=== PATIENT | female | born 1975 | race Caucasian/White ===

== ENCOUNTER → 2016-10-11 | Outpatient (CLI) | payer MEDICARE, MEDICAID | LOC: EMS 13:12 | PROVIDERS: ATTEND Family Medicine | DX: R41.82 Altered mental status, unspecified (principal); T50.904A Poisoning by unspecified drugs, medicaments and biological substances, undetermined, initial encounter; T68.XXXA Hypothermia, initial encounter ==

== ENCOUNTER → 2016-10-11 | Emergency (ER) | payer SELFPAY ==
[~2016-10-11] VITALS: Ht 162.6 cm; Wt 70.5 kg
[~2016-10-11] MED LIST: CEPH500T PO; LIDOCAINE PF 2% (XYLOCAINE) 5 ML VIAL INJ ONE; LORazepam 2 MG/ML (ATIVAN) 1 ML VIAL IV ONE; LORazepam 2 MG/ML (ATIVAN) 1 ML VIAL ONE; MAGNESIUM SULFATE 1GM VIAL 2 GM, THIAMINE INJ 100 MG, MULTIVITAMIN INJ 10 ML in D5LR 1,... IV SCH; PROPOFOL 10 MG/ML IV ONE; ROCURONIUM 50 MG/5 ML (ZEMURON) VIAL IV ONE; SODIUM CHLORIDE FLUSH 3 ML SYR IV ONE; SUCCINYLCHOLINE 20 MG/ML 10 ML VIAL ONE
[2016-10-11 10:15] VITALS: BP 140/107
--- NOTE | 2016-10-11 10:15 | NUR ---
MULTIPLE STAFF INCLUDING DR. REDD WITH PATIENT.
[2016-10-11] MEDS: SODIUM CHLORIDE FLUSH 10 ML SYR IV PRN ×2 (10:30→11:02)
--- NOTE | 2016-10-11 10:30 | NUR ---
IO ACCESS OBTAINED IN PT'S RT LOWER LEG BY EMS. MULTIPLE STAFF CONTINUE TO LOOK FOR PERIPHERAL IV ACCESS BUT WITHOUT SUCCESS.
--- NOTE | 2016-10-11 10:47 | NUR ---
EKG DONE BY RESP THERAPIST Melissa YEE.
--- NOTE | 2016-10-11 10:57 | NUR ---
HURST CATH DRAINAGE BAG EMPTIED BY Aleja MARROQUIN RN - TOTAL OF 700 ML YELLOW URINE MEASURED.
[2016-10-11 11:01] LABS: BASOPHILS % (AUTO) 0 % (0-2); EOSINOPHILS # (AUTO) 0.1 10^3uL; EOSINOPHILS % (AUTO) 1 % (0-4); LYMPHOCYTES # (AUTO) 1.8 X10^3; MEAN CORPUSCULAR HEMOGLOBIN 29.7 PG (26.0-34.0); MEAN CORPUSCULAR HGB CONC 33.1 g/dL (31.0-37.0); MEAN CORPUSCULAR VOLUME 90 FL (80-100); MEAN PLATELET VOLUME 8.2 FL (6.0-9.5); MONOCYTES # (AUTO) 0.5 X10^3; MONOCYTES % (AUTO) 8 % (3-11); NEUTROPHILS % (AUTO) 63 % (51-67); PLATELET COUNT 350 10^3uL (150-450)
--- NOTE | 2016-10-11 11:02 | NUR ---
ATIVAN 1 MG GIVEN PER IO BY Gayathri DIAZ RN
[2016-10-11 11:06] LABS: BILIRUBIN,URINE Negative (Negative); CLARITY,URINE Clear; GLUCOSE, URINE (UA) Negative (Negative); LEUKOCYTE ESTERASE ,URINE Negative (Negative); UROBILINOGEN,URINE 0.2 mg/dL (0.2-1.0)
[2016-10-11 11:12] LABS: COLOR,URINE Light Yellow
--- NOTE | 2016-10-11 11:14 | NUR ---
Michele HENDERSON CRNA HERE AND PREPARING TO INTUBATE PATIENT - ASSISTED BY Gayathri DIAZ RN
--- NOTE | 2016-10-11 11:15 | NUR ---
DR. REDD PUSHES PROPOFOL 120 MG PER IO
--- NOTE | 2016-10-11 11:16 | NUR ---
DR. REDD PUSHES SUCC 100 MG PER IO FOLLOWED BY NS FLUSH 10 ML.
[2016-10-11 11:17] LABS: AMPHETAMINE SCREEN, URINE Positive (Negative); CANNABINOID SCREEN, URINE Negative (Negative); METHAMPHETAMINE SCREEN URINE S POSITIVE (NEGATIVE); OPIATE SCREEN URINE Negative (Negative); PROPOXYPHENE STAT NEGATIVE (NEGATIVE)
[2016-10-11 11:17] LABS: ALBUMIN 4.1 g/dL (3.4-5.0); ALKALINE PHOSPHATASE 126 U/L (38-126); ANION GAP 16.2 MEQ/L (3-15); BUN/CREATININE RATIO 23 (10-20); CALCULATED IONIZED CALCIUM 4.1 mg/dL (3.8-4.6); CREATINE KINASE 148 U/L (30-135); TOTAL PROTEIN 7.3 g/dL (6.4-8.5)
--- NOTE | 2016-10-11 11:17 | NUR ---
FRATERNITY HOUSE COOK HAS PLACED 7.5 CUFFED ET TUBE, 22 AT TEETH, POSITIVE END-TIDAL CO2 PER IN-LINE DEVICE, POSITIVE BILAT BREATH SOUND PER DR. REDD ASCULTATION.
--- NOTE | 2016-10-11 11:19 | NUR ---
ET TUBE BEING SECURED BY PHARMACY SPECIALIST.
--- NOTE | 2016-10-11 11:26 | NUR ---
ROCURONIUM 50 MG BY SURGICAL INSTRUMENT TECHNICIAN WHO REMAINS WITH PATIENT IN CT ROOM.
--- NOTE | 2016-10-11 11:46 | NUR ---
PATIENT IN ER-6 WITH HORSE BREAKER WHO IS PREPARING TO INSERT A CENTRAL LINE.
--- NOTE | 2016-10-11 12:11 | NUR ---
FOUNDRY OPERATOR REQUESTS STAFF CONTACT SURGEON ON-CALL TO COME TO ED TO ASSIST WITH CENTRAL LINE PLACEMENT.
--- NOTE | 2016-10-11 12:11 | Diagnostic Imaging Report ---
PROCEDURE: CT head without contrast. TECHNIQUE: Multiple contiguous axial images were obtained through the brain without the use of intravenous contrast. DATE: October 11, 2016. COMPARISON: None. INDICATION: 61-year-old female, altered mental status. Found unconscious at home. FINDINGS: There is an endotracheal tube noted. There is a very small amount of fluid in the right and left maxillary sinuses. There is mild partial nonspecific opacification of the bilateral ethmoidal air cells. The mastoid air cells and middle ears are well aerated. The ventricles and cerebral spinal fluid spaces are of normal size and configuration for the patient's age. There is no mass effect or midline shift. There is no acute intracranial hemorrhage. There is no abnormal extra-axial fluid collection. IMPRESSION: 1. No identified acute intracranial abnormality. Dictated by: Dictated on workstation # [id number]
--- NOTE | 2016-10-11 12:16 | NUR ---
CONTRACT ADMINISTRATION MANAGER HAS OBTAINED CENTRAL LINE PLACEMENT INTO RT INTERNAL JUGULAR. SURGEON (DR. GARCIA) NOTIFIED BY Aleja PATTERSON RN.
--- NOTE | 2016-10-11 12:19 | NUR ---
DR REDD TALKS TO [facility] RE POSS TRANSPORT. CL
--- NOTE | 2016-10-11 12:28 | NUR ---
MEDICAL TERMINOLOGIST COMPLETING SUTURING AND DRSNG OF CENTRAL LINE.
--- NOTE | 2016-10-11 12:35 | NUR ---
SECOND DOSE OF ATIVAN 1 MG HELD PER ORDER OF WINE MASTER.
--- NOTE | 2016-10-11 12:35 | NUR ---
REAL ESTATE BROKER ADMINS ANOTHER 50 MG OF ROCURONIUM PER BROWN PORT OF CENTRAL LINE.
--- NOTE | 2016-10-11 12:37 | NUR ---
RADIOLOGY HAS DONE THE PORTABLE CHEST XRAY.
--- NOTE | 2016-10-11 12:44 | NUR ---
TEMPORAL TEMP - 95.5. RESP THERAPIST ATTEMPTING TO GET ABG.
--- NOTE | 2016-10-11 12:48 | NUR ---
NASAL TRUMPET PULLED BY Savannah SHOOK RN PER ORDER DR. REDD.
--- NOTE | 2016-10-11 12:48 | NUR ---
ABG OBTAINED BY RESP THERAPIST.
--- NOTE | 2016-10-11 12:49 | NUR ---
VENTILATIONS PER ET TUBE/BVM WITH OXYGEN AT 10 LPM CONTINUE PER STAFF. AWAITING VENTILATOR SET UP IN PREP FOR TRANSFER.
--- NOTE | 2016-10-11 12:51 | NUR ---
BOYFRIEND HERE IN ROOM WITH PATIENT. DR. REDD SPEAKING TO HIM ABOUT PT'S CONDITION AND PLAN OF CARE.
--- NOTE | 2016-10-11 12:54 | Diagnostic Imaging Report ---
INDICATION: Intubation. TECHNIQUE: A PA chest was obtained at 1239 hours. FINDINGS: An ET tube is seen with the tip overlying the mid to lower trachea. The right IJ central catheter tip overlies the low SVC. There is no pneumothorax or pleural fluid. There is poor inspiration but no focal infiltrate. The heart is normal in size. IMPRESSION: Life-support lines as above in good position. Poor inspiration with no focal infiltrate, pleural fluid, or pneumothorax. Dictated by: Dictated on workstation # [id number]
--- NOTE | 2016-10-11 13:00 | NUR ---
PT VALUABLES: SILVER COLORED LIP RING, SILVER COLORED CHAIN NECKLACE, SILVER COLORED CHAIN BRACELET, SILVER COLORED RING, BLACK COLORED WRIST WATCH, AND 2 EARRINGS GIVEN TO GASTON HURTADO (BOYFRIEND) BY Aleja MARROQUIN RN.
--- NOTE | 2016-10-11 13:02 | NUR ---
PATIENT REPORT BEING GIVEN TO [facility] NURSE. EMS MANGLE FEEDER HERE AND ALSO LISTENING TO PT REPORT.
--- NOTE | 2016-10-11 13:15 | NUR ---
PT BEING LOADED ONTO EMS CART
--- NOTE | 2016-10-11 13:21 | NUR ---
PATIENT DEPARTS WITH IO AND IJ LINES INTACT AND WITH IVF INFUSING.
[2016-10-11 14:28] LABS: ABG OXYGEN SATURATION 100 % (95-98); ABG PCO2 42 mmHg (35-45); ABG PH 7.35 (7.35-7.45); ABG PO2 224 mmHg (80-105)
--- NOTE | 2016-10-12 12:50 | PAIN MANAGEMENT ---
Date of note: 10/11/2016 Procedure: Emergent intubation The patient is approximately 41-years old. She presents in the ER under Dr. Fausto Melissa. Anesthesia was consulted for the purpose of airway management. The patient arrived with poly-substance drug overdose and is very lethargic. She comes in and out of it. At this point in time we are concerned about airway. Anesthesia was asked for emergent intubation with the idea to transport patient afterwards. Vital signs were stable. The patient was mid 90s on 3 liters per nasal cannula. She also had a nasal trumpet in place. Unresponsive to painful stimulation. IV access was a right IO placed EMS. It does flow and was used to induce intubation. Medicines given were 120 mg of propofol followed by 100 mg of succinylcholine. Cricoid pressure was held in place throughout. A 7.5 oral endotracheal tube was placed and secured at 22 cm at the teeth. Positive end-tidal CO2 per inline device noted. Positive breath sounds bilateral and equal noted per ER physician Dr. Melissa. The patient was bag ventilated by anesthesia. The patient is waiting to go to CT. The patient's vital signs remained stable at 99% on 10 liters per Ambu bag. The patient tolerated the procedure well.
== END | disposition short-term general hospital (02) ==
LOC: EDUNIT# 10:15 → ED 10:16 → EDUNIT# 10:16
DX: T42.4X1A Poisoning by benzodiazepines, accidental (unintentional), initial encounter (principal); T43.621A Poisoning by amphetamines, accidental (unintentional), initial encounter; R82.5 Elevated urine levels of drugs, medicaments and biological substances; R68.0 Hypothermia, not associated with low environmental temperature; Y92.002 Bathroom of unspecified non-institutional (private) residence as the place of occurrence of the external cause; F19.188 Other psychoactive substance abuse with other psychoactive substance-induced disorder
CPT/HCPCS: 31500; 36415; 36680; 51702; 70450; 80053; 80307; 80320; 80329; 81003; 82550; 82553; 82803; 83605; 84484; 85025; 86140; 87040; 93005; 96361; 96365; 96375; 96376; 99285; J0330; J1642; J2001; J2060; J3411; J3475; J7030; 71010

== ENCOUNTER → 2016-10-11 | Emergency (ER) | payer MEDICARE, MEDICAID ==
--- NOTE | 2016-10-11 15:19 | PAIN MANAGEMENT ---
Date of note: 10/11/2016 Procedure: Emergent intubation The patient is approximately 41-years old. She presents in the ER under Dr. Fausto Melissa. Anesthesia was consulted for the purpose of airway management. The patient arrived with poly-substance drug overdose and is very lethargic. She comes in and out of it. At this point in time we are concerned about airway. Anesthesia was asked for emergent intubation with the idea to transport patient afterwards. Vital signs were stable. The patient was mid 90s on 3 liters per nasal cannula. She also had a nasal trumpet in place. Unresponsive to painful stimulation. IV access was a right IO placed EMS. It does flow and was used to induce intubation. Medicines given were 120 mg of propofol followed by 100 mg of succinylcholine. Cricoid pressure was held in place throughout. A 7.5 oral endotracheal tube was placed and secured at 22 cm at the teeth. Positive end-tidal CO2 per inline device noted. Positive breath sounds bilateral and equal noted per ER physician Dr. Melissa. The patient was bag masked by anesthesia. The patient is waiting on at this point in time to go to CT. the patient's vital signs remained stable at 99% on 10 liters per Ambu bag. The patient tolerated the procedure well.
--- NOTE | 2016-10-11 15:22 | PAIN MANAGEMENT ---
Date of Note: 10/11/2016 This is a 41-years old female patient who presents in the ER emergently under Dr. Fausto Melissa. She was brought in with polysubstance drug overdose. The patient was just intubated by anesthesia. The patient needs to go to CT. Anesthesia went with patient for airway management throughout CT. The patient tolerated the procedure well. The patient was bagged by anesthesia throughout. Vital signs remained stable. Sats remained in the upper 90s on 10 liters per Ambu bag. The patient is noted to be cold. The patient was covered and tried to warm up as best as possible. She tolerated the procedure in CT well.
--- NOTE | 2016-10-11 15:30 | PAIN MANAGEMENT ---
Date of note: 10/11/2016 Procedure: IJ line catheter placement This is a 41-year-old patient who presents under the care of Dr. Fausto Melissa in the ER. Anesthesia was consulted for the purpose of a for central line placement secondary to the need for IV access. The patient had been poked multiple times without success. An interosseous IV was placed in the interim. Anesthesia was consulted for central line specifically. Consent is obtained per physician as an emergency. A right IJ triple lumen was placed with the use of ultrasound guidance. Orders for procedure verified. Medical history including allergies and medications reviewed. After informed consent was obtained, the patient was placed in Trendelenburg position. Landmarks identified and ultrasound used to identify the internal jugular and carotid artery. The site was then prepped and draped in aseptic fashion. The skin and overlying tissues localized with 5 mL of 1% lidocaine using a 25-gauge 1.5-inch needle. Negative aspiration during localization. A 23-gauge 1.5-inch needle was then used to locate central vein. The vein was then cannulated with the supplied needle and found to be non-pulsatile. The J-wire was advanced without difficulty or ectopy using Seldinger technique. The skin was then scored with #11 scalpel and the dilator was passed over the J-wire without difficulty. The dilator was removed and the catheter was passed over the J-wire to 18 cm. All ports aspirated of air with blood return noted. Port caps applied to central line and then flushed with 10 mL normal saline. Chest x-ray revealed positive placement and verified by Dr. Melissa. The site was sutured in place and a clean dressing placed over. All ports were flushed and heparinized. The nurse was notified it was okay to use the line as ordered.
== END ==
LOC: ED 12:43
DX: Z53.8 Procedure and treatment not carried out for other reasons (principal)

== ENCOUNTER 2016-10-16 01:23 | Emergency (ER) | payer MEDICARE, MEDICAID ==
[~2016-10-16] VITALS: Ht 165.1 cm; Wt 80.9 kg
--- OUTSIDE RECORDS SUMMARY | 2016-10-16 01:30 | XMS REPORT | Continuity of Care Document ---
Author Author Brandie Diego Address Unknown Phone Unavailable Care Team Providers Care Geoscience Professor Name Role Phone [employer] Unavailable Unavailable Problems Problem Status Onset Date Classification Date Reported Comments Source Cervical myofascial pain syndrome Active Medical 2011 [facility] Intractable Chronic Migraine without Aura with Status Migrainosus Active Medical 08/31/2011 [facility] Back pain Active Medical 09/20/2011 [facility] Muscle spasms of neck Active Medical 01/14/2012 [facility] Neuropathic pain Active Medical 01/14/2012 [facility] Nausea and Vomiting Active Medical 10/06/2012 [facility] Medications Medication Details Route Status Patient Instructions Ordering Provider Order Date Source Soma 350 mg oral tablet PO Active Each refill must last 1 month. 2013 [facility] Ney 10 mg-325 mg oral tablet PO Active Max of 6 a day. Each refill must last 1 month. 2013 [facility] gabapentin 300 mg oral capsule PO Active GARCIA 2013 [facility] Ney 10 mg-325 mg oral tablet PO Discontinued Max of 6 a day. Each refill must last 1 month. 2013 [facility] Soma 350 mg oral tablet PO Discontinued Each refill must last 1 month. 2012 [facility] gabapentin 300 mg oral capsule PO Discontinued 2013 [facility] Soma 350 mg oral tablet PO Completed 10/05/2012 [facility] gabapentin 300 mg oral capsule PO Discontinued GARCIA 10/05/2012 [facility] Ney 10 mg-325 mg oral tablet PO Completed Max of 6 daily GARCIA 10/05/2012 [facility] fentanyl 1200 mcg buccal film BUCC Discontinued 1 patch every three days 06/13/2012 [facility] Ney 10 mg-325 mg oral tablet PO Discontinued Max of 6 daily GARCIA 06/13/2012 [facility] gabapentin 300 mg oral capsule PO Discontinued GARCIA 06/13/2012 [facility] Soma 350 mg oral tablet PO Discontinued 06/13/2012 [facility] carisoprodol 350 mg oral tablet PO Discontinued Do not fill this rx untill 05/14/2012 GARCIA 05/14/2012 [facility] Duragesic-12 transdermal film, extended release TOP Completed GARCIA 04/14/2012 [facility] gabapentin 300 mg oral capsule PO Discontinued GARCIA 03/14/2012 [facility] carisoprodol 350 mg oral tablet PO Completed Do not dispense refill untill 04/14/2012 GARCIA 03/14/2012 [facility] Ney 10 mg-325 mg oral tablet PO Completed Maximum of 6 daily GARCIA 03/14/2012 [facility] Duragesic-12 transdermal film, extended release TOP Discontinued GARCIA 03/14/2012 [facility] Soma 350 mg oral tablet PO Canceled INFORMATION 02/20/2012 [facility] Duragesic-12 transdermal film, extended release TOP Discontinued GARCIA 02/20/2012 [facility] Ney 10 mg-325 mg oral tablet PO Discontinued Maximum of 6 daily GARCIA 02/18/2012 [facility] carisoprodol 350 mg oral tablet PO Discontinued GARCIA 02/17/2012 [facility] Duragesic-12 transdermal film, extended release TOP Completed GARCIA 01/20/2012 [facility] gabapentin 300 mg oral capsule PO Discontinued GARCIA 01/19/2012 [facility] Zofran 4 mg oral tablet PO Completed GARCIA 01/14/2012 [facility] Soma 350 mg oral tablet PO Discontinued GARCIA 11/19/2011 [facility] Duragesic-12 transdermal film, extended release TOP Discontinued GARCIA 11/19/2011 [facility] Ney 10 mg-325 mg oral tablet PO Discontinued Maximum of 6 daily GARCIA 11/19/2011 [facility] gabapentin 300 mg oral capsule PO Discontinued GARCIA 11/19/2011 [facility] Neurontin 300 mg oral capsule PO Discontinued GARCIA 10/27/2011 [facility] Duragesic-12 transdermal film, extended release TOP Completed GARCIA 09/20/2011 [facility] Duragesic-12 transdermal film, extended release TOP Completed GARCIA 09/20/2011 [facility] Neurontin 300 mg oral capsule Discontinued 1 Cap PO daily at bedtime x 5 days increase to 1 Cap PO bid x 5 days increase to 1 Cap PO tid. GARCIA 09/02/2011 [facility] OxyContin 10 mg oral tablet, extended release Discontinued INFORMATION 09/02/2011 [facility] Maxalt-OCEANOGRAPHER ASSISTANT 10 mg oral tablet, disintegrating Documented 08/31/2011 [facility] Soma 350 mg oral tablet PO Completed 08/31/2011 [facility] Lortab 10/500 oral tablet Discontinued 08/31/2011 [facility] Lidoderm TOP Documented 08/31/2011 [facility] aspirin 81 mg oral enteric coated tablet Documented 08/31/2011 [facility] Singulair 10 mg oral tablet PO Documented 08/31/2011 [facility] Niaspan ER 1000 mg oral tablet, extended release PO Documented 08/31/2011 [facility] Premarin 0.9 mg oral tablet PO Documented 08/31/2011 [facility] Celexa 40 mg oral tablet PO Documented 08/31/2011 [facility] Abilify 10 mg oral tablet PO Documented 08/31/2011 [facility] PO [facility] Allergies, Adverse Reactions, Alerts Substance Category Reaction Severity Reaction type Status Date Reported Comments Source Seasonale Datatype(AL1.2)-Environment congestion Allergy ACTIVE 12/29/2012 [facility] [place] Immunizations Immunization Date Given Site Status Last Updated Comments Source onabotulinumtoxinA 12/29/2012 Neck completed [facility] onabotulinumtoxinA 06/13/2012 Face completed [facility] tetanus toxoid 05/06/2012 Immunization, History completed MIGNERY [facility] onabotulinumtoxinA 01/14/2012 Neck completed [facility] onabotulinumtoxinA 09/20/2011 Face completed IDICULLA [facility] influenza virus vaccine 05/01/2011 Immunization, History completed [facility] tetanus toxoid 04/06/2009 Immunization, History completed [facility] Results Order Name Results Value Reference Range Date Interpretation Comments Source Office/Clinic Notes Office/Clinic Notes This nurse called [facility], spoke to Clary, clarification on Ney 10/325mg, 1 tab, po, q 4 hrs prn pain, Max of 6 daily, Qty 180, Filled 08/13/13 x1 RF, Soma 350 mg 1 tab, po, qid, Qty 120, Filled x0 RF, Gabapentin 300 mg, 1 tab, po, tid, qty 270. Last filled 05/30/13 x0 RF. Due to unexpected medical leave, Dr. Garcia is no longer able to write any scripts, for Winifred's pain management. The above listing of medications was verified through [facility] when filled and if there are any refills left. Dr. Garcia is expected to return mid-December, at that time, if no futher complications , we would be glad to take over medications ,if needed. 09/28/2013 [facility] Office/Clinic Notes Office/Clinic Notes This nurse attempted to call Winifred regarding Dr. Garcia not able to write scipts at this time due to extended medical leave, no answer and not able to leave a message due to phone mail was full. 09/25/2013 [facility] Office/Clinic Notes Office/Clinic Notes This nurse called [facility] in [place], [place], spoke to Josh , per Dr. Piotr MD, phone order, read back and verified, Ney 10/325, 1 Tab, PO, every 4 hours, Max of 6 daily, Qty 180, x1 refill. 06/19/2013 [facility] Office/Clinic Notes Office/Clinic Notes This nurse called and spoke to Winifred, notifying her that Dr. Garcia approved her medication refills when due and requested what pharmacy needed to be called to. Winifred requested [facility] in [facility] at [phone]. This nurse then called [facility] in [facility], per Dr. Piotr MD , Soma 350mg, 1 Tab, PO, QID, Qty 120, x 3 refills. 06/08/2013 [facility] Office/Clinic Notes Office/Clinic Notes This nurse called Dr. Piotr MD, notifying her that Winifred was requesting refills on her medication, Soma, and would need Ney and Gabapentin filled on 06/20/13. Dr. Piotr MD, gave a phone order that it was ok to refill as before on her medications Soma, Ney and Gabapentin when they are due. This nurse showed understanding and was appreciative of information. 06/08/2013 [facility] Office/Clinic Notes Office/Clinic Notes Mailed [employer] mileage reimbursement sheet to [address] [place] [address], [address], [place] [address] 05/15/2013 [facility] Office/Clinic Notes Office/Clinic Notes [facility] [address] [address] [address] [place] [address] PATIENT: WINIFRED CHRISTIAN MR #: [id number] PCP: None, Stated REFERRING PHYSICIAN: Self, Referral : 1975 DATE SEEN: 05/10/2013 Chief Complaint Winifred is being seen today for follow up for medication management. History of Present Illness Patient is a 38-year-old female who comes today for followup regarding chronic pain of the neck and back as well as chronic myofascial pain. Patient is rating her overall pain as 8/10, exacerbating to 10/10. She reports that she has 50%-60% relief with her current medication regimen which she believes makes a real difference in her life. She is reporting better physical function, family relationships, mood, sleep pattern, and overall functioning. Patient is currently on Soma 350 mg, 1 tab 4 times a day for chronic spasms of the neck and upper back. She also takes Ney 10/325, 1 tab every 4 hours as needed for pain, and gabapentin 300 mg, 3 times a day. We have asked for approval on Botox for patient's chronic spasms, that is pending at this time. After discussing her pain medication and her physical exam, I did offer her trigger point injections to the neck and upper back today. She is agreeable. We will continue to seek approval on botulism toxin treatment for her chronic spasms in the neck and upper back. Pain Assessment Cognitive Status: Independent, decisions consistent/reasonable Intensity: 5 Location: Other: neck/ low back/ headaches Scale Type: 0-10 Pain scale Time Pattern: Chronic, Constant Onset: Gradual Quality: Aching, Burning, Cramping, Radiating, Stabbing, Throbbing Radiating: Bilateral Radiation Location: Head, Hip, Other: buttocks Associated Symptoms: Unable to participate in physical activity Aggravating Factors: Moisture, Movement, Other: Turning of head./ Loud music Comment: Back Movement Alleviating Factors: Exercise, Medications, Rest Interventions: Medications, Rest Review of Systems HEENT: Headache, Nasal drainage, Nasal congestion, Neck pain, Neck stiffness Musculoskeletal: Back Pain, Muscle or joint pain, Stiffness Neurological: Numbness, Tingling Comment: FINGERS Psychiatric: Depression Pertinent negative for the following system(s): Constitutional, Respiratory, Cardiovascular, GI/, Integumentary, Hematologic, Endocrine Allergies Seasonale Current Medications Abilify 10 mg oral tablet (aripiprazole), 1 Tab, Daily aspirin 81 mg oral enteric coated tablet (aspirin), 1 Tab, Daily, Comment: 2 tabs po daily Celexa 40 mg oral tablet (citalopram), 1 Tab, Daily gabapentin 300 mg oral capsule (gabapentin), 300 mg, 3 times a day Lidoderm (lidocaine topical), Every 24 hours Maxalt-OCEANOGRAPHER ASSISTANT 10 mg oral tablet, disintegrating (rizatriptan), 10 mg, Every 24 hours, Comment: Takes as needed for Migraine. Niaspan ER 1000 mg oral tablet, extended release (niacin), 1 Tab, At bedtime Ney 10 mg-325 mg oral tablet (acetaminophen-hydrocodone), 1 Tab, PRN, Every 4 hours Premarin 0.9 mg oral tablet (conjugated estrogens), 1 Tab, Daily Singulair 10 mg oral tablet (montelukast), 1 Tab, Every evening Soma 350 mg oral tablet (carisoprodol), 350 mg, 4 times a day Xanax 2 mg oral tablet (alprazolam), 1 Tab PO QID, 6 HRS APART, PRN PAIN, PRN, Problems and Past Medical History Active Back pain Cervical myofascial pain syndrome Intractable Chronic Migraine without Aura with Status Migrainosus Muscle spasms of neck Nausea and Vomiting Neuropathic pain Family History Family Status Father: Mother: Living Paternal Grandfather: Living Paternal Grandmother: Living Maternal Grandfather: Maternal Grandmother: Living Neurological Past Medical History Frequent Headaches Medical History: Mother Neurological, Other Medical History: Mother, Father, COPD, HEP C, CANCER Oncologic Past Medical History Oncologic, Other Medical History: Father, CANCER UNKNOWN WHAT KIND Psychiatric Past Medical History Anxiety Medical History: Mother Depression Medical History: Mother Respiratory Past Medical History COPD Medical History: Father Family Status Reviewed With Patient: Review complete Procedure History Hysterectomy - vaginal * tonsillectomy Hernia repair x3 Lower Back Neck Surgery x3 Social History Alcohol Use: Current Alcohol Type: Wine Alcohol Frequency: Other: occ. Caffeine Use: Current Caffeine Type: Soda Caffeine Frequency: Other: occ. Current Tobacco Usage: Denies Recreational Drug Use: Denies Physical Examination TEMP BP Pulse RR MAP O2 Sat 36.5 110/75 94 20 86.67 Blood Pressure Location: Left arm Oxygen Therapy: Room air Weight Height BMI BSA 77.8 kg (171.52 lbs) 157.0 cm 31.6 kg/m2 1.842 m2 Scale: Standing digital General: Patient is a 38-year-old female sitting on the exam table. She does not appear to be in any distress. Neurological: Patient is alert and oriented x3. Cranial nerves II-XII are grossly intact. Psychological: Patient appears to have the appropriate mood and affect. Respiratory: Clear to auscultation bilaterally. No wheezes, rhonchi, rales, or crackles. Cardiovascular: S1, S2, regular rate and rhythm. No murmurs, rubs, or gallops. Abdomen: Soft, nontender, bowel sounds are present. Musculoskeletal: Patient does have full range of motion of all extremities with 5/5 strength in the upper and lower extremities. Patient has severe spasms and myofascial pain on the bilateral splenius capitis and bilateral trapezius today. This is a very chronic disorder that has exacerbated over the years due to her cervical surgery. She denies any pain in her lower back today. Extremities: No cyanosis or edema. Skin: Warm and dry without rashes or lesions. Procedure Trigger point injection of the right splenius capitis for myofascial pain. The area of greatest tenderness was palpated and marked on the skin on the right splenius capitis. The skin was cleansed with Betadine prep. A 27 gauge needle was used to inject 1 mL of Kenalog (40 mg) diluted with 2 mL of 1% lidocaine into the right splenius capitis. The patient tolerated the procedure well. The skin was cleansed and a band aid was placed. The patient was offered an ice pack for comfort. Procedure Trigger point injection of the left splenius capitis for myofascial pain. The area of greatest tenderness was palpated and marked on the skin on the left splenius capitis. The skin was cleansed with Betadine prep. A 27 gauge needle was used to inject 1 mL of Kenalog (40 mg) diluted with 2 mL of 1% lidocaine into the left splenius capitis. The patient tolerated the procedure well. The skin was cleansed and a band aid was placed. The patient was offered an ice pack for comfort. Procedure Trigger point injection of the right trapezius for myofascial pain. The area of greatest tenderness was palpated and marked on the skin on the right trapezius. The skin was cleansed with Betadine prep. A 27 gauge needle was used to inject 1 mL of Kenalog (40 mg) diluted with 2 mL of 1% lidocaine into the right trapezius. The patient tolerated the procedure well. The skin was cleansed and a band aid was placed. The patient was offered an ice pack for comfort. Procedure Trigger point injection of the left trapezius for myofascial pain. The area of greatest tenderness was palpated and marked on the skin on the left trapezius. The skin was cleansed with Betadine prep. A 27 gauge needle was used to inject 1 mL of Kenalog (40 mg) diluted with 2 mL of 1% lidocaine into the left trapezius. The patient tolerated the procedure well. The skin was cleansed and a band aid was placed. The patient was offered an ice pack for comfort. Impression 1. Cervical myofascial pain syndrome (729.1) 2. Chronic mid back pain (724.5) 3. Intractable Chronic Migraine without Aura with Status Migrainosus (346.73) 4. Muscle spasms of neck (728.85) 5. Neuropathic pain (729.2) Plan Orders this visit: Trigger Point Inj 3 Or More Muscles -Clinic Follow Up 1 Month -Request triamcinolone, 60 mg, X 1 DOSE triamcinolone, 60 mg, X 1 DOSE 1. Patient received trigger point injections to the bilateral splenius capitis and bilateral trapezius for as above. 2. For her pain we will refill Lortab 10/325, 1 tab every 4 hours as needed for pain. 3. We will refill Soma 350 mg, 1 tab 4 times a day for severe spasms of the neck and upper back. 4. We will refill gabapentin 300 mg, 3 times a day for patient's neuropathic component of pain. 5. We will precertify patient for botulism toxin therapy for chronic spasms of the neck and upper back. 6. We will followup in 1 month. Hopefully, at that time we will have the preapproval in place for her botulism toxin therapy. Thank you for your continued support. TR: [id number] JG#: [id number] [Electronically Signed on 05.14.2013 03:43 PM] Diana Garcia MD </br> 05/10/2013 [Electronically Signed on 05.14.2013 03:43 PM] Diana Garcia MD [facility] Office/Clinic Notes Office/Clinic Notes This nurse faxed Botox Hotline for approval 300 units for muscle spasticity, 728.85, CPT 71576, to be done in office setting, waiting for approval authorization. 05/10/2013 [facility] Office/Clinic Notes Office/Clinic Notes This nurse placed Logistic Log for gas mileage for Dr. Garcia to sign. 05/10/2013 [facility] Ambulatory Depart Summary Ambulatory Depart Summary [address] [address] [address] [place] [address] PERSON INFORMATION Name WINIFRED CHRISTIAN Age 38 Years 1975 12:00 AM Sex Female Language Costa Rican PCP None, Stated Marital Status Legally Time Zone N [id number] Visit Id Visit Reason MED MANAGEMENT/ POSSIBLE INJ/AND BOTOX EVAL Specialty Enc Type [facility] Med Service OUTPT-Outpatient/Hospital Referred by Track [facility] Clinic Discharge Process Discharge Tracking Id Checkout Checkin Acuity Dispo Type Arrival 05/10/2013 1:01 PM Reg Status LOS Address: [address] [place] [id number] [facility] DOC NOTES PROVIDER INFORMATION VITALS INFORMATION Height: 5ft 1.8in Weight: 171.52 lbs (BMI: 31.6) Temp: 97.7 F Heart Rate: 94 Respiratory: 20 O2 Sat: BP: 110/75 LOCATION INFORMATION Arrival Nurse Unit Room Bed ORDERS INFORMATION Start Time Order Type Status Stop Time Provider 05/10/2013 2:04 PM Follow Up 1 Month -Request Patient Care -Request Ordered 10/2012 2:04 PM Diana Garcia MD MEDICAL INFORMATION Allergy Info: Seasonale HOME MEDICATIONS Abilify 10 mg oral tablet 1 Tab, Oral, Daily aspirin 81 mg oral enteric coated tablet 1 Tab, Oral, Daily, 2 tabs po daily Celexa 40 mg oral tablet 1 Tab, Oral, Daily gabapentin 300 mg oral capsule 300 mg, Oral, 3 times a day Lidoderm , Topical, Every 24 hours Maxalt-OCEANOGRAPHER ASSISTANT 10 mg oral tablet, disintegrating 10 mg, Oral, Every 24 hours, Takes as needed for Migraine. Niaspan ER 1000 mg oral tablet, extended release 1 Tab, Oral, At bedtime Ney 10 mg-325 mg oral tablet 1 Tab, Oral, Every 4 hours, as needed, for pain, 3 Refills, Max of 6 a day. Each refill must last 1 month. Premarin 0.9 mg oral tablet 1 Tab, Oral, Daily Singulair 10 mg oral tablet 1 Tab, Oral, Every evening Soma 350 mg oral tablet 350 mg, Oral, 4 times a day, 3 Refills, Each refill must last 1 month. Xanax 2 mg oral tablet See Instructions, 1 Tab PO QID, 6 HRS APART, as needed PAIN, as needed, for anxiety, 1 Tab PO QID, 6 HRS APART, PRN PAIN DISCHARGE INFORMATION Discharge Disposition: Discharge Location: PATIENT EDUCATION INFORMATION Instructions: BACK CARE TIPS Follow up: With: Address: When: Diana Garcia [address] [place] [address] [id number] [facility] (1) 06/07/2013 13:00:00 Comments: DIAGNOSIS Cervical myofascial pain syndrome; Chronic mid back pain; Intractable Chronic Migraine without Aura with Status Migrainosus 05/10/2013 [facility] Amb Nurs Intake Event Amb Nurs Intake Event 2012 [facility] Office/Clinic Notes Office/Clinic Notes This nurse faxed [facility] reimbursement form signed by Dr. Piotr MD, for Winifred Rod. 02/28/2013 [facility] Office/Clinic Notes Office/Clinic Notes [facility] [address] [place] [address] [address] [place] [address] PATIENT: WINIFRED CHRISTIAN MR #: [id number] PCP: None, Stated REFERRING PHYSICIAN: Self, Referral : 1975 DATE SEEN: 2013 Chief Complaint Winifred is here for follow up after Botox injection. History of Present Illness Patient is a 37-year-old white female with a history of chronic neck pain, chronic back pain, and chronic myofascial pain. She comes for a 1 month followup regarding botulism toxin injection for chronic spasms of the upper neck and upper back. Patient states that she is getting some relief from the Botox, however, she reports that she prefers trigger point injections to that area. Patient comes with a migraine headache today rating her pain as a 9/10. She did travel 3 1/2 hours in a car for this appointment. She states that she has been under a lot of stress with family and her personal life. Patient is taking antidepressant medication, Abilify and another medication which she cannot remember the name of today. Pain Assessment Cognitive Status: Independent, decisions consistent/reasonable Intensity: 7 Location: Head Quality: Aching Review of Systems Musculoskeletal: Back Pain, Muscle or joint pain Neurological: Other: migraines Psychiatric: Depression Pertinent negative for the following system(s): Constitutional, HEENT, Respiratory, Cardiovascular, GI/, Integumentary, Hematologic, Endocrine Allergies Seasonale Current Medications Abilify 10 mg oral tablet (aripiprazole), 1 Tab, Daily aspirin 81 mg oral enteric coated tablet (aspirin), 1 Tab, Daily, Comment: 2 tabs po daily Celexa 40 mg oral tablet (citalopram), 1 Tab, Daily gabapentin 300 mg oral capsule (gabapentin), 300 mg, 3 times a day Lidoderm (lidocaine topical), Every 24 hours Maxalt-OCEANOGRAPHER ASSISTANT 10 mg oral tablet, disintegrating (rizatriptan), 10 mg, Every 24 hours, Comment: Takes as needed for Migraine. Niaspan ER 1000 mg oral tablet, extended release (niacin), 1 Tab, At bedtime Premarin 0.9 mg oral tablet (conjugated estrogens), 1 Tab, Daily Singulair 10 mg oral tablet (montelukast), 1 Tab, Every evening Problems and Past Medical History Active Back pain Cervical myofascial pain syndrome Intractable Chronic Migraine without Aura with Status Migrainous Muscle spasms of neck Nausea and Vomiting Neuropathic pain Family History Family Status Father: Mother: Living Paternal Grandfather: Living Paternal Grandmother: Living Maternal Grandfather: Maternal Grandmother: Living Neurological Past Medical History Frequent Headaches Medical History: Mother Neurological, Other Medical History: Mother, Father, COPD, HEP C, CANCER Oncologic Past Medical History Oncologic, Other Medical History: Father, CANCER UNKNOWN WHAT KIND Psychiatric Past Medical History Anxiety Medical History: Mother Depression Medical History: Mother Respiratory Past Medical History COPD Medical History: Father Family Status Reviewed With Patient: Review complete Procedure History Hysterectomy - vaginal * tonsillectomy Hernia repair x3 Lower Back Neck Surgery x3 Social History Alcohol Use: Current Alcohol Type: Wine Alcohol Frequency: Other: occ. Caffeine Use: Current Caffeine Type: Soda Caffeine Frequency: Other: occ. Current Tobacco Usage: Denies Recreational Drug Use: Denies Physical Examination TEMP BP Pulse RR MAP O2 Sat 36.5 127/86 80 20 99.67 Blood Pressure Location: Left arm Weight Height BMI BSA 157.0 cm General: Patient is a 37-year-old white female lying on the exam table. She does have an ice pack on her head due to her migraine. Neurological: Patient is alert and oriented x3. Cranial nerves II-XII are grossly intact. Psychological: Patient appears to have the appropriate mood and affect. Respiratory: Clear to auscultation bilaterally. No wheezes, rhonchi, rales, or crackles. Cardiovascular: S1, S2, regular rate and rhythm. No murmurs, rubs, or gallops. Abdomen: Soft, nontender, bowel sounds are present. Musculoskeletal: Patient does have full range of motion of all extremities with 5/5 strength in the upper and lower extremities. Patient continues to have denseness in the neck and shoulders from myofascial pain. Exam was abbreviated today due to her migraine. Extremities: No cyanosis or edema. Skin: Warm and dry without rashes or lesions. Impression 1. Cervical myofascial pain syndrome (729.1) 2. Chronic back pain greater than 3 months duration (724.5) 3. Muscle spasms of neck (728.85) 4. Neuropathic pain (729.2) 5. Intractable Chronic Migraine without Aura with Status Migrainous (346.73) Plan Medication changes this visit: New Ney 10 mg-325 mg oral tablet, 1 Tab, PRN, Q4H, Quantity: 180, Refills: 3 Soma 350 mg oral tablet, 350 mg, QID, Quantity: 120, Refills: 3 Refill gabapentin 300 mg oral capsule, 300 mg, TID, Quantity: 270, Refills: 0 Orders this visit: meperidine, 25 mg, X 1 DOSE 1. Patient was given an intramuscular injection of Demerol 25 mg for her migraine today. 2. Patient was given refills on her Lortab, Soma, and Neurontin. 3. She will plan to followup in 4 months. Thank you for your continued support. TR: [id number] JG#: [id number] [Electronically Signed on 02.16.2013 04:43 AM] Diana Garcia MD </br> 2013 [Electronically Signed on 02.16.2013 04:43 AM] Diana Garcia MD [facility] Ambulatory Depart Summary Ambulatory Depart Summary [facility] [address] [address] [place] [id number] PERSON INFORMATION Name WINIFRED CHRISTIAN Age 38 Years 1975 Sex Female Language Costa Rican PCP None, Stated Marital Status Legally Time Zone Visit Id Visit Reason FOLLOW UP AFTER BOTOX 12-29-12 Specialty Enc Type [facility] Med Service OUTPT-Outpatient/Hospital Referred by Track Group Clinic Discharge Process Discharge Tracking Id Checkout Checkin Acuity Dispo Type Arrival 2013 1:27 PM Reg Status LOS Address: [address] [place] [address] PHYS DOC NOTES PROVIDER INFORMATION VITALS INFORMATION Height: 5ft 1.8in Weight: 174.61 lbs Temp: 97.7 F Heart Rate: 80 Respiratory: 20 O2 Sat: BP: 127/86 LOCATION INFORMATION Arrival Nurse Unit Room Bed ORDERS INFORMATION MEDICAL INFORMATION Allergy Info: Seasonale HOME MEDICATIONS Abilify 10 mg oral tablet 1 Tab, Oral, Daily aspirin 81 mg oral enteric coated tablet 1 Tab, Oral, Daily, 2 tabs po daily Celexa 40 mg oral tablet 1 Tab, Oral, Daily gabapentin 300 mg oral capsule 300 mg, Oral, 3 times a day, Printed Lidoderm , Topical, Every 24 hours Maxalt-OCEANOGRAPHER ASSISTANT 10 mg oral tablet, disintegrating 10 mg, Oral, Every 24 hours, Takes as needed for Migraine. Niaspan ER 1000 mg oral tablet, extended release 1 Tab, Oral, At bedtime Ney 10 mg-325 mg oral tablet 1 Tab, Oral, Every 4 hours, as needed, for pain, 3 Refills, Max of 6 a day. Each refill must last 1 month., Printed Premarin 0.9 mg oral tablet 1 Tab, Oral, Daily Singulair 10 mg oral tablet 1 Tab, Oral, Every evening Soma 350 mg oral tablet 350 mg, Oral, 4 times a day, 3 Refills, Each refill must last 1 month., Printed DISCHARGE INFORMATION Discharge Disposition: Discharge Location: PATIENT EDUCATION INFORMATION Instructions: Follow up: With: Address: When: Diana Garcia [address] [place] [address] [place] [address] Business (1) 06/14/2013 13:45:00 Comments: DIAGNOSIS 2013 [facility] Amb Nurs Intake Event Amb Nurs Intake Event 2012 [facility] Amb Nurs Intake w Hx Event Amb Nurs Intake w Hx Event 12/29/2012 [facility] Level of Functioning Grid-Clinic Level of Functioning Grid-Clinic 12/29/2012 [facility] Procedure Reports Procedure Reports [facility] [address] [place] [address] [place] [id number] PATIENT: WINIFRED CHRISTIAN MR #: [id number] PCP: None, Stated REFERRING PHYSICIAN: Self, Referral : 1975 DATE SEEN: 12/29/2012 PROCEDURE REPORT Chief Complaint Patient is here for Botox treatments. History of Present Illness Patient is a 37-year-old white female who is here today for botulism toxin treatment for chronic spasms. We will plan to administer 300 units of botulism toxin in the bilateral splenius capitis, bilateral trapezius, and paraspinal musculature. Procedure Botulism toxin therapy to the bilateral splenius capitis, bilateral trapezius, and bilateral paraspinal muscles from C7 to T3. The above musculature were identified. The skin was cleansed with Betadine prep. Botulism toxin was prepared with 1 mL of 0.9% preservative free normal saline per 100 units of botulism toxin. A total of 25 units was given to the right splenius capitis. A total of 25 units was given to the left splenius capitis. A total of 50 units was given to the right trapezius. A total of 50 units was given to the left trapezius. A total of 150 units was distributed through the paraspinal musculature between C7 and T3. The patient tolerated the procedure well. The skin was cleansed. No band aids were needed. Patient will follow up in one month. Plan 1. Botulism toxin therapy was given today. A total of 300 units for chronic spasms was distributed. 2. The patient will follow up in 1 month. Thank you for allowing me to participate in this patient's care and for your continued support. TR: SONAM JG#: [id number] [Electronically Signed on 01.05.2013 04:03 PM] Diana Garcia MD </br> 12/29/2012 [Electronically Signed on 01.05.2013 04:03 PM] Diana Garcia MD [facility] Office/Clinic Notes Office/Clinic Notes [facility] [address] [facility], [place] [address] [address] [place] [address] PATIENT: WINIFRED CHRISTIAN MR #: [id number] PCP: None, Stated REFERRING PHYSICIAN: Self, Referral : 1975 DATE SEEN: 10/05/2012 Chief Complaint Winifred is being seen today for follow up with pain issues and medication management. History of Present Illness The patient is a 37-year-old white female who comes today with chronic myofascial pain of the cervical and upper back musculature. She has had 3 surgeries to the cervical spine for degenerative disc disease. Today, she states that her pain is constant radiating up to the back of her head. She is currently on Lortab 10/325 one to two tablets every 4 to 6 hours with a maximum of 6 daily. She is also taking Soma 350 mg one tab three times a day, and Neurontin 300 mg one tab three times a day for neuropathic pain. Today after examining the patient, I did offer her a steroid injection to the bilateral splenius capitis and bilateral trapezius. She is agreeable to that plan. I did tell the patient I would like to see if we could get pre approval for botulism toxin therapy to these areas. She is agreeable to a trial. Pain Assessment Cognitive Status: Independent, decisions consistent/reasonable Intensity: 8 Location: Head Laterality: Bilateral Scale Type: 0-10 Pain scale Time Pattern: Chronic, Constant Onset: Gradual Quality: Burning, Throbbing, Tightness Radiating: Bilateral Radiation Location: Neck, Shoulder Associated Symptoms: Unable to participate in physical activity, Unable to sleep, High B/P Aggravating Factors: None Alleviating Factors: Rest, Medications, Other: injections, botox Interventions: Medications, Rest, Other: injections, botox Review of Systems HEENT: Drainage, Nasal congestion, Neck pain, Neck stiffness Musculoskeletal: Back Pain, Muscle or joint pain, Stiffness Neurological: Numbness, Tingling Comment: right hand Psychiatric: Memory loss, Nervousness Pertinent negative for the following system(s): Constitutional, Respiratory, Cardiovascular, GI/, Integumentary, Hematologic, Endocrine Allergies Seasonale Current Medications Abilify 10 mg oral tablet (aripiprazole), 1 Tab, Daily aspirin 81 mg oral enteric coated tablet (aspirin), 1 Tab, Daily, Comment: 2 tabs po daily Celexa 40 mg oral tablet (citalopram), 1 Tab, Daily gabapentin 300 mg oral capsule (gabapentin), 300 mg, 3 times a day Lidoderm (lidocaine topical), Every 24 hours Maxalt-OCEANOGRAPHER ASSISTANT 10 mg oral tablet, disintegrating (rizatriptan), 10 mg, Every 24 hours, Comment: Takes as needed for Migraine. Niaspan ER 1000 mg oral tablet, extended release (niacin), 1 Tab, At bedtime Ney 10 mg-325 mg oral tablet (acetaminophen-hydrocodone), 1 Tab, PRN, Every 4 hours Premarin 0.9 mg oral tablet (conjugated estrogens), 1 Tab, Daily Singulair 10 mg oral tablet (montelukast), 1 Tab, Every evening Soma 350 mg oral tablet (carisoprodol), 350 mg, 4 times a day Problems and Past Medical History Active Back pain Cervical myofascial pain syndrome Intractable Chronic Migraine without Aura with Status Migrainosus Muscle spasms of neck Nausea and Vomiting Neuropathic pain Family History Neurological Past Medical History Neurological, Other Medical History: Mother, Father, COPD, HEP C, CANCER Oncologic Past Medical History Oncologic, Other Medical History: Father, CANCER UNKNOWN WHAT KIND Procedure History Hysterectomy - vaginal * tonsillectomy Hernia repair x3 Lower Back Neck Surgery x3 Social History Alcohol Use: Current Alcohol Type: Wine Alcohol Frequency: Other: occ. Caffeine Use: Current Caffeine Type: Soda Caffeine Frequency: Other: occ. Current Tobacco Usage: Denies Recreational Drug Use: Denies Physical Examination TEMP BP Pulse RR MAP O2 Sat 36.9 121/107 18 111.67 Apical Heart Rate: 132 bpm Blood Pressure Location: Left arm Oxygen Therapy: Room air Weight Height BMI BSA 84.4 kg (186.07 lbs) 157.0 cm 34.2 kg/m2 1.9185 m2 Scale: Standing digital Patient is a morbidly obese 37-year-old white female sitting on the exam table. She does not appear to be in any distress. Neurological: Patient is alert and oriented x4. Cranial nerves II-XII are grossly intact. Psychological: Patient appears to have the appropriate mood and affect. Respiratory: Clear to auscultation bilaterally. No wheezes, rhonchi, rales, or crackles. Cardiovascular: S1, S2, regular rate and rhythm. No murmurs, rubs, or gallops. Abdomen: Soft, nontender, bowel sounds are present. Musculoskeletal: Patient moves all extremities without difficulty. Regarding her neck exam, patient has severe limitations of flexion, extension, and side to side rotation of the cervical spine. She also has severe pain on palpation of the bilateral splenius capitis and bilateral trapezius. Extremities: No cyanosis or edema. Skin: Warm and dry without rashes or lesions. Impression 1. Muscle spasms of neck (728.85) 2. Cervical myofascial pain syndrome (729.1) 3. Back pain (724.5) 4. Intractable Chronic Migraine without Aura with Status Migrainosus (346.73) Procedure Trigger point injection to the bilateral splenius capitis and bilateral trapezius. The area of greatest tenderness was palpated on the bilateral splenius capitis and bilateral trapezius and marked on the skin. The skin was cleansed with Betadine. A 27 gauge needle was used to inject 1 mL of Kenalog (40 mg) diluted with 2 mL of 1% lidocaine into the right splenius capitis. Attention was turned to the left splenius capitis. A 27 gauge needle was used to inject 1 mL of Kenalog (40 mg) diluted with 2 mL of 1% lidocaine into the left splenius capitis. Attention was turned to the right trapezius. A 27 gauge needle was used to inject 1 mL of Kenalog (40 mg) diluted with 2 mL of 1% lidocaine into the right trapezius. Attention was turned to the left trapezius. A 27 gauge needle was used to inject 1 mL of Kenalog (40 mg) diluted with 2 mL of 1% lidocaine into the left trapezius. The patient tolerated the procedure well. The skin was cleansed and and ice pack was offered for her pain. Plan Medication changes this visit: Refill Ney 10 mg-325 mg oral tablet, 1 Tab, PRN, Q4H, Quantity: 180, Refills: 3 Soma 350 mg oral tablet, 350 mg, QID, Quantity: 120, Refills: 3 gabapentin 300 mg oral capsule, 300 mg, TID, Quantity: 270, Refills: 3 Orders this visit: Trigger Point Inj 3 Or More Muscles -Clinic Botox 400 units Injection -Request triamcinolone, 80 mg, X 1 DOSE triamcinolone, 80 mg, X 1 DOSE 1. Patient was given trigger point injections to the bilateral splenius capitis and bilateral trapezius as stated above. 2. Patient was given refills on Lortab and Soma today. 3. We will try to get pre approval for botulism toxin injections for chronic spasticity. Patient is tentatively scheduled for next month for those injections. Thank you for allowing me to participate in this patient's care and for your continued support. TR: CLINEC JG#: [id number] [Electronically Signed on 10.24.2012 10:06 AM] Diana Garcia MD </br> 10/07/2012 [Electronically Signed on 10.24.2012 10:06 AM] Diana Garcia MD [facility] Procedure Reports Procedure Reports [address] [id number] PATIENT: WINIFRED CHRISTIAN MR #: [id number] PCP: None, Stated REFERRING PHYSICIAN: Self, Referral : 1975 DATE SEEN: 10/06/2012 History of Present Illness Patient is a 37-year-old white female who was in the office yesterday for trigger point injections x4 to the bilateral splenius capitis and bilateral trapezius. Patient states that she has had an increase in pain and intractable nausea during her evening last night. She is driving back to [place], [place] , today and asks for medication for nausea. Procedure Injection of Phenergan. The right hip was cleansed and 25 mg of Phenergan was injected into the right gluteal muscle. The patient tolerated the procedure well. Plan 1. Patient will return on her next scheduled visit for botulism toxin injection for chronic spasms to the neck and upper back. Thank you for allowing me to participate in this patient's care and for your continued support. TR: SONAM JG#: [id number] [Electronically Signed on 10.13.2012 04:35 PM] Diana Garcia MD </br> 10/06/2012 [Electronically Signed on 10.13.2012 04:35 PM] Diana Garcia MD [facility] Amb Nurs Intake Event Amb Nurs Intake Event 2012 [facility] Office/Clinic Notes Office/Clinic Notes This nurse received and Dr. Garcia notified of Winifred needing to go to Emergency Room 3 times since last clinical visit, documentation provided. 10/06/2012 [facility] Ambulatory Depart Summary Ambulatory Depart Summary [address] [place] [place] [id number] PERSON INFORMATION Name WINIFRED CHRISTIAN Age 37 Years 1975 Sex Female Language Costa [place]ican PCP None, Stated Marital Status Legally Time Zone Visit Id Visit Reason Follow Up/Medication Specialty Enc Type [facility] Med Service OUTPT-Outpatient/Hospital Referred by Track Group Clinic Discharge Process Discharge Tracking Id Checkout Checkin Acuity Dispo Type Arrival 10/05/2012 1:21 PM Reg Status LOS Address: [address] [place] [address] PHYS DOC NOTES PROVIDER INFORMATION VITALS INFORMATION Height: 5ft 1.8in Weight: 186.07 lbs (BMI: 34.2) Temp: 98.4 F Heart Rate: 132 Respiratory: 18 O2 Sat: BP: 121/107 LOCATION INFORMATION Arrival Nurse Unit Room Bed ORDERS INFORMATION Start Time Order Type Status Stop Time Provider 10/05/2012 2:02 PM Botox 400 units Injection -Request Patient Care -Request Ordered 10/05/2012 2:02 PM Diana Garcia MD MEDICAL INFORMATION Allergy Info: Seasonale HOME MEDICATIONS Abilify 10 mg oral tablet 1 Tab, Oral, Daily aspirin 81 mg oral enteric coated tablet 1 Tab, Oral, Daily, 2 tabs po daily Celexa 40 mg oral tablet 1 Tab, Oral, Daily gabapentin 300 mg oral capsule 300 mg, Oral, 3 times a day, 3 Refills, Printed Lidoderm , Topical, Every 24 hours Maxalt-OCEANOGRAPHER ASSISTANT 10 mg oral tablet, disintegrating 10 mg, Oral, Every 24 hours, Takes as needed for Migraine. Niaspan ER 1000 mg oral tablet, extended release 1 Tab, Oral, At bedtime Ney 10 mg-325 mg oral tablet 1 Tab, Oral, Every 4 hours, as needed, for pain, 3 Refills, Max of 6 daily, Printed Premarin 0.9 mg oral tablet 1 Tab, Oral, Daily Singulair 10 mg oral tablet 1 Tab, Oral, Every evening Soma 350 mg oral tablet 350 mg, Oral, 4 times a day, 3 Refills, Printed DISCHARGE INFORMATION Discharge Disposition: Discharge Location: PATIENT EDUCATION INFORMATION Instructions: Medication Guide for Botox - Teaching Bulletin (CUSTOM) Follow up: With: Address: When: Diana Garcia [address] [place] [address] [facility] (1) 10/27/2012 15:00:00 Comments: DIAGNOSIS Muscle spasms of neck; Back pain; Cervical myofascial pain syndrome 10/05/2012 [facility] Amb Nurs Intake Event Amb Nurs Intake Event 2012 [facility] Office/Clinic Notes Office/Clinic Notes This nurse called [facility], spoke to Nicole, per Dr. Garcia, read back and verified, "Ok to refill this Ney early this time only." Nicole showed understanding and was appreciative of call. This nurse then called and left message on phone mail for Winifred, notifying her that Ney would be filled early this time only and that Dr. Garcia needed clinical documentation from Dr. Miner after seen. 08/04/2012 [facility] Office/Clinic Notes Office/Clinic Notes This nurse called in script for refill of Soma, had called [facility], it was ok'd and to have pharmacy re-send for refill, message left on phone mail of [facility] at [facility]. 07/14/2012 [facility] Office/Clinic Notes Office/Clinic Notes [facility] [address] [address] [address] [place] [address] PATIENT: WINIFRED CHRISTIAN MR #: [id number] PCP: None Stated REFERRING PHYSICIAN: Self Referral : 1975 DATE SEEN: 06/13/2012 Chief Complaint Patient is here today for follow up appointment and injection. History of Present Illness The patient is a 37-year-old white female with chronic migraine, chronic myofascial pain, and chronic neck pain. The patient's last visit to the rehab clinic was 03/14/2012. At that time, the patient was using a Fentanyl 12 mcg 1 patch every 72 hours with Lortab 10/325 mg 1 to 2 tablets every 4 to 6 hours with maximum of 6 daily. She is also taking Soma 350 mg 1 tablet three times a day for spasms. Additionally, she takes Neurontin 300 mg 1 tablet three times a day for the neuropathic component of pain. Today, she reports increased myofascial pain in the lower trapezius and upper rhomboids bilaterally. Regarding her chronic migraines, the patient is doing well. She has only had 2 to 3 severe migraines since her last botulinum toxin therapy. She is due for botulinum toxin protocol today. Pain Assessment Cognitive Status: Independent, decisions consistent/reasonable Intensity: 7 Location: Neck Allergies Seasonale Current Medications Abilify 10 mg oral tablet (aripiprazole), 1 Tab, Daily aspirin 81 mg oral enteric coated tablet (aspirin), 1 Tab, Daily, Comment: 2 tabs po daily Celexa 40 mg oral tablet (citalopram), 1 Tab, Daily fentanyl 1200 mcg buccal film (fentanyl), Once gabapentin 300 mg oral capsule (gabapentin), 300 mg, 3 times a day Lidoderm (lidocaine topical), Every 24 hours Maxalt-OCEANOGRAPHER ASSISTANT 10 mg oral tablet, disintegrating (rizatriptan), 10 mg, Every 24 hours, Comment: Takes as needed for Migraine. Niaspan ER 1000 mg oral tablet, extended release (niacin), 1 Tab, At bedtime Ney 10 mg-325 mg oral tablet (acetaminophen-hydrocodone), 1 Tab, PRN, Every 4 hours Premarin 0.9 mg oral tablet (conjugated estrogens), 1 Tab, Daily Singulair 10 mg oral tablet (montelukast), 1 Tab, Every evening Soma 350 mg oral tablet (carisoprodol), 350 mg, 4 times a day Problems and Past Medical History Active Back pain Cervical myofascial pain syndrome Intractable Chronic Migraine without Aura with Status Migrainosus Muscle spasms of neck Neuropathic pain Family History Neurological Past Medical History Neurological, Other Medical History: Mother, Father, COPD, HEP C, CANCER Oncologic Past Medical History Oncologic, Other Medical History: Father, CANCER UNKNOWN WHAT KIND Procedure History Hysterectomy - vaginal * tonsillectomy Hernia repair x3 Lower Back Neck Surgery x3 Social History Alcohol Use: Current Alcohol Type: Wine Alcohol Frequency: Other: occ. Caffeine Use: Current Caffeine Type: Soda Caffeine Frequency: Other: occ. Current Tobacco Usage: Denies Recreational Drug Use: Denies Physical Examination TEMP BP Pulse RR MAP O2 Sat 36.3126/860387999.67 Blood Pressure Location: Right arm Oxygen Therapy: Room air Weight Height BMI BSA 87.6 kg (193.12 lbs)157.0 cm35.5 kg/m21.9546 m2 The patient is a 37-year-old white female sitting on the exam table. She does not appear to be in any distress. Neurological: Patient is alert and oriented x4. Cranial nerves II-XII are grossly intact. Psychological: Patient appears to have the appropriate mood and affect. Respiratory: Clear to auscultation bilaterally. No wheezes, rhonchi, rales, or crackles. Cardiovascular: S1, S2, regular rate and rhythm. No murmurs, rubs, or gallops. Abdomen: Soft, nontender, bowel sounds are present. Musculoskeletal: Patient moves all extremities without difficulty. Regarding her neck exam, the patient continues to have limited mobility in flexion, extension, side to side rotation. She also complains of severe myofascial pain in the lower trapezium and rhomboid majors bilaterally. Extremities: No cyanosis or edema. Skin: Warm and dry without rashes or lesions. Impression Cervical myofascial pain syndrome (729.1) Intractable Chronic Migraine without Aura with Status Migrainosus (346.73) Muscle spasms of neck (728.85) Neuropathic pain (729.2) Chronic mid back pain (724.5) Procedure Trigger point injection to the bilateral trapezius and bilateral rhomboid major. The bilateral trapezius and bilateral rhomboid major was palpated and marked at the greatest point of tenderness. The skin was cleansed with Betadine prep. A 27-gauge needle was used to inject 1 mL of Kenalog 40 mg diluted with 2 mL of 1 % lidocaine into the right trapezius and right rhomboid major. The patient tolerated the procedure well. The skin was cleansed and a Band-Aid was placed at the injection site. Attention was turned to the left trapezius and left rhomboid major. The skin was cleansed with Betadine prep. A 27-gauge needle was used to inject 1 mL of Kenalog 40 mg diluted with 2 mL of 1% lidocaine into the left trapezius and left rhomboid major. A total of 4 muscles was treated. A total of 2 mL of Kenalog 80 mg and a total of 4 mL of 1% lidocaine was used for the procedure. The patient was offered an ice pack for her comfort. Botulinum Toxin Procedure Informed consent signed by patient Most common side effects: Neck pain, headache, eyelid ptosis, migraine, muscular weakness, musculoskeletal stiffness, bronchitis, injection site pain, musculoskeletal pain, myalgia, facial paresis, hypertension, and muscle spasms. Most serious side effects/risks: Anaphylaxis, dysphagia, pneumonia, arrhythmia, myocardial infarction, and in some cases, spontaneous . Confirmed: Patient, procedure, side, site, and safety procedures followed. Performed by: Diana Garcia MD. Preparation: No contraindications noted to Botox, possible medications prior to procedure Emla cream 2.5%/2.5% - 2g topically prior to procedure, Tylenol, sterile preparation of site with alcohol. Procedure performed: Indication: Chronic Migraine Headaches Medication: Onabotulinum toxin A 2.5 ml/100 units (Botulinum Toxin 5 units per 0.1mL, 200 units prepared, 155 units used, 45 units of waste) Location: Muscles/Sites Injected A - Bilateral Refinery Operator Helper Crude Unit - 10 units divided in 2 sites B - Midline Procerus - 5 units in 1 site C - Bilateral Frontalis - 20 units divided in 4 sites D - Bilateral Temporalis - 40 units divided in 8 sites E - Bilateral Occipitalis - 30 units divided in 6 sites F - Bilateral Cervical Paraspinals - 20 units divided in 4 sites G - Upper Bilateral Trapezius - 30 units divided in 6 sites H - The overage of botulism toxin was injected into the upper trapezius for spasm management. Procedure tolerated: Well. Complications: None. Plan 1. The patient did receive trigger point injections to the bilateral trapezius and bilateral rhomboid major as above. 2. The patient did receive botulinum toxin protocol for chronic migraine as above. The patient was given refill for Lortab, Neurontin and Soma today. We will discontinue fentanyl 12 mcg 1 patch every 72 hours. 3. The patient will follow up in 4 months. 4. The patient was encouraged to continue her stretching program. Thank you for your continued support. TR: TAMIKA DR: 06/13/2012 17:00 DE: 06/14/2012 04:51 CR: 06/20/2012 15:21 [facility] JOB#: [id number] [Electronically Signed on 06.29.2012 06:07 PM] Diana Garcia MD </br> 06/20/2012 [Electronically Signed on 06.29.2012 06:07 PM] Diana Garcia MD [facility] Ambulatory Depart Summary Ambulatory Depart Summary <%UDTHART_CLINIC_HEADER_UDT%>[address] [address] <%END%> PERSON INFORMATION Name <%NAME%>WINIFRED CHRISTIAN<%END%> Age <%AGE%> 37 Years<%END%> <%%>1975<%END%> Sex <%GENDER%>Female<%END%> Language <%LANGUAGE%>[place]<%END%> PCP <%PCP%>None, Stated<%END%> Marital Status <%MARITALSTAT%><%END%> Phone <%PHONE%> <%END%> Time Zone <%TIMEZONE%><%END%> MRN <%ALIASPMRN%>[id number]<%END%> Visit Id <%ALIASEVISITID%><%END%> Acct# <%ALIASEFIN NBR%>[id number]<%END%> Visit Reason <%RFV%>Folllow Up<%END%> Specialty <%SPECIALTY%><%END%> Enc Type <%ENCNTRTYPE%>[facility]<%END%> Med Service <%MEDSERVICE%>OUTPT-Outpatient/Hospital<%END%> Referred by <%REFERREDBY%><%END%> Track Group <%TRACKGROUP%>Clinic Discharge Process<%END%> Discharge <%DISCHDTTM%><%END%> Tracking Id <%TRACKINGID%><%END%> Checkout <%CHECKOUTDTTM%><%END%> Checkin <%CHECKINDTTM%><%END%> Acuity <%ACUITY%><%END%> Dispo Type <%DISDISP%><%END%> Arrival <%ARRIVALDTTM%>06/13/2012 1:33 PM<%END%> Reg Status <%REGSTATUS%><%END%> LOS <%LOSTRACK%><%END%> Address: <%ADDRESS%>[address] [facility] [address]<%END%> PHYS DOC NOTES<%PHYDOC%><%END%> PROVIDER INFORMATION <%PROVROLETBL%><%END%>VITALS INFORMATION <%UDTHART_DEPART_CLIN_VITALS%>Height: 5ft 1.8in Weight: 193.12 lbs (BMI: 35.5) Temp: 97.3 F Heart Rate: 109 Respiratory: 16 O2 Sat: BP: 126/79 <%END%>LOCATION INFORMATION <%LOCTBL%>Arrival Nurse Unit Room Bed <%END%>ORDERS INFORMATION <%ORDNRESTBL%>Start Time Order Type Status Stop Time Provider 06/14/2012 9:28 AM Botox 200 Injection Careset -Clinic Clinic Careset Completed 06/14/2012 9:32 AM Diana Garcia MD 06/13/2012 4:00 PM Botox Injection Facial Muscle(s) Bilateral -Clinic Patient Care -Clinic Completed 06/14/2012 9:29 AM Diana Garcia MD 06/13/2012 4:00 PM Botox 200 Units -Clinic Clinic Charge Completed 06/14/2012 9:30 AM Diana Garcia MD 06/13/2012 4:00 PM Botox Medication Guide Given to Patient -Clinic Patient Care -Clinic Completed 06/14/2012 9:29 AM Diana Garcia MD 06/14/2012 9:28 AM Kenalog 40 mg Careset -Clinic Clinic Careset Completed 06/14/2012 9:53 AM Diana Garcia MD 06/13/2012 4:00 PM Kenalog 40 mg -Clinic Clinic Charge Completed 06/14/2012 9:35 AM Diana Garcia MD 06/13/2012 4:00 PM Admin SubQ or IM Injection -Clinic Clinic Charge Completed 06/14/2012 9:29 AM Diana Garcia MD 06/14/2012 9:28 AM Trigger Point INJ Careset -Clinic Clinic Careset Completed 06/14/2012 9:29 AM Diana Garcia MD 06/13/2012 4:00 PM Trigger Point Inj 3 Or More Muscles -Clinic Patient Care -Clinic Completed 06/14/2012 9:29 AM Diana Garcia MD 06/13/2012 4:00 PM Follow Up 4 Months- Request Patient Care -Request Ordered 06/13/2012 4:00 PM Diana Garcia MD 06/13/2012 4:00 PM Nurse PBB Level 4 (79-14) - 28725 Evaluation and Management Completed 06/13/2012 4:00 PM Diana Garcia MD 06/13/2012 3:54 PM Office Visit Level 5 Est - 02595 Evaluation and Management Completed 06/13/2012 3:54 PM Diana Garcia MD <%END%>MEDICAL INFORMATION Allergy Info: <%ALLERGY%>Seasonale<%END%> <%UDTHART_PEDS_VIS_HEAR_TESTING%><%END%>HOME MEDICATIONS<%UDTHART_DEPART_HOME _MEDS%>Abilify 10 mg oral tablet 1 Tab, Oral, Daily aspirin 81 mg oral enteric coated tablet 1 Tab, Oral, Daily, 2 tabs po daily Celexa 40 mg oral tablet 1 Tab, Oral, Daily fentanyl 1200 mcg buccal film , Buccal, Once, 1 patch every three days gabapentin 300 mg oral capsule 300 mg, 1 Cap, Oral, 3 times a day, 3 Refills, Printed Lidoderm , Topical, Every 24 hours Maxalt-OCEANOGRAPHER ASSISTANT 10 mg oral tablet, disintegrating 10 mg, 1 Tab, Oral, Every 24 hours , Takes as needed for Migraine. Niaspan ER 1000 mg oral tablet, extended release 1 Tab, Oral, At bedtime Ney 10 mg-325 mg oral tablet 1 Tab, Oral, Every 4 hours, as needed, for pain , 3 Refills, Max of 6 daily, Printed Premarin 0.9 mg oral tablet 1 Tab, Oral, Daily Singulair 10 mg oral tablet 1 Tab, Oral, Every evening Soma 350 mg oral tablet 350 mg, 1 Tab, Oral, 4 times a day, 3 Refills, Printed <%END%>DISCHARGE INFORMATION Discharge Disposition: <%DISDISP%><%END%> Discharge Location: <%DISLOC%><%END%>PATIENT EDUCATION INFORMATION Instructions: <%DISINSTRUCT%><%END%> Follow up: <%FOLLOWUPTABLE%>With: Address: When: Diana Garcia [address] [address] [address] [place] [address] Business (1[employer] [facility] 10/06/2012 13:00:00 Comments: <%END%>DIAGNOSIS<%DIAGNOSIS%>Chronic mid back pain; Cervical myofascial pain syndrome; Intractable Chronic Migraine without Aura with Status Migrainosus ; Muscle spasms of neck; Neuropathic pain<%END%> 06/14/2012 [facility] Amb Nurs Intake Event Amb Nurs Intake Event 06/13/2012 [facility] Office/ Clinic Notes Office/Clinic Notes [address] [place] [address] [address] [place] [phone] IWYCOBL: WINIFRED CHRISTIAN R #: [id number] #:[id number]: None StatedREFERRING PHYSICIAN: Self ReferralDOB: 1975DATE SEEN: 03/14/2012Chief ComplaintDena is here today for follow up to neck pain.Additional Information: Winifred would like to discuss and injections Botox and trigger point.History of Present IllnessPatient is a 37-year-old white female who comes today with chronic cervical pain status post 3 cervical surgeries. She also has severe myofascial pain of the cervical musculature and upper back. 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 She states that she has been using her upper body quite a bit lately. She is currently on Fentanyl 12 mcg one patch every 72 hours with Lortab 10/325 mg one to two tablets every 4 to 6 hours with a maximum of 6 daily. She also takes Soma 350 mg one tablet 3 times a day for spasms. Additionally, she takes Neurontin 300 mg one tablet 3 times a day for the neuropathic component of pain. Patient is requesting a trigger point injection to the upper back today for symptomatic myofascial pain relief. She reports burning pain that exacerbates with movement.Pain AssessmentCognitive Status: Independent, decisions consistent/reasonableIntensity: 7Location: NeckQuality: Throbbing, Other: pinchReview of Systems HEENT: Neck painMusculoskeletal: Back Pain, Muscle or joint painPertinent negative for the following system(s): Constitutional, Respiratory, Cardiovascular, GI/, Integumentary, Neurological , Hematologic, Endocrine, PsychiatricAllergiesSeasonaleCurrent MedicationsAbilify 10 mg oral tablet (aripiprazole), 1 Tab, Dailyaspirin 81 mg oral enteric coated tablet (aspirin), 1 Tab, Daily, Comment: 2 tabs po dailycarisoprodol 350 mg oral tablet (carisoprodol), 350 mg 1 Tab, 4 times a daycarisoprodol 350 mg oral tablet (carisoprodol), 350 mg 1 Tab, 4 times a dayCelexa 40 mg oral tablet (citalopram), 1 Tab, DailyDuragesic-12 transdermal film, extended release (fentanyl), 1 Patch, Every 72 hoursgabapentin 300 mg oral capsule (gabapentin), 300 mg 1 Cap, 3 times a dayLidoderm (lidocaine topical), Every 24 hoursMaxalt-OCEANOGRAPHER ASSISTANT 10 mg oral tablet, disintegrating ( rizatriptan), 10 mg 1 Tab, Every 24 hours, Comment: Takes as needed for Migraine.Niaspan ER 1000 mg oral tablet, extended release (niacin), 1 Tab, At bedtimeNorco 10 mg-325 mg oral tablet (acetaminophen-hydrocodone), 1 Tab, PRN, Every 4 hoursPremarin 0.9 mg oral tablet (conjugated estrogens), 1 Tab, DailySingulair 10 mg oral tablet (montelukast), 1 Tab, Every eveningProblems and Past Medical HistoryActiveBack painCervical myofascial pain syndromeIntractable Chronic Migraine without Aura with Status MigrainosusMuscle spasms of neckNeuropathic painFamily HistoryNeurological Past Medical HistoryNeurological, Other Medical History: Mother, Father, COPD, HEP C, CANCEROncologic Past Medical HistoryOncologic, Other Medical History: Father, CANCER UNKNOWN WHAT KINDProcedure HistoryHysterectomy - vaginal * tonsillectomyHernia repair h5Cbxie BackRick Surgery h7Nngjmw HistoryAlcohol Use: CurrentAlcohol Type: WineAlcohol Frequency: Other: occ.Caffeine Use: CurrentCaffeine Type: SodaCaffeine Frequency: Other: occ.Current Tobacco Usage : DeniesRecreational Drug Use: DeniesPhysical ExaminationTEMP BP Pulse RR MAP O2 Sat 36.7120/061157333.33Blood Pressure Location: Right arm Oxygen Therapy: Room air Weight Height BMI BSA 157.0 cmEstimated Weight: 90 kg kg Patient is an obese 37-year-old white female sitting on the exam table. She does not appear to be in any distress. Neurological: Patient is alert and oriented x4. Cranial nerves II-XII are grossly intact.Psychological: Patient appears to have the appropriate mood and affect.Respiratory: Clear to auscultation bilaterally. No wheezes, rhonchi, rales, or crackles.Cardiovascular: S1, S2, regular rate and rhythm. No murmurs, rubs, or gallops.Abdomen: Soft, nontender, bowel sounds are present.Musculoskeletal: Patient moves all extremities without difficulty. Regarding her myofascial pain, she does report severe tenderness on the bilateral trapezius as well as the rhomboid major and rhomboid minor. Extremities: No cyanosis or edema.Skin : Warm and dry without rashes or lesions.ImpressionMuscle spasms of neck ( 728.85)Intractable Chronic Migraine without Aura with Status Migrainosus (346.73 )Back pain (724.5)Neuropathic pain (729.2)ProcedureTrigger point injection to the bilateral trapezius and bilateral splenius capitis.The area of greatest tenderness was palpated on the bilateral splenius followed by the bilateral trapezius. The skin was cleansed with Betadine. A 27 gauge needle was used to inject first the right splenius capitis followed by the left splenius capitis with 1 mL of Kenalog (40 mg) diluted with 2 mL of 1% lidocaine. Attention was turned to the bilateral trapezius. A 27 gauge needle was used to inject 1 mL of Kenalog (40 mg) diluted with 2 mL of 1% lidocaine into the bilateral trapezius. The patient tolerated the procedure well. The skin was cleansed and an ice pack was provided for the patient. A total of 2 mL of Kenalog (80 mg ) and 4 mL of 1% lidocaine was used for the procedure.PlanMedication changes this visit:RefillDuragesic-12 transdermal film, extended release, 1 Patch, Q72H , Quantity: 10, Refills: 0Orders this visit:Trigger Point Inj 3 Or More Muscles -Clinictriamcinolone, 40 mg, X 1 DOSE1. Regarding patient's cervical myofascial pain, we will continue Fentanyl patch 12 mcg one patch every 72 hours. Patient was given 2 months' supply. We will also continue Lortab 7.5/ 325 mg one to two tablets every 4 to 6 hours with a maximum of 6 tablets daily. 2. Regarding her spasms, she will continue Soma 350 mg one tablet 3 times a day.3. Regarding her neuropathic pain, she will continue gabapentin 300 mg three times a day.4. We will plan to pre certify Botox injections for chronic migraine headaches. Patient has done very well since she received the Botox injections. She has only had one intractable headache since her last visit to the clinic approximately 2 months ago. Thank you for allowing me to participate in this patient's care and for your continued support.TR: CLINECDD:03/14/2012 17:53 / 03/24/2012 14:09DT:03/22/2012 14:37 / 03/29/2012 12: 02TED#:[id number] / [id number] [Electronically Signed on 03.29.2012 02:21 PM] Diana Garcia MD </br> 03/21/2012 [ Electronically Signed on 03.29.2012 02:21 PM] Diana Garcia MD [facility] Ambulatory Depart Summary Ambulatory Depart Summary <%UDTHART_CLINIC_ HEADER_UDT%>[facility] [address] [place] [phone] <%END%> PERSON INFORMATION Name <%NAME%>WINIFRED CHRISTIAN<%END%> Age <%AGE%> 37 Years<%END%> <%%>1975<%END%> Sex <%GENDER%>Female<%END%> Language <%LANGUAGE%>[place]<%END%> PCP <%PCP%>None, Stated<%END%> Marital Status <%MARITALSTAT%><%END%> Phone <%PHONE%> <%END%> Time Zone <%TIMEZONE%><%END%> MRN <%ALIASPMRN%>[id number]<%END%> Visit Id <%ALIASEVISITID%><%END%> Acct# <%ALIASEFIN NBR%>[id number]<%END%> Visit Reason <%RFV%>2 MONTH FOLLOW UP<%END%> Specialty <%SPECIALTY%><%END%> Enc Type <%ENCNTRTYPE%>[facility]<%END%> Med Service <%MEDSERVICE%>OUTPT-Outpatient/Hospital<%END%> Referred by <%REFERREDBY%><%END%> Track Group <%TRACKGROUP%>Clinic Discharge Process<%END%> Discharge <%DISCHDTTM%><%END%> Tracking Id <%TRACKINGID%><%END%> Checkout <%CHECKOUTDTTM%><%END%> Checkin <%CHECKINDTTM%><%END%> Acuity <%ACUITY%><%END%> Dispo Type <%DISDISP%><%END%> Arrival <%ARRIVALDTTM%>03/14/2012 1:45 PM<%END%> Reg Status <%REGSTATUS%><%END%> LOS <%LOSTRACK%><%END%> Address: <%ADDRESS%>[address] [facility] [address]<%END%> PHYS DOC NOTES<%PHYDOC%><%END%> PROVIDER INFORMATION <%PROVROLETBL%><%END%>VITALS INFORMATION <%UDTHART_DEPART_CLIN_VITALS%>Height: 5ft 1.8in Weight: 203.93 lbs Temp: 98.1 F Heart Rate: 80 Respiratory: 18 O2 Sat: BP: 120/98 <%END%>LOCATION INFORMATION <%LOCTBL%>Arrival Nurse Unit Room Bed <%END%>ORDERS INFORMATION <%ORDNRESTBL%>Start Time Order Type Status Stop Time Provider 03/14/2012 3:17 PM Nurse PBB Level 3 (60-89) - 84628 Evaluation and Management Completed 03/14/2012 3:17 PM Diana Garcia MD <%END%>MEDICAL INFORMATION Allergy Info: <%ALLERGY%>Seasonale<%END%> <%UDTHART_PEDS_VIS_HEAR_TESTING%><%END%>HOME MEDICATIONS<%UDTHART_DEPART_HOME _MEDS%>Abilify 10 mg oral tablet 1 Tab, Oral, Daily aspirin 81 mg oral enteric coated tablet 1 Tab, Oral, Daily, 2 tabs po daily carisoprodol 350 mg oral tablet 350 mg, 1 Tab, Oral, 4 times a day, 1 Refills, Do not dispense refill untill 04/14/2012 carisoprodol 350 mg oral tablet 350 mg, 1 Tab, Oral, 4 times a day, Do not fill this rx untill 05/14/2012 Celexa 40 mg oral tablet 1 Tab, Oral, Daily Duragesic-12 transdermal film, extended release 1 Patch, Topical, Every 72 hours, Printed gabapentin 300 mg oral capsule 300 mg, 1 Cap, Oral, 3 times a day, 2 Refills Lidoderm , Topical, Every 24 hours Maxalt-OCEANOGRAPHER ASSISTANT 10 mg oral tablet, disintegrating 10 mg, 1 Tab, Oral, Every 24 hours , Takes as needed for Migraine. Niaspan ER 1000 mg oral tablet, extended release 1 Tab, Oral, At bedtime Ney 10 mg-325 mg oral tablet 1 Tab, Oral, Every 4 hours, as needed, for pain , 2 Refills, Maximum of 6 daily Premarin 0.9 mg oral tablet 1 Tab, Oral, Daily Singulair 10 mg oral tablet 1 Tab, Oral, Every evening<%END%>DISCHARGE INFORMATION Discharge Disposition: <%DISDISP%><%END%> Discharge Location: <% DISLOC%><%END%>PATIENT EDUCATION INFORMATION Instructions: <%DISINSTRUCT%> <%END%> Follow up: <%FOLLOWUPTABLE%>With: Address: When: Diana Garcia [address] [place] [address] Business (1) 06/22/2012 13:15:00 Comments: <%END%>DIAGNOSIS<%DIAGNOSIS%>Muscle spasms of neck; Intractable Chronic Migraine without Aura with Status Migrainosus; Back pain; Neuropathic pain<%END% > 03/14/2012 [facility] Amb Nurs Intake Event Amb Nurs Intake Event 03/14/2012 [facility] Ambulatory Depart Summary Ambulatory Depart Summary <%UDTHART_CLINIC_HEADER_UDT%>[facility] [address] [place] [address], [address] [place] [address] <%END%> PERSON INFORMATION Name <%NAME%>WINIFRED CHRISTIAN<%END%> Age <%AGE%> 36 Years<%END%> <%%>1975<%END%> Sex <%GENDER%>Female<%END%> Language <%LANGUAGE%>[place]<%END%> PCP <%PCP%>None, Stated<%END%> Marital Status <%MARITALSTAT%><%END%> Phone <%PHONE%> <%END%> Time Zone <%TIMEZONE%><%END%> MRN <%ALIASPMRN%>[id number]<%END%> Visit Id <%ALIASEVISITID%><%END%> Acct# <%ALIASEFIN NBR%>[id number]<%END%> Visit Reason <%RFV%>INJECTIONS<%END%> Specialty <%SPECIALTY%><%END%> Enc Type <%ENCNTRTYPE%>[facility]<%END%> Med Service <%MEDSERVICE%>OUTPT-Outpatient/Hospital<%END%> Referred by <%REFERREDBY%><%END%> Track Group <%TRACKGROUP%>Clinic Discharge Process<%END%> Discharge <%DISCHDTTM%><%END%> Tracking Id <%TRACKINGID%><%END%> Checkout <%CHECKOUTDTTM%><%END%> Checkin <%CHECKINDTTM%><%END%> Acuity <%ACUITY%><%END%> Dispo Type <%DISDISP%><%END%> Arrival <%ARRIVALDTTM%>01/14/2012 1:42 PM<%END%> Reg Status <%REGSTATUS%><%END%> LOS <%LOSTRACK%><%END%> Address: <%ADDRESS%>[address] [facility] [address]<%END%> PHYS DOC NOTES<%PHYDOC%><%END%> PROVIDER INFORMATION <%PROVROLETBL%><%END%>VITALS INFORMATION <%UDTHART_DEPART_CLIN_VITALS%>Height: 5ft 1.8in Weight: 203.93 lbs (BMI: 37.5) Temp: 97.9 F Heart Rate: 80 Respiratory: 22 O2 Sat: BP: 112/94 <%END%>LOCATION INFORMATION <%LOCTBL%>Arrival Nurse Unit Room Bed <%END%>ORDERS INFORMATION<%ORDNRESTBL%><%END%>MEDICAL INFORMATION Allergy Info: <%ALLERGY%>Seasonale<%END%><%UDTHART_PEDS_VIS_HEAR_ TESTING%><%END%>HOME MEDICATIONS<%UDTHART_DEPART_HOME_MEDS%>Abilify 10 mg oral tablet 1 Tab, Oral, Daily aspirin 81 mg oral enteric coated tablet 1 Tab, Oral, Daily, 2 tabs po daily Celexa 40 mg oral tablet 1 Tab, Oral, Daily Duragesic-12 transdermal film, extended release 1 Patch, Topical, Every 72 hours, Printed gabapentin 300 mg oral capsule 300 mg, 1 Cap, Oral, 3 times a day Lidoderm , Topical, Every 24 hours Lortab 10/500 oral tablet 1 Tab, Oral, Every 6 hours, 1 tab po 4 x daily. Maxalt-OCEANOGRAPHER ASSISTANT 10 mg oral tablet, disintegrating 10 mg, 1 Tab, Oral, Every 24 hours , Takes as needed for Migraine. Niaspan ER 1000 mg oral tablet, extended release 1 Tab, Oral, At bedtime Ney 10 mg-325 mg oral tablet 1 Tab, Oral, Every 4 hours, as needed, for pain , 2 Refills, Maximum of 6 daily OxyContin 10 mg oral tablet, extended release 10 mg, 1 Tab, Oral, Every 12 hours, Paper Script sent with patient, medication was filled at [facility] in [place], [place]. Premarin 0.9 mg oral tablet 1 Tab, Oral, Daily Singulair 10 mg oral tablet 1 Tab, Oral, Every evening Soma 350 mg oral tablet 1 Tab, Oral, Every 6 hours Soma 350 mg oral tablet 350 mg, 1 Tab, Oral, Every 6 hours Zofran 4 mg oral tablet 4 mg, 1 Tab, Oral, Every 6 hours, as needed, for Nausea , Printed<%END%>DISCHARGE INFORMATION Discharge Disposition: <%DISDISP%><% END%> Discharge Location: <%DISLOC%><%END%>PATIENT EDUCATION INFORMATION Instructions: <%DISINSTRUCT%>Back Safety: Sitting; Medication Guide for Botox - Teaching Bulletin (Custom)<%END%> Follow up: <%FOLLOWUPTABLE%>With: Address: When: Diana Garcia 03/17/2012 15:00:00 Comments: <%END%>DIAGNOSIS<%DIAGNOSIS%>Intractable Chronic Migraine without Aura with Status Migrainosus; Cervical myofascial pain syndrome; Back pain<%END%> 01/14/2012 [facility] Prescription Pickup Prescription Pickup 01/14/2012 [facility] Amb Nurs Intake Event Amb Nurs Intake Event 01/14/2012 [facility] Office/Clinic Notes Office/Clinic Notes [address], [address]. [place] [phone] FJAVDYR: WINIFRED CHRISTIAN R #: [id number]: None StatedREFERRING PHYSICIAN: Self ReferralDOB : 1975DATE SEEN: 01/14/2012Chief ComplaintDena is being seen today for Botox injections and steroid injections due to cervical and myofascial pain. History of Present IllnessPatient is a 36-year-old white female who comes today with complaints of intractable migraines as well as muscles spasms. Patient's last Botox injection was performed on 09/20/2011. Since that time, she did very well up until approximately 3 weeks ago when she started having intractable migraines again. She states that she had approximately 8 migraines in the last 2 weeks. Patient also has chronic neck pain. She did undergo another cervical spine fusion around the first part of November. Patient is currently using fentanyl patch 12 mcg one patch every 72 hours with Lortab 10/ 325 using one to two tablets every 4 to 6 hours with a maximum of 6 tablets daily. Patient also takes Soma 350 mg one tablet 3 times a day for spasms. Patient will be provided with refills today. Pain AssessmentCognitive Status : Independent, decisions consistent/reasonableIntensity: 8Location: Mid backComment: cervical pain/ headachesLaterality: BilateralScale Type: 0-10 Pain scaleTime Pattern: Chronic, ConstantOnset: GradualQuality: Burning, Sharp, Stabbing, TightnessRadiating: BilateralRadiation Location: Head, Neck, Upper backAssociated Symptoms: Nausea, Unable to participate in physical activity, Unable to sleep, High B/PAggravating Factors: MovementAlleviating Factors: Moist heat, Medications, Other: injections/ surgery on cervical several timesInterventions: Heat, Medications, Other: injections/ cervical surgeriesReview of Systems HEENT: Headache, Neck pain, Neck stiffnessMusculoskeletal: Back Pain, Muscle or joint pain, StiffnessHematologic : Ease of bruisingPsychiatric: Depression, Memory loss, NervousnessPertinent negative for the following system(s): Constitutional, Respiratory, Cardiovascular, GI/, Integumentary, Neurological, Endocrine AllergiesSeasonaleCurrent MedicationsAbilify 10 mg oral tablet (aripiprazole) , 1 Tab, Dailyaspirin 81 mg oral enteric coated tablet (aspirin), 1 Tab, Daily, Comment: 2 tabs po dailyCelexa 40 mg oral tablet (citalopram), 1 Tab, DailyDuragesic-12 transdermal film, extended release (fentanyl), 1 Patch, Every 72 hoursgabapentin 300 mg oral capsule (gabapentin), 300 mg 1 Cap, 3 times a dayLidoderm (lidocaine topical), Every 24 hoursLortab 10/500 oral tablet ( acetaminophen-hydrocodone), 1 Tab, Every 6 hours, Comment: 1 tab po 4 x daily.Maxalt-OCEANOGRAPHER ASSISTANT 10 mg oral tablet, disintegrating (rizatriptan), 10 mg 1 Tab, Every 24 hours, Comment: Takes as needed for Migraine.Niaspan ER 1000 mg oral tablet, extended release (niacin), 1 Tab, At bedtimeNorco 10 mg-325 mg oral tablet (acetaminophen-hydrocodone), 1 Tab, PRN, Every 4 hoursOxyContin 10 mg oral tablet, extended release (oxycodone), 10 mg 1 Tab, Every 12 hours, Comment : Paper Script sent with patient, [facility] [place] [place].Premarin 0.9 mg oral tablet (conjugated estrogens), 1 Tab, DailySingulair 10 mg oral tablet (montelukast), 1 Tab, Every eveningSoma 350 mg oral tablet (carisoprodol), 1 Tab, Every 6 hoursSoma 350 mg oral tablet ( carisoprodol), 350 mg 1 Tab, Every 6 hoursProblems and Past Medical HistoryActiveBack painCervical myofascial pain syndromeIntractable Chronic Migraine without Aura with Status MigrainosusMuscle spasms of neckNeuropathic painFamily HistoryNeurological Past Medical HistoryNeurological, Other Medical History: Mother, Father, COPD, HEP C, CANCEROncologic Past Medical HistoryOncologic, Other Medical History: Father, CANCER UNKNOWN WHAT KIND Procedure HistoryHysterectomy - vaginal *tonsillectomyHernia repair f1Gehnl BackNeck Surgery s5Cfeezl HistoryAlcohol Use: CurrentAlcohol Type: WineAlcohol Frequency: Other: occ.Caffeine Use: CurrentCaffeine Type: SodaCaffeine Frequency: Other: occ.Current Tobacco Usage: DeniesRecreational Drug Use: DeniesPhysical ExaminationTEMP BP Pulse RR MAP O2 Sat 36.6112/ [id number] Pressure Location: Left arm Oxygen Therapy: Room air Weight Height BMI BSA 92.5 kg (203.93 lbs)157.0 cm37.52.0085 l2Xwyhg: Standing digital Patient is an obese 36-year-old white female sitting on the exam table. She does not appear to be in any distress. However, she does appear to be uncomfortable secondary to her neck pain. Neurological: Patient is alert and oriented x4. Cranial nerves II-XII are grossly intact.Psychological: Patient appears to have the appropriate mood and affect.Respiratory: Clear to auscultation bilaterally. No wheezes, rhonchi, rales, or crackles.Cardiovascular: S1, S2, regular rate and rhythm. No murmurs , rubs, or gallops.Abdomen: Soft, nontender, bowel sounds are present.Musculoskeletal: Patient continues to have decreased range of motion regarding her neck on rotation from right to left. She also reports severe pain on palpation of the cervical paraspinal musculatures with radicular symptoms down extending to the inferior aspect of the scapula. Patient moves all extremities without difficulty.Extremities: No cyanosis or edema.Skin: Warm and dry without rashes or lesions.ImpressionIntractable Chronic Migraine without Aura with Status Migrainosus (346.73)Cervical myofascial pain syndrome ( 729.0)Back pain (724.5)Neuropathic pain (729.2)Muscle spasms of neck (728.85) ProcedureBotulism toxin injection for chronic intractable migraines.The temporalis, occipitalis musculature, levator scapula, splenius capitis, trapezius, and cervical paraspinal muscles were palpated and marked on the skin. A 27 gauge needle was used to inject 200 units of botulism toxin distributed throughout the musculature as above. The patient tolerated the procedure well. The skin was cleansed and patient was provided with an ice pack for her relief. PlanMedication changes this visit:NewDuragesic-12 transdermal film, extended release, 1 Patch, Q72H, Quantity: 10, Refills: 0Zofran 4 mg oral tablet, 4 mg=1 Tab, PRN, Q6H, Quantity: 10, Refills: 0 RefillDuragesic-12 transdermal film, extended release, 1 Patch, Q72H, Quantity: 10, Refills: 0Norco 10 mg-325 mg oral tablet, 1 Tab, PRN, Q4H, Quantity: 180, Refills: 2gabapentin 300 mg oral capsule, 300 mg=1 Cap, TID, Quantity: 270, Refills: 2StoppedLortab 10/500 oral tablet, 1 Tab, Q6H, Refills: 0, Comment: 1 tab po 4 x daily.OxyContin 10 mg oral tablet, extended release, 10 mg=1 Tab, Q12H, Quantity: 60, Refills: 0, Comment: Paper Script sent with patient, medication was filled at [facility] in [place], [place].Soma 350 mg oral tablet, 350 mg=1 Tab, Q6H, Quantity: 90, Refills: 0Orders this visit:Botox Injection Cervical/Neck Muscle(s) -ClinicBotox Medication Guide Given to Patient - ClinicBotox 200 units Injection -RequestFollow Up 2 months -RequestBotox, 200 units, X 1 DOSEsodium chloride, 2 mL, X 1 DOSE1. Patient was given refills on Soma, gabapentin, Lortab, fentanyl patch, and she was also given Zofran 4 mg one tablet every 6 hours as needed for nausea. Patient will follow up in 2 months.2. Patient was encouraged to continue her stretching and strengthening program. TR:CLINECDD:01/14/2012 15:16DT:01/17/2012 12:40TED#:[id number] [Electronically Signed on 01.31.2012 09:35 AM] Diana Garcia MD </br> 01/14/2012 [ Electronically Signed on 01.31.2012 09:35 AM] Diana Garcia MD [facility] Amb Nurs Intake Event Amb Nurs Intake Event 11/23/2011 [facility] Office/Clinic Notes Office/Clinic Notes [address], [facility] [address] [place] [phone] Fax: CATIENT: WINIFRED CHRISTIAN [facility] #: [id number] #:[id number]: None StatedREFERRING PHYSICIAN: Self ReferralDOB: 1975DATE SEEN: 11/19/2011 Chief ComplaintChronic cervical and lumbar pain.History of Present IllnessPatient is a 36-year-old white female who comes today with chronic cervical and lumbar pain. She did have a recent cervical fusion approximately 5 weeks ago. On her last visit to the clinic which was 09/20/2011, Zulma Randolph MD, performed Botox injections for chronic migraine treatment. She states that she has only had one headache that she has had to go to the emergency room with since that time. She has had some headaches but definitely decreased in severity. For patient's chronic neck pain, she is having a Fentanyl patch 12 mcg one patch every 72 hours. She also takes Lortab 10/325 mg at four tablets a day; we did increase that to Lortab 10/325 mg six tablets daily. She is also taking Neurontin 300 mg three times a day for neuropathic pain and Soma 350 mg one tablet three times a day for spasms. We did have a conversation about her dismissal papers. I humbly apologized for the error at our clinic. Patient did get prescriptions from 2 different physicians over 3 days; however, that was due to me changing her prescription in a lower Tylenol dose, therefore it was the clinic's error that she received medication from 2 different doctors without advice from a physician. Therefore, the patient will remain underneath my care. No additional concerns today. Review of Systems All other systems were reviewed and found to be negative except as noted above in the HPI. AllergiesSeasonaleCurrent MedicationsAbilify 10 mg oral tablet (aripiprazole) , 1 Tab, Dailyaspirin 81 mg oral enteric coated tablet (aspirin), 1 Tab, Daily, Comment: 2 tabs po dailyCelexa 40 mg oral tablet (citalopram), 1 Tab, DailyLidoderm (lidocaine topical), Every 24 hoursLortab 10/500 oral tablet ( acetaminophen-hydrocodone), 1 Tab, Every 6 hours, Comment: 1 tab po 4 x daily.Maxalt-OCEANOGRAPHER ASSISTANT 10 mg oral tablet, disintegrating (rizatriptan), 10 mg 1 Tab, Every 24 hours, Comment: Takes as needed for Migraine.Neurontin 300 mg oral capsule (gabapentin), 300 mg 1 Cap, 3 times a dayNiaspan ER 1000 mg oral tablet , extended release (niacin), 1 Tab, At bedtimeOxyContin 10 mg oral tablet, extended release (oxycodone), 10 mg 1 Tab, Every 12 hours, Comment: Paper Script sent with patient, medication was filled at [facility] in [place], [place].Premarin 0.9 mg oral tablet (conjugated estrogens), 1 Tab, DailySingulair 10 mg oral tablet (montelukast), 1 Tab, Every eveningSoma 350 mg oral tablet ( carisoprodol), 1 Tab, Every 6 hoursProblems and Past Medical HistoryActiveBack painCervical myofascial pain syndromeIntractable Chronic Migraine without Aura with Status MigrainosusFamily HistoryNeurological Past Medical HistoryNeurological, Other Medical History: Mother, Father, COPD, HEP C , CANCEROncologic Past Medical HistoryOncologic, Other Medical History: Father, CANCER UNKNOWN WHAT KINDProcedure HistoryHysterectomy - vaginal * tonsillectomyHernia repair w8Sssud BackNeck Surgery c3Abjuhj HistoryAlcohol Use: CurrentAlcohol Type: WineAlcohol Frequency: Other: occ.Caffeine Use: CurrentCaffeine Type: SodaCaffeine Frequency: Other: occ.Current Tobacco Usage : DeniesRecreational Drug Use: DeniesPhysical ExaminationNo vital information found.Weight Height BMI BSA 157.0 cmEstimated Weight: 86 kg kg Patient is a 36-year-old white female sitting in the chair. She does not appear to be in any distress. Neurological: Patient is alert and oriented x4. Cranial nerves II-XII are grossly intact.Psychological: Patient appears to have the appropriate mood and affect. Of note, patient is wearing a hard cervical collar.Respiratory: Clear to auscultation bilaterally. No wheezes, rhonchi, rales, or crackles.Cardiovascular: S1, S2, regular rate and rhythm. No murmurs, rubs, or gallops.Abdomen: Soft, nontender, bowel sounds are present.Musculoskeletal: Patient does have full range of motion of the upper and lower extremities. Muscle strength is 5/5. I did not ask the patient for a cervical exam today.Skin: Warm and dry without rashes or lesions. ImpressionBack pain (724.5)Cervical myofascial pain syndrome (729.0)Intractable Chronic Migraine without Aura with Status Migrainosus (346.73)PlanMedication changes this visit:NewDuragesic-12 transdermal film, extended release, 1 Patch, Q72H, Quantity: 10, Refills: 0Norco 10 mg-325 mg oral tablet, 1 Tab, PRN, Q4H, Quantity: 180, Refills: 2Soma 350 mg oral tablet, 350 mg=1 Tab, Q6H, Quantity: 90, Refills: 0gabapentin 300 mg oral capsule, 300 mg=1 Cap, TID, Quantity: 270, Refills: 0ChangedSoma 350 mg oral tablet, 1 Tab, Q6H, Quantity: 90, Refills: 0 StoppedNeurontin 300 mg oral capsule, 300 mg=1 Cap, TID, Quantity: 90, Refills : 0Orders this visit:Botox 200 units Injection -RequestFollow Up 2 months - Request1. Patient was refilled on her Duragesic, Ney, Soma, and gabapentin. She has one refill on each drug. Patient will follow up in mid January for a 2 month follow up. At that time, we will consider another round of Botox for her migraine headaches as well as trigger point injections for the back if needed. Due to the patient's transportation difficulties, she will be going 4 months between the Botox treatment this time. TR:CLINECDD:2011 16:10DT:11/22/2011 16:25TED#:[id number] [Electronically Signed on 11.23.2011 11:40 AM] Diana Garcia MD </br> 11/19/2011 [ Electronically Signed on 11.23.2011 11:40 AM] Diana Garcia MD [facility] Ambulatory Depart Summary Ambulatory Depart Summary <%UDTHART_CLINIC_ HEADER_UDT%>[facility] [address] [place] [address], [address] [phone] <%END%> PERSON INFORMATION Name <%NAME%>WINIFRED CHRISTIAN<%END%> Age <%AGE%> 36 Years<%END%> <%%>1975<%END%> Sex <%GENDER%>Female<%END%> Language <%LANGUAGE%>[place]<%END%> PCP <%PCP%>None, Stated<%END%> Marital Status <%MARITALSTAT%><%END%> Phone <%PHONE%> <%END%> Time Zone <%TIMEZONE%><%END%> MRN <%ALIASPMRN%>[id number]<%END%> Visit Id <%ALIASEVISITID%><%END%> Acct# <%ALIASEFIN NBR%>[id number]<%END%> Visit Reason <%RFV%>FOLLOW UP<%END%> Specialty <%SPECIALTY%><%END%> Enc Type <%ENCNTRTYPE%>[facility]<%END%> Med Service <%MEDSERVICE%>OUTPT-Outpatient/Hospital<%END%> Referred by <%REFERREDBY%><%END%> Track Group <%TRACKGROUP%>Clinic Discharge Process<%END%> Discharge <%DISCHDTTM%><%END%> Tracking Id <%TRACKINGID%><%END%> Checkout <%CHECKOUTDTTM%><%END%> Checkin <%CHECKINDTTM%><%END%> Acuity <%ACUITY%><%END%> Dispo Type <%DISDISP%><%END%> Arrival <%ARRIVALDTTM%>11/19/2011 3:18 PM<%END%> Reg Status <%REGSTATUS%><%END%> LOS <%LOSTRACK%><%END%> Address: <%ADDRESS%>[address] [facility] [address]<%END%> PHYS DOC NOTES<%PHYDOC%><%END%> PROVIDER INFORMATION <%PROVROLETBL%><%END%>VITALS INFORMATION <%UDTHART_DEPART_CLIN_VITALS%>Height: 5ft 1.8in Weight: 202.60 lbs <%END%>LOCATION INFORMATION <%LOCTBL%>Arrival Nurse Unit Room Bed <%END%>ORDERS INFORMATION <%ORDNRESTBL%>Start Time Order Type Status Stop Time Provider 11/19/2011 3:21 PM Botox 200 units Injection -Request Patient Care -Request Ordered 11/19/2011 3:21 PM Diana Garcia MD 11/19/2011 3:50 PM Follow Up 2 months -Request Patient Care -Request Ordered 11/19/2011 3:50 PM Diana Garcia MD <%END%>MEDICAL INFORMATION Allergy Info: <%ALLERGY%>Seasonale<%END%> <%UDTHART_PEDS_VIS_HEAR_TESTING%><%END%>HOME MEDICATIONS<%UDTHART_DEPART_HOME _MEDS%>Abilify 10 mg oral tablet 1 Tab, Oral, Daily aspirin 81 mg oral enteric coated tablet 1 Tab, Oral, Daily, 2 tabs po daily Celexa 40 mg oral tablet 1 Tab, Oral, Daily Duragesic-12 transdermal film, extended release 1 Patch, Topical, Every 72 hours, Printed gabapentin 300 mg oral capsule 300 mg, 1 Cap, Oral, 3 times a day, Routed to: [facility] [address] Lidoderm , Topical, Every 24 hours Lortab 10/500 oral tablet 1 Tab, Oral, Every 6 hours, 1 tab po 4 x daily. Maxalt-OCEANOGRAPHER ASSISTANT 10 mg oral tablet, disintegrating 10 mg, 1 Tab, Oral, Every 24 hours , Takes as needed for Migraine. Niaspan ER 1000 mg oral tablet, extended release 1 Tab, Oral, At bedtime Ney 10 mg-325 mg oral tablet 1 Tab, Oral, Every 4 hours, as needed, for pain , 2 Refills, Maximum of 6 daily, Printed OxyContin 10 mg oral tablet, extended release 10 mg, 1 Tab, Oral, Every 12 hours, Paper Script sent with patient, medication was filled at [facility] in [place], [place]. Premarin 0.9 mg oral tablet 1 Tab, Oral, Daily Singulair 10 mg oral tablet 1 Tab, Oral, Every evening Soma 350 mg oral tablet 1 Tab, Oral, Every 6 hours Soma 350 mg oral tablet 350 mg, 1 Tab, Oral, Every 6 hours, Printed<%END%> DISCHARGE INFORMATION Discharge Disposition: <%DISDISP%><%END%> Discharge Location: <%DISLOC%><%END%>PATIENT EDUCATION INFORMATION Instructions: <%DISINSTRUCT%>BACK CARE TIPS; Caring for Your Back Throughout the Day<%END%> Follow up: <%FOLLOWUPTABLE%>With: Address: When: Diana Garcia 01/14/2012 14:30:00 Comments: <%END%>DIAGNOSIS<%DIAGNOSIS%>Back pain; Cervical myofascial pain syndrome; Intractable Chronic Migraine without Aura with Status Migrainosus<%END%> 11/19/2011 [facility] Procedure Reports Procedure Reports [address], [address] [phone] NWBIWKI: WINIFRED CHRISTIAN RMR #: [id number] #: [id number]: 1975DATE SEEN: 09/20/2011OTOX INJECTION PROCEDURE Identification of patient by nurse and physicianThe patient was identified by me as requested by Dr. Diana Garcia. Consent for procedureVital SignsPhysical ExaminationTEMP BP Pulse RR MAP O2 Sat 36.6138/[id number] Blood Pressure Location: Left arm Oxygen Therapy: Room air Weight Height BMI BSA 157.0 cmEstimated Weight: 86 kg kgMarking of side R/L and locationsShe was positioned on the examining table, seated, facing the wall and the following muscles were identified in view of her occipital migraine and pain in the cervical and suprascapular regions related to the migraine. She also indicated she has pain in both temporalis muscles also. Muscles to be injected were marked by me including both temporalis muscles, occipitalis, trapezius and also the portion of the trapezius lateral to the surgical site bilaterally. The procedure was explained. Time out was called. Dilution of BotoxBotox 200 units was diluted 100 units was diluted at the concentration of 10 units equivalent to 0.1 mL and 100 units diluted to 5 units 40.1 mL. Total Used/Units discardedA total of 200 units of Botox was injected. Muscles InjectedI was assisted by Dr. Diana Garcia and also by Lesly Thompson. The patient was again made comfortable and Botox was injected using the 5 units per 0.01 mL diluted Botox in the bilateral occipitalis muscles and the bilateral temporalis muscles were injected. The remaining amount of the diluted was used to inject the more proximal portion of both the trapezius muscles bilaterally. Following that the Botox that was diluted and a concentration of 10 units per 0.1 mL was then injected into the remaining aspects of the trapezius bilaterally. There were no complications. Following the injection patient was asked to chew gum in order to make sure to improve the Botox into the temporalis muscles. We did ask her to bend forward and back as much as possible in view of her fused neck. She was also made to move her shoulder and brace her shoulders to get the trapezius working. ComplicationsThere were no complications. Diagnosis/IndicationsImpression1. Migraine occipital and extending anteriorly to the temporalis bilateral. 2. Posterior cervical pain from migraine. 3. History of multiple fusion procedures of neck. Intractable Chronic Migraine without Aura with Status Migrainous (346.73)Cervical myofascial pain syndrome (729.0)Back pain (724.5)Orders this visit:Botox Injection Cervical/Neck Muscle(s) -ClinicBotox Injection Cervical/Neck Muscle(s ) -ClinicBotox Injection Facial Muscle(s) Bilateral -ClinicBotox Injection Facial Muscle(s) Bilateral -ClinicBotox Injection Facial Muscle(s) Bilateral - ClinicBotox Injection Hands/Feet - ClinicBotox Medication Guide Given to Patient -ClinicBotox Medication Guide Given to Patient -ClinicBotox Medication Guide Given to Patient -ClinicFollow Up 2 months -RequestBotox, 200 units, X 1 DOSEsodium chloride, 3 mL, X 1 DOSEPost Procedure Orders1. No restrictions to her movements. 2. If she does develop any swallowing issues they have to go to the emergency room. The form for advise to be given was also given. 3. A followup with Dr. Garcia in 6 weeks. Appointment made. 4. I was assisted by Dr. Garcia for the procedure and the procedure was done at her request. Procedure note dictated by Prabha Randolph M.D. TR:[id number]:09/20/2011 15: 52DT:09/21/2011 21:51TED#:[id number] [Electronically Signed on 09.22.2011 07:25 am] Zulma Randolph MD </br> 09/20/2011 [ Electronically Signed on 09.22.2011 07:25 am] Zulma Randolph MD [facility] Ambulatory Depart Summary Ambulatory Depart Summary <%UDTHART_CLINIC_ HEADER_UDT%>[facility] [address] [place] [address], [address] [place] [address] <%END%> PERSON INFORMATION Name <%NAME%>WINIFRED CHRISTIAN<%END%> Age <%AGE%> 36 Years<%END%> <%%>1975<%END%> Sex <%GENDER%>Female<%END%> Language <%LANGUAGE%>[place]<%END%> PCP <%PCP%>None, Stated<%END%> Marital Status <%MARITALSTAT%><%END%> Phone <%PHONE%> <%END%> Time Zone <%TIMEZONE%><%END%> MRN <%ALIASPMRN%>[id number]<%END%> Visit Id <%ALIASEVISITID%><%END%> Acct# <%ALIASEFIN NBR%>[id number]<%END%> Visit Reason <%RFV%>FOLLOW UP AFTER TRIGGER POINT<%END%> Specialty <%SPECIALTY%><%END%> Enc Type <%ENCNTRTYPE%>[facility]<%END%> Med Service <%MEDSERVICE%>OUTPT-Outpatient/Hospital<%END%> Referred by <%REFERREDBY%><%END%> Track Group <%TRACKGROUP%>Clinic Discharge Process<%END%> Discharge <%DISCHDTTM%><%END%> Tracking Id <%TRACKINGID%><%END%> Checkout <%CHECKOUTDTTM%><%END%> Checkin <%CHECKINDTTM%><%END%> Acuity <%ACUITY%><%END%> Dispo Type <%DISDISP%><%END%> Arrival <%ARRIVALDTTM%>09/20/2011 2:15 PM<%END%> Reg Status <%REGSTATUS%><%END%> LOS <%LOSTRACK%><%END%> Address: <%ADDRESS%>[address] [facility] [address]<%END%> PHYS DOC NOTES<%PHYDOC%><%END%> PROVIDER INFORMATION <%PROVROLETBL%><%END%>VITALS INFORMATION <%UDTHART_DEPART_CLIN_VITALS%>Height: 5ft 1.8in Weight: 202.60 lbs Temp: 97.9 F Heart Rate: 108 Respiratory: 20 O2 Sat: BP: 138/82 <%END%>LOCATION INFORMATION <%LOCTBL%>Arrival Nurse Unit Room Bed <%END%>ORDERS INFORMATION <%ORDNRESTBL%>Start Time Order Type Status Stop Time Provider 09/20/2011 3:40 PM Follow Up 2 months -Request Patient Care -Request Ordered 09/20/2011 3:40 PM Diana Garcia MD 09/20/2011 3:18 PM Botox 200 Injection Careset -Clinic Clinic Careset Ordered 09/20/2011 3:18 PM Zulma Randolph MD 09/20/2011 3:08 PM Botox Injection Facial Muscle(s) Bilateral -Clinic Patient Care -Clinic Ordered 09/20/2011 3:08 PM Zulma Randolph MD 09/20/2011 3:07 PM Botox Injection Cervical/Neck Muscle(s) -Clinic Patient Care -Clinic Ordered 09/20/2011 3:07 PM Zulma Randolph MD 09/20/2011 3:16 PM Botox Injection Hands/Feet - Clinic Patient Care -Clinic Ordered 09/20/2011 3:16 PM Zulma Randolph MD 09/20/2011 3:16 PM Botox 200 Units -Clinic Clinic Charge Ordered 09/20/2011 3:16 PM Zulma Randolph MD 09/20/2011 3:16 PM Botox Medication Guide Given to Patient -Clinic Patient Care -Clinic Ordered 09/20/2011 3:16 PM Zulma Randolph MD <%END%>MEDICAL INFORMATION Allergy Info: <%ALLERGY%>Seasonale<%END%> HOME MEDICATIONS<%UDTHART_DEPART_HOME_MEDS%>Abilify 10 mg oral tablet 1 Tab, Daily, 30 Tab, 0 Refills aspirin 81 mg oral enteric coated tablet 1 Tab, Daily, 30 Tab, 0 Refills Celexa 40 mg oral tablet 1 Tab, Daily, 30 Tab, 0 Refills Lidoderm , Every 24 hours, 0 Refills Lortab 10/500 oral tablet 1 Tab, Every 6 hours, 0 Refills Maxalt-OCEANOGRAPHER ASSISTANT 10 mg oral tablet, disintegrating 10 mg, 1 Tab, Every 24 hours, 0 Refills Neurontin 300 mg oral capsule See Instructions, 1 Cap PO daily at bedtime x 5 days increase to 1 Cap PO bid x 5 days increase to 1 Cap PO tid., 1 Cap, 0 Refills Niaspan ER 1000 mg oral tablet, extended release 1 Tab, At bedtime, 30 Tab, 0 Refills OxyContin 10 mg oral tablet, extended release 10 mg, 1 Tab, Every 12 hours, 60 Tab, 0 Refills Premarin 0.9 mg oral tablet 1 Tab, Daily, 30 Tab, 0 Refills Singulair 10 mg oral tablet 1 Tab, Every evening, 30 Tab, 0 Refills Soma 350 mg oral tablet 1 Tab, Every 6 hours, 30 Tab, 0 Refills<%END%> DISCHARGE INFORMATION Discharge Disposition: <%DISDISP%><%END%> Discharge Location: <%DISLOC%><%END%>PATIENT EDUCATION INFORMATION Instructions: <%DISINSTRUCT%><%END%> Follow up: <%FOLLOWUPTABLE%>With: Address: When: Diana Garcia [facility] [facility], [place] [address] [facility] (1) 11/19/2011 14:30:00 Comments: <%END%>DIAGNOSIS<%DIAGNOSIS%>Intractable Chronic Migraine without Aura with Status Migrainosus; Cervical myofascial pain syndrome<%END%> 09/20/2011 [facility] Amb Nurs Intake Event Amb Nurs Intake Event 09/20/2011 [facility] Office/ Clinic Notes Office/Clinic Notes [address], [address]. [place] [phone] XVKNHCI: WINIFRED CHRISTIAN RMR #: [id number] #: [id number]: 1975DATE SEEN: 09/20/2011Chief ComplaintPatient is here for Botox injection for chronic migraine.History of Present IllnessPatient is a pleasant 36-year-old white female who comes today for Botox therapy for chronic migraines. Patient states that she continues to have 3 to 5 headaches per week and has 2 to 3 emergency room visits per month. Patient has a long history of cervical pain with 3 cervical surgeries in the past. Patient continues to have severe myofascial pain that radiates from the trapezius up the neck to the base of the skull, radiating around to the temporalis muscles bilaterally. She reports her headache pain is 8/10 today. She states that it is constant, dull, aching pain in the previously described distribution. Patient does take Lortab for her pain. Additionally, patient's instrumentation has been coming loose from a previous fusion in her neck. She is scheduled to have surgery October 10 to redo the instrumentation. She also has an additional vertebra that they will fuse in that surgery. Patient's surgeon will be taking care of her postsurgical pain medications. Patient has no additional concerns today.Pain AssessmentCognitive Status: Independent, decisions consistent/ reasonableIntensity: 8Location: NeckLaterality: RightQuality: Aching, BurningAggravating Factors: Movement, Sitting, Standing, WalkingAlleviating Factors: Moist heat, RestInterventions: Heat, Medications, Repositioning, RestPain Effects on Appetite: ModeratePain Effects on Concentration: SeverePain Effects on Daily Life: NonePain Effects on Emotions: ModeratePain Effects on Relationships: NonePain Effects on Sleep: ModeratePain Effects on Work/School: NonePain Best: 5Pain Worst: 10Review of Systems HEENT: Neck pain, Neck stiffnessMusculoskeletal: Muscle or joint painNeurological: Numbness, TinglingPertinent negative for the following system(s): Constitutional , Respiratory, Cardiovascular, GI/, Integumentary, Hematologic, Endocrine, PsychiatricAllergiesSeasonaleCurrent MedicationsAbilify 10 mg oral tablet ( aripiprazole), 1 Tab, Dailyaspirin 81 mg oral enteric coated tablet (aspirin), 1 Tab, Daily, Comment: 2 tabs po dailyCelexa 40 mg oral tablet (citalopram), 1 Tab, DailyLidoderm (lidocaine topical), Every 24 hoursLortab 10/500 oral tablet (acetaminophen-hydrocodone), 1 Tab, Every 6 hours, Comment: 1 tab po 4 x daily.Maxalt-OCEANOGRAPHER ASSISTANT 10 mg oral tablet, disintegrating (rizatriptan), 10 mg 1 Tab, Every 24 hours, Comment: Takes as needed for Migraine.Neurontin 300 mg oral capsule (gabapentin), 1 Cap PO daily at bedtime x 5 days increase to 1 Cap PO bid x 5 days increase to 1 Cap PO tid.Niaspan ER 1000 mg oral tablet, extended release (niacin), 1 Tab, At bedtimeOxyContin 10 mg oral tablet, extended release (oxycodone), 10 mg 1 Tab, Every 12 hours, Comment: Paper Script sent with patient, medication was filled at [facility] in [place], [place].Premarin 0.9 mg oral tablet (conjugated estrogens), 1 Tab, DailySingulair 10 mg oral tablet ( montelukast), 1 Tab, Every eveningSoma 350 mg oral tablet (carisoprodol), 1 Tab , Every 6 hoursProblems and Past Medical HistoryActiveBack painCervical myofascial pain syndromeIntractable Chronic Migraine without Aura with Status MigrainosusFamily HistoryNeurological Past Medical HistoryNeurological, Other Medical History: Mother, Father, COPD, HEP C, CANCEROncologic Past Medical HistoryOncologic, Other Medical History: Father, CANCER UNKNOWN WHAT KIND Procedure HistoryHysterectomy - vaginal *tonsillectomyHernia repair s8Tagng BackNeck Surgery d1Vzledg HistoryAlcohol Use: CurrentAlcohol Type: WineAlcohol Frequency: Other: occ.Caffeine Use: CurrentCaffeine Type: SodaCaffeine Frequency: Other: occ.Current Tobacco Usage: DeniesRecreational Drug Use: DeniesPhysical ExaminationTEMP BP Pulse RR MAP O2 Sat 36.6138/ [id number] Pressure Location: Left arm Oxygen Therapy: Room air Weight Height BMI BSA 157.0 cmEstimated Weight: 86 kg kgPatient is a 36-year -old white female sitting on the exam table. She does not appear to be in any distress.Neurological: Patient is alert and oriented x3.Psychological: Patient appears to have the appropriate mood and affect.HEENT: Normocephalic, atraumatic, cranial nerves II-XII are grossly intact. No cervical lymphadenopathy. Pupils are equal and reactive to light.Respiratory: Clear to auscultation bilaterally. No wheezes, rhonchi, or crackles.Cardiovascular: S1 , S2, regular rate and rhythm. No murmurs, rubs, or gallops.Abdomen: Soft, nontender, bowel sounds are present.Musculoskeletal: Patient's strength is 5/5 strength in the upper and lower extremities. However, flexion and extension does exacerbate patient's neck pain as well as bilateral trapezius pain. Range of motion of the cervical spine is very limited. She has approximately 15 degrees of rotation from right to left, 5 degrees flexion, zero degrees extension. Patient has point tenderness throughout the trapezius from the base of the skull extending down to mid supraspinatus muscle bilaterally as well as paraspinal pain from the base of the skull to approximately T1 bilaterally on palpation. Extremities: No cyanosis or edema.Skin: Warm and dry without rashes or lesions.ImpressionIntractable Chronic Migraine without Aura with Status Migrainosus (346.73)Cervical myofascial pain syndrome (729.0)Back pain ( 724.5)PlanOrders this visit:Botox Injection Cervical/Neck Muscle(s) - ClinicBotox Injection Facial Muscle(s) Bilateral -ClinicBotox Medication Guide Given to Patient -ClinicFollow Up 2 months -RequestBotox, 200 units, X 1 DOSEsodium chloride, 3 mL, X [address] Randolph did perform the Botox injection for the chronic migraine treatment today. A total of 200 units of botulism toxin was given diluted with 3 mL of sodium chloride.2. The patient will follow up in 2 months.3. Procedure note will be performed by Dr. Randolph.4. Patient was given a prescription of Fentanyl 12 mcg patch, 1 patch to be placed transdermal every 72 hours.TR:CLINECDD:09/20/2011 16:36 / 09/20/2011 16:38DT:09/22/2011 09:08 09/22/2011 09:32TED#:[id number] / [id number] [Electronically Signed on 09.23.2011 06:46 am] Diana Garcia MD </br> 09/20/2011 [ Electronically Signed on 09.23.2011 06:46 am] Diana Garcia MD [facility] Office/Clinic Notes Office/Clinic Notes Corrected copy[address] [place] [id number] KLQYWMP: WINIFRED CHRISTIAN R #: [id number] #:[id number]: 04/1975DATE SEEN: 08/31/2011Chief ComplaintNeck pain, back pain, and migraine headaches.History of Present IllnessPatient is a 36-year-old white female who comes today with complaints of chronic migraine, chronic cervical pain, and chronic back pain. According to the patient, she was diving into a pool when she was 6 years old and injured her neck. She also has had 3 prior cervical anterior fusions. She states that she is currently taking Lortab 10/500 one tablet 4 times a day which does not help her pain. She also states that she has a neuropathic component to her pain. She reports radicular pain down the shoulders and into the bilateral 5th and ring finger of both hands. She did have an MRI of the cervical spine last week that she brought with her today. She is scheduled to see a surgeon in [place] on September 06 for a consultation for neck surgery. The patient also reports migraines 3 to 4 times weekly that radiate from her cervical spine up the back of her head bilaterally and to the lateral aspect of her head. She states that she usually has to go to the emergency room 3 to 4 times a month for IV medication just to break the migraines. She does take Maxalt for onset of headaches. Regarding her chronic neck pain as well, she does report spasms daily. She is currently taking Soma 350 mg 3 times a day. We did discuss the possibility of increasing that today. Regarding her low back, she has also had a lumbar fusion. She is not sure of the exact levels. They did go through an anterior approach. She states that she would get those previous past medical records for me. Pain AssessmentCognitive Status: Independent, decisions consistent/ reasonableIntensity: 8Location: NeckComment: And Shoulder area. Hx of back pain. Hx of Migraine.Time Pattern: ChronicQuality: Aching, BurningRadiating: BilateralRadiation Location: HandAssociated Symptoms: Loss of appetite, Nausea , Unable to sleepAggravating Factors: Sitting, StandingAlleviating Factors: Cold therapy, Other: Lidoderm patches applied to back,neck.Review of Systems Constitutional: Patient denies any fever, chills.HEENT: HeadacheMusculoskeletal: Back Pain, Muscle or joint pain, StiffnessNeurological : Numbness, Tingling, DizzinessComment: With MigrainePertinent negative for the following system(s): Respiratory, Cardiovascular, GI/, Integumentary, Endocrine, Psychiatric. All other systems were reviewed and found to be negative except noted above in the HPI.AllergiesSeasonalePatient complains of seasonal allergies only, no known drug allergies.Current MedicationsAbilify 10 mg oral tablet (aripiprazole), 1 Tab, Dailyaspirin 81 mg oral enteric coated tablet (aspirin), 1 Tab, Daily, Comment: 2 tabs po dailyCelexa 40 mg oral tablet (citalopram), 1 Tab, DailyLidoderm (lidocaine topical), Every 24 hoursLortab 10/500 oral tablet (acetaminophen-hydrocodone), 1 Tab, Every 6 hours, Comment: 1 tab po 4 x daily.Maxalt-OCEANOGRAPHER ASSISTANT 10 mg oral tablet, disintegrating (rizatriptan), 10 mg 1 Tab, Every 24 hours, Comment: Takes as needed at onset of migraine.Niaspan ER 1000 mg oral tablet, extended release ( niacin), 1 Tab, At bedtimePremarin 0.9 mg oral tablet (conjugated estrogens), 1 Tab, DailySingulair 10 mg oral tablet (montelukast), 1 Tab, Every eveningSoma 350 mg oral tablet (carisoprodol), 1 Tab, 3 times a dayProblems and Past Medical HistoryActiveCervical myofascial pain syndromeChronic back pain.Intractable Chronic Migraine without Aura with Status MigrainosusMyofascial pain.Family HistoryPatient reports her father has COPD ( chronic obstructive pulmonary disease), hepatitis C, and cancer. Her mother is in good health. She also has 2 children which are in good health as well. Procedure HistoryHysterectomy - vaginal *tonsillectomyHernia repair z2Vkgmt BackNeck Surgery p0Warghg HistoryCurrent Tobacco Usage: DeniesEducation: CollegePatient denies any use of alcohol or street drugs. Patient does have an educational history of college. She does live with her . She does report difficulties in her ADL's. Living Situation: Home with spouse Physical ExaminationTEMP BP Pulse RR MAP O2 Sat 36.9124/[id number] Pressure Location: Right arm Weight Height BMI BSA 91.900 kg (202.60 lbs) 157.0 cm37.32.0020 g6Btvzm: Standing digital Patient's pain scale is 4 to 5 over 10 today. Patient is an obese 36-year-old white female sitting on the exam table. She does not appear to be in any distress, however she does appear to be very uncomfortable today secondary to her neck pain.Psychological: Patient appears to have the appropriate mood and affect.HEENT: Normocephalic, atraumatic, cranial nerves II-XII are grossly intact. Respiratory: Clear to auscultation. No wheezes, rhonchi, or crackles.Cardiovascular: S1, S2, regular rate and rhythm. No murmur, rubs, or gallops.Abdomen: Soft, bowel sounds are present.Extremities/Musculoskeletal: Patient does have full range of motion of all extremities with 5/5 strength in the upper and lower extremities. Patient does report referred pain to her back on bilateral resistance against hip flexion. Cervical Range of Motion: Patient is able to rotate her neck 65 degrees to the left and 65 degrees to the right. Patient is unable to extend her neck. She has approximately 15 degrees of flexion. Also on palpation patient has severe pain on the paraspinal musculature from C2 to C8 bilaterally.Low Back: Flexion is normal. Side to side bending patient does report discomfort but no direct pain. Skin: Warm and dry without rashes or lesions.ImpressionCervical pain, Neck pain (723.1)Cervical myofascial pain syndrome (729.0)Chronic Migraine (346.90)Spasms.Chronic back pain, Pain in Back (724.5) Intractable Chronic Migraine without Aura with Status Migrainosus ( 346.73)PlanOrders this visit:Trigger Point Inj 3 Or More Muscles -Clinic1. The patient was given OxyContin 10 mg every 12 hours for her chronic cervical pain. She will continue Lortab at 10/325 one tablet up to 4 times daily every 4 to 6 hours for breakthrough pain.2. For her neuropathic component of pain, she was given Neurontin 300 mg 1 tablet at bedtime for 5 days, then advance to 1 tablet twice a day for 5 days, then advance to 1 tablet 3 times a day.3. For her spasms, patient was given Soma 350 mg 1 tablet every 6 hours.4. Regarding her myofascial pain, we will give trigger point injections today.5. For patient 's chronic migraines, she will continue Maxalt for onset of headaches. We will also try to have her pre approved for Botox injections. 6. The patient does have plans to see a neurosurgeon in [place], [place], on September 06 for a consultation for cervical surgery. 7. The patient will follow up in 2 weeks to be reevaluated for her myofascial pain.ProcedureTrigger point injection for myofascial pain.The areas of greatest tenderness were palpated and marked on the paraspinal musculature bilaterally between the levels of C2 to C7, the bilateral splenius capitis and the bilateral trapezius. The skin was cleansed with betadine. A 27 guage needle was used to inject 1 mL of Kenalog diluted with 2 mL of 0.5% bupivacaine. Four syringes were uses. The patient tolerated the procedure well. The skin was cleansed. No band aids were needed. Patient was instructed to use ice if she had further discomfort this evening.TR: Tiffany: 09/08/2011 13:18:00DR: DE: JOB#: [id number] cc:Bryn Escamilla M.D., COLLIN Tillman, ph: TR:CLINECDD:08/31/2011 16:05DT:09/01/2011 09:02CR: 09/09/2011 16:14 msmTED#:[id number] [Electronically Signed on 09.13.2011 06:48 am] Diana Garcia MD </br> 08/31/2011 [ Electronically Signed on 09.13.2011 06:48 am] Diana Garcia MD [facility] Ambulatory Depart Summary Ambulatory Depart Summary <%UDTHART_CLINIC_ HEADER_UDT%>[facility] [address] [place] [address], [address] [address] <%END%> PERSON INFORMATION Name <%NAME%>WINIFRED CHRISTIAN Jhonny<%END%> Age <%AGE%> 36 Years<%END%> <%%>1975<%END%> Sex <%GENDER%>Female<%END%> Language <%LANGUAGE%>[place]<%END%> PCP <%PCP%>None, Stated<%END%> Marital Status <%MARITALSTAT%><%END%> Phone <%PHONE%> <%END%> Time Zone <%TIMEZONE%><%END%> MRN <%ALIASPMRN%>[id number]<%END%> Visit Id <%ALIASEVISITID%><%END%> Acct# <%ALIASEFIN NBR%>[id number]<%END%> Visit Reason <%RFV%>EVAL NECK PAIN AND HEADACHES<%END%> Specialty <%SPECIALTY%><%END%> Enc Type <%ENCNTRTYPE%>[facility]<%END%> Med Service <%MEDSERVICE%>OUTPT-Outpatient/Hospital<%END%> Referred by <%REFERREDBY%><%END%> Track Group <%TRACKGROUP%>Clinic Discharge Process<%END%> Discharge <%DISCHDTTM%><%END%> Tracking Id <%TRACKINGID%><%END%> Checkout <%CHECKOUTDTTM%><%END%> Checkin <%CHECKINDTTM%><%END%> Acuity <%ACUITY%><%END%> Dispo Type <%DISDISP%><%END%> Arrival <%ARRIVALDTTM%>08/31/2011 1:41 PM<%END%> Reg Status <%REGSTATUS%><%END%> LOS <%LOSTRACK%><%END%> Address: <%ADDRESS%>[address] [facility] [address]<%END%> PHYS DOC NOTES<%PHYDOC%><%END%> PROVIDER INFORMATION <%PROVROLETBL%><%END%>VITALS INFORMATION <%UDTHART_DEPART_CLIN_VITALS%>Height: 5ft 1.8in Weight: 202.60 lbs (BMI: 37.3) Temp: 98.4 F Heart Rate: 78 Respiratory: 20 O2 Sat: BP: 124/80 <%END%>LOCATION INFORMATION <%LOCTBL%>Arrival Nurse Unit Room Bed <%END%>ORDERS INFORMATION<%ORDNRESTBL%><%END%>MEDICAL INFORMATION Allergy Info: <%ALLERGY%>Seasonale<%END%>HOME MEDICATIONS<%UDTHART_ DEPART_HOME_MEDS%>Abilify 10 mg oral tablet 1 Tab, Daily, 30 Tab, 0 Refills aspirin 81 mg oral enteric coated tablet 1 Tab, Daily, 30 Tab, 0 Refills Celexa 40 mg oral tablet 1 Tab, Daily, 30 Tab, 0 Refills Lidoderm , Every 24 hours, 0 Refills Lortab 10/500 oral tablet 1 Tab, Every 6 hours, 0 Refills Maxalt-OCEANOGRAPHER ASSISTANT 10 mg oral tablet, disintegrating 10 mg, 1 Tab, Every 24 hours, 0 Refills Niaspan ER 1000 mg oral tablet, extended release 1 Tab, At bedtime, 30 Tab, 0 Refills Premarin 0.9 mg oral tablet 1 Tab, Daily, 30 Tab, 0 Refills Singulair 10 mg oral tablet 1 Tab, Every evening, 30 Tab, 0 Refills Soma 350 mg oral tablet 1 Tab, 3 times a day, 30 Tab, 0 Refills<%END%> DISCHARGE INFORMATION Discharge Disposition: <%DISDISP%><%END%> Discharge Location: <%DISLOC%><%END%>PATIENT EDUCATION INFORMATION Instructions: <%DISINSTRUCT%>Trigger Point Injection; Back Exercises: Lower Back Rotation; Back Exercises: Lower Back Stretch; Neck Exercises: Neck Isometrics; Neck Exercises: Head Clock; Neck Exercises: Passive Neck Rotation; Neck Exercises: Active Neck Rotation; Neck Exercises: Arm Lift; Neck Exercises: Active Neck Rotation<%END%> Follow up: <%FOLLOWUPTABLE%>With: Address: When: Diana Garcia [address] [place] [address] [id number] [facility] 09/20/2011 14:30:00 Comments: <%END%>DIAGNOSIS<%DIAGNOSIS%>Migraine; Pain in Back; Neck pain<%END%> 08/31/2011 [facility] Amb Nurs Intake w Hx Event Amb Nurs Intake w Hx Event 08/31/2011 [facility] Level of Functioning [facility] Level of Functioning [facility] 08/31/2011 [facility] Vital Signs Encounters Location Location Details Encounter Type Encounter Number Reason For Visit Attending Provider ADM Date DC Date Status Source [facility] [id number] EVAL NECK PAIN AND HEADACHES DIANA GARCIA 2011 Active [facility] ( Outpatient) [id number] EVAL NECK PAIN AND HEADACHES DIANA GARCIA 08/31/2011 08/31/[address] [facility] [id number] FOLLOW UP AFTER TRIGGER POINT DIANA GARCIA Active [facility] ( Outpatient) [id number] FOLLOW UP AFTER TRIGGER POINT DIANA GARCIA 09/20/2011 09/20/2011 [facility] [address] [facility] [id number] FOLLOW UP Diana Garcia [facility] [id number] FOLLOW UP DIANA GARCIA 11/19/2011 [facility] [id number] FOLLOW UP DIANA GARCIA 11/19/2011 11/19/2011 Active [facility] [id number] INJECTIONS DIANA GARCIA 01/14/2012 Active [facility] [id number] INJECTIONS DIANA GARCIA 01/1301/14/2012 Active [facility] [id number] 2 MONTH FOLLOW UP DIANA GARCIA 03/14/2012 Active [facility] [id number] 2 MONTH FOLLOW UP DIANA GARCIA 201103/14/2012 Active [facility] [id number] Folllow Up DIANA GARCIA 06/13/2012 Active [facility] [id number] FOLLLOW UP DIANA GARCIA 06/13/2012 06/13/2012 Active [facility] [id number] Follow Up/Medication DIANA GARCIA 10/05/2012 Active [facility] [id number] FOLLOW UP/MEDICATION DIANA GARCIA 10/05/2012 [facility] [address] [place] [address] [id number] INJECTION Diana Garcia 2012 Active [facility] [id number] INJECTION DIANA GARCIA 201210/06/2012 [facility] [address] [facility] [id number] Follow Up / Botox Injection Scheduled Diana Garica 10/27/2012 Active [facility] [id number] Follow Up / Botox Injection Scheduled DIANA GARCIA 12/29/2012 12/29/2012 [facility] [address] [place] [address] [id number] FOLLOW UP AFTER BOTOX 12-29-12 Diana Garcai 2013 2013 Active [facility] [id number] MED MANAGEMENT/ POSSIBLE INJ/AND BOTOX EVAL DIANA GARCIA 05/10/2013 Active [facility] [address] [facility] [id number] 1 MONTH MANAGEMENT Diana Garcia 06/07/2013 Active [facility] [address] [facility] [id number] 4 MONTH MED MANAGMENT Diana Garcia 06/14/2013 [facility] [address] [facility] [id number] FOLLOW UP Diana Garcia Active [facility] Procedures Plan of Care Social History Assessment and Plan Family History Value Date Source Advance Directives Order Name Results Value Date Source
--- OUTSIDE RECORDS SUMMARY | 2016-10-16 01:35 | XMS REPORT | Continuity of Care Document ---
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 2013 [facility] [place] 10 mg-325 mg oral tablet PO Active Max of 6 a day. Each refill must last 1 month. 2013 [facility] gabapentin 300 mg oral capsule PO Active GARCIA 2013 [facility] [place] 10 mg-325 mg oral tablet PO Discontinued [...] PO Discontinued GARCIA 10/05/2012 [facility] [place] 10 mg-325 mg oral tablet PO Completed Max of 6 daily GARCIA 10/05/2012 [facility] fentanyl 1200 mcg buccal film BUCC Discontinued 1 patch every three days 06/13/2012 [facility] [place] 10 mg-325 mg oral tablet PO Discontinued [...] untill 04/14/2012 GARCIA 03/14/2012 [facility] [place] 10 mg-325 mg oral tablet PO Completed Maximum of 6 daily GARCIA 03/14/2012 [facility] Duragesic-12 transdermal film, extended release TOP Discontinued GARCIA 03/14/2012 [facility] Soma 350 mg oral tablet PO Canceled INFORMATION 02/20/2012 [facility] Duragesic-12 transdermal film, extended release TOP Discontinued GARCIA 02/20/2012 [facility] [place] 10 mg-325 mg oral tablet PO Discontinued [...] TOP Discontinued GARCIA 11/19/2011 [facility] [place] 10 mg-325 mg oral tablet PO Discontinued [...] oral tablet, extended release Discontinued INFORMATION 09/02/2011 [facility] Maxalt-RELEASE AND TECHNICAL RECORDS CLERK 10 mg oral tablet, disintegrating Documented 08/31/2011 [facility] Soma 350 mg oral tablet PO Completed 08/31/2011 [facility] Lortab 10/500 oral tablet Discontinued 08/31/2011 [facility] Lidoderm TOP Documented 08/31/2011 [facility] aspirin 81 mg oral enteric coated tablet Documented 08/31/2011 [facility] Singulair 10 mg oral tablet PO Documented 08/31/2011 [facility] Niaspan ER 1000 mg oral tablet, extended release PO Documented 08/31/2011 [facility] Premarin 0.9 mg oral tablet PO Documented 08/31/2011 [facility] Celexa 40 mg oral tablet PO Documented 08/31/2011 [facility] Abilify 10 mg oral tablet PO Documented 08/31/2011 [facility] PO [facility] Allergies, Adverse Reactions, Alerts Substance Category Reaction Severity Reaction type Status Date Reported Comments Source Seasonale Datatype(AL1.2)-Environment congestion Allergy ACTIVE 12/29/2012 [facility] Immunizations Immunization Date Given Site Status Last Updated Comments Source onabotulinumtoxinA 12/29/2012 Neck completed [facility] onabotulinumtoxinA 06/13/2012 Face completed [facility] tetanus toxoid 05/06/2012 Immunization, History completed MIGNERY [facility] onabotulinumtoxinA 01/14/2012 Neck completed [facility] onabotulinumtoxinA 09/20/2011 Face completed IDICULLA [facility] influenza virus vaccine 05/01/2011 Immunization, History completed [facility] tetanus toxoid 04/06/2009 Immunization, History completed [facility] Results Order Name Results Value Reference Range Date Interpretation Comments Source Office/Clinic Notes Office/Clinic Notes This nurse called [facility], spoke to Clary, clarification on [place] 10/325mg, 1 tab, po, q 4 hrs [...] above listing of medications was verified through [facility] when filled and if there are any refills left. Dr. Garcia is expected to return mid-December, at that time, if no futher complications , we would be glad to take over medications ,if needed. 09/28/2013 [facility] Office/Clinic Notes Office/Clinic Notes This nurse attempted to call Winifred regarding Dr. Garcia not able to write scipts at this time due to extended medical leave, no answer and not able to leave a message due to phone mail was full. 09/25/2013 [facility] Office/Clinic Notes Office/Clinic Notes This nurse called [facility] in [place], [place], spoke to Josh , per Dr. Piotr MD, phone order, read back and verified, [place] 10/325, 1 Tab, PO, every 4 hours, Max of 6 daily, Qty 180, x1 refill. 06/19/2013 [facility] Office/Clinic Notes Office/Clinic Notes This nurse called and spoke to Winifred, notifying her that Dr. Garcia approved her medication refills when due and requested what pharmacy needed to be called to. Winifred requested [facility] in [facility] at [phone]. This nurse then called [facility] in [facility], per Dr. Piotr MD , Soma 350mg, 1 Tab, PO, QID, Qty 120, x 3 refills. 06/08/2013 [facility] Office/Clinic Notes Office/Clinic Notes This nurse called Dr. Piotr MD, notifying her that Winifred was requesting refills on her medication, Soma, and would need [place] and Gabapentin filled on 06/20/13. Dr. Piotr MD, gave a phone order that it was ok to refill as before on her medications Soma, [place] and Gabapentin when they are due. This nurse showed understanding and was appreciative of information. 06/08/2013 [facility] Office/Clinic Notes Office/Clinic Notes Mailed logisticare mileage reimbursement sheet to [address] [place] [address], [address], [place] [address] 05/15/2013 [facility] Office/Clinic Notes Office/Clinic Notes [facility] MEDICINE [address] [address] [address] [place] [address] PATIENT: WINIFRED CHRISTIAN MR #: [id number] PCP: None, Stated REFERRING PHYSICIAN: Self, Referral [...] neck and upper back. She also takes [place] 10/325, 1 tab every 4 hours as [...] day Lidoderm (lidocaine topical), Every 24 hours Maxalt-RELEASE AND TECHNICAL RECORDS CLERK 10 mg oral tablet, disintegrating (rizatriptan), 10 mg, Every 24 hours, Comment: Takes as needed for Migraine. Niaspan ER 1000 mg oral tablet, extended release (niacin), 1 Tab, At bedtime [place] 10 mg-325 mg oral tablet (acetaminophen-hydrocodone), 1 [...] Thank you for your continued support. TR: [id number] JG#: [id number] [Electronically Signed on 05.14.2013 03:43 PM] Diana Garcia MD </br> 05/10/2013 [Electronically Signed on 05.14.2013 03:43 PM] Diana Garcia MD [facility] Office/Clinic Notes Office/Clinic Notes This nurse faxed Botox Hotline for approval 300 units for muscle spasticity, 728.85, CPT 01223, to be done in office setting, waiting for approval authorization. 05/10/2013 [facility] Office/Clinic Notes Office/Clinic Notes This nurse placed Logistic Log for gas mileage for Dr. Garcia to sign. 05/10/2013 [facility] Ambulatory Depart Summary Ambulatory Depart Summary [address] [address] [address] [place] [address] PERSON INFORMATION Name WINIFRED CHRISTIAN Age 38 Years 1975 12:00 AM Sex Female Language Bulgarian PCP None, Stated Marital Status Legally Time Zone N [id number] Visit Id Visit Reason MED MANAGEMENT/ POSSIBLE INJ/AND BOTOX EVAL Specialty Enc Type [facility] Med Service OUTPT-Outpatient/Hospital Referred by Track Group Clinic Discharge Process Discharge Tracking Id Checkout Checkin Acuity Dispo Type Arrival 05/10/2013 1:01 PM Reg Status LOS Address: [address] [place] [address] [facility] DOC NOTES PROVIDER INFORMATION VITALS INFORMATION Height: [...] day Lidoderm , Topical, Every 24 hours Maxalt-RELEASE AND TECHNICAL RECORDS CLERK 10 mg oral tablet, disintegrating 10 mg, Oral, Every 24 hours, Takes as needed for Migraine. Niaspan ER 1000 mg oral tablet, extended release 1 Tab, Oral, At bedtime [place] 10 mg-325 mg oral tablet 1 Tab, [...] Follow up: With: Address: When: Diana Garcia [address] [place] [address] [id number] [facility] (1) 06/07/2013 13:00:00 Comments: DIAGNOSIS Cervical myofascial pain syndrome; Chronic mid back pain; Intractable Chronic Migraine without Aura with Status Migrainosus 05/10/2013 [facility] Amb Nurs Intake Event Amb Nurs Intake Event 2012 [facility] Office/Clinic Notes Office/Clinic Notes This nurse faxed [facility] reimbursement form signed by Dr. Piotr MD, for Winifred Rod. 02/28/2013 [facility] Office/Clinic Notes Office/Clinic Notes [facility] [address] [place] [address] [address] [place] [address] PATIENT: WINIFRED CHRISTIAN MR #: [id number] PCP: None, Stated REFERRING PHYSICIAN: Self, Referral [...] day Lidoderm (lidocaine topical), Every 24 hours Maxalt-RELEASE AND TECHNICAL RECORDS CLERK 10 mg oral tablet, disintegrating (rizatriptan), 10 [...] (346.73) Plan Medication changes this visit: [place] 10 mg-325 mg oral tablet, 1 Tab, [...] Thank you for your continued support. TR: [id number] JG#: [id number] [Electronically Signed on 02.16.2013 04:43 AM] Diana Garcia MD </br> 2013 [Electronically Signed on 02.16.2013 04:43 AM] Diana Garcia MD [facility] Ambulatory Depart Summary Ambulatory Depart Summary [facility] MEDICINE [address] [place] [address] PERSON INFORMATION Name WINIFRED CHRISTIAN Age 38 Years 1975 Sex Female Language Bulgarian PCP None, Stated Marital Status Legally Time Zone Visit Id Visit Reason FOLLOW UP AFTER BOTOX 12-29-12 Specialty Enc Type [facility] Med Service OUTPT-Outpatient/Hospital Referred by Track Group Clinic Discharge Process Discharge Tracking Id Checkout Checkin Acuity Dispo Type Arrival 2013 1:27 PM Reg Status LOS Address: [address] [place] [address] PHYS DOC NOTES PROVIDER INFORMATION VITALS INFORMATION [...] Printed Lidoderm , Topical, Every 24 hours Maxalt-RELEASE AND TECHNICAL RECORDS CLERK 10 mg oral tablet, disintegrating 10 mg, Oral, Every 24 hours, Takes as needed for Migraine. Niaspan ER 1000 mg oral tablet, extended release 1 Tab, Oral, At bedtime [place] 10 mg-325 mg oral tablet 1 Tab, [...] Follow up: With: Address: When: Diana Garcia [address] [place] [address] [place] [address] Business (1) 06/14/2013 13:45:00 Comments: DIAGNOSIS 2013 [facility] Amb Nurs Intake Event Amb Nurs Intake Event 2012 [facility] Amb Nurs Intake w Hx Event Amb Nurs Intake w Hx Event 12/29/2012 [facility] Level of Functioning Grid-Clinic Level of Functioning Grid-Clinic 12/29/2012 [facility] Procedure Reports Procedure Reports [facility] [address] [place] [address] [place] [id number] PATIENT: WINIFRED CHRISTIAN MR #: [id number] PCP: None, Stated REFERRING PHYSICIAN: Self, Referral [...] for your continued support. TR: SONAM JG#: [id number] [Electronically Signed on 01.05.2013 04:03 PM] Diana Garcia MD </br> 12/29/2012 [Electronically Signed on 01.05.2013 04:03 PM] Diana Garcia MD [facility] Office/Clinic Notes Office/Clinic Notes [facility] MEDICINE [address] [facility], [address] [address] [address] [place] [address] PATIENT: WINIFRED CHRISTIAN MR #: [id number] PCP: None, Stated REFERRING PHYSICIAN: Self, Referral [...] day Lidoderm (lidocaine topical), Every 24 hours Maxalt-RELEASE AND TECHNICAL RECORDS CLERK 10 mg oral tablet, disintegrating (rizatriptan), 10 mg, Every 24 hours, Comment: Takes as needed for Migraine. Niaspan ER 1000 mg oral tablet, extended release (niacin), 1 Tab, At bedtime [place] 10 mg-325 mg oral tablet (acetaminophen-hydrocodone), 1 [...] pain. Plan Medication changes this visit: Refill [place] 10 mg-325 mg oral tablet, 1 Tab, [...] for your continued support. TR: CLINEC JG#: [id number] [Electronically Signed on 10.24.2012 10:06 AM] Diana Garcia MD </br> 10/07/2012 [Electronically Signed on 10.24.2012 10:06 AM] Diana Garcia MD [facility] Procedure Reports Procedure Reports [address] [address] PATIENT: WINIFRED CHRISTIAN MR #: [id number] PCP: None, Stated REFERRING PHYSICIAN: Self, Referral [...] last night. She is driving back to [place], [place] , today and asks for medication [...] for your continued support. TR: SONAM JG#: [id number] [Electronically Signed on 10.13.2012 04:35 PM] Diana Garcia MD </br> 10/06/2012 [Electronically Signed on 10.13.2012 04:35 PM] Diana Garcia MD [facility] Amb Nurs Intake Event Amb Nurs Intake Event 2012 [facility] Office/Clinic Notes Office/Clinic Notes This nurse received and Dr. Garcia notified of Winifred needing to go to Emergency Room 3 times since last clinical visit, documentation provided. 10/06/2012 [facility] Ambulatory Depart Summary Ambulatory Depart Summary [address] [place] [phone] PERSON INFORMATION Name WINIFRED CHRISTIAN Age 37 Years 1975 Sex Female Language Bulgarian PCP None, Stated Marital Status Legally Time Zone Visit Id Visit Reason Follow Up/Medication Specialty Enc Type [facility] Med Service OUTPT-Outpatient/Hospital Referred by Track Group Clinic Discharge Process Discharge Tracking Id Checkout Checkin Acuity Dispo Type Arrival 10/05/2012 1:21 PM Reg Status LOS Address: [address] [place] [address] PHYS DOC NOTES PROVIDER INFORMATION VITALS INFORMATION [...] Printed Lidoderm , Topical, Every 24 hours Maxalt-RELEASE AND TECHNICAL RECORDS CLERK 10 mg oral tablet, disintegrating 10 mg, Oral, Every 24 hours, Takes as needed for Migraine. Niaspan ER 1000 mg oral tablet, extended release 1 Tab, Oral, At bedtime [place] 10 mg-325 mg oral tablet 1 Tab, [...] Follow up: With: Address: When: Diana Garcia [address] [place] [address] [facility] (1) 10/27/2012 15:00:00 Comments: DIAGNOSIS Muscle spasms of neck; Back pain; Cervical myofascial pain syndrome 10/05/2012 [facility] Amb Nurs Intake Event Amb Nurs Intake Event 2012 [facility] Office/Clinic Notes Office/Clinic Notes This nurse called [facility], spoke to Nicole, per Dr. Garcia, read back and verified, "Ok to refill this [place] early this time only." Nicole showed understanding and was appreciative of call. This nurse then called and left message on phone mail for Winifred, notifying her that [place] would be filled early this time only and that Dr. Garcia needed clinical documentation from Dr. iMner after seen. 08/04/2012 [facility] Office/Clinic Notes Office/Clinic Notes This nurse called in script for refill of Soma, had called Prior Authroization, it was ok'd and to have pharmacy re-send for refill, message left on phone mail of [facility] at [facility]. 07/14/2012 [facility] Office/Clinic Notes Office/Clinic Notes [facility] [address] [address] [address] [place] [address] PATIENT: WINIFRED CHRISTIAN MR #: [id number] PCP: None Stated REFERRING PHYSICIAN: Self Referral [...] day Lidoderm (lidocaine topical), Every 24 hours Maxalt-RELEASE AND TECHNICAL RECORDS CLERK 10 mg oral tablet, disintegrating (rizatriptan), 10 mg, Every 24 hours, Comment: Takes as needed for Migraine. Niaspan ER 1000 mg oral tablet, extended release (niacin), 1 Tab, At bedtime [place] 10 mg-325 mg oral tablet (acetaminophen-hydrocodone), 1 [...] TEMP BP Pulse RR MAP O2 Sat 36.3126/[id number] Blood Pressure Location: Right arm Oxygen Therapy: [...] waste) Location: Muscles/Sites Injected A - Bilateral Gaming Department Head - 10 units divided in 2 sites [...] 17:00 DE: 06/14/2012 04:51 CR: 06/20/2012 15:21 [facility] JOB#: [id number] [Electronically Signed on 06.29.2012 06:07 PM] Diana Garcia MD </br> 06/20/2012 [Electronically Signed on 06.29.2012 06:07 PM] Diana Garcia MD [facility] Ambulatory Depart Summary Ambulatory Depart Summary <%UDTHART_CLINIC_HEADER_UDT%>[address] [address] <%END%> PERSON INFORMATION Name <%NAME%>WINIFRED CHRISTIAN<%END%> Age <%AGE%> 37 Years<%END%> <%%>1975<%END%> Sex <%GENDER%>Female<%END%> Language <%LANGUAGE%>Bulgarian<%END%> PCP <%PCP%>None, Stated<%END%> Marital Status <%MARITALSTAT%><%END%> Phone <%PHONE%> <%END%> Time Zone <%TIMEZONE%><%END%> MRN <%ALIASPMRN%>[id number]<%END%> Visit Id <%ALIASEVISITID%><%END%> Acct# <%ALIASEFIN NBR%>[id number]<%END%> Visit Reason <%RFV%>Folllow Up<%END%> Specialty <%SPECIALTY%><%END%> Enc Type <%ENCNTRTYPE%>[facility]<%END%> Med Service <%MEDSERVICE%>OUTPT-Outpatient/Hospital<%END%> Referred by <%REFERREDBY%><%END%> Track Group <%TRACKGROUP%>Clinic Discharge Process<%END%> Discharge <%DISCHDTTM%><%END%> Tracking Id <%TRACKINGID%><%END%> Checkout <%CHECKOUTDTTM%><%END%> Checkin <%CHECKINDTTM%><%END%> Acuity <%ACUITY%><%END%> Dispo Type <%DISDISP%><%END%> Arrival <%ARRIVALDTTM%>06/13/2012 1:33 PM<%END%> Reg Status <%REGSTATUS%><%END%> LOS <%LOSTRACK%><%END%> Address: <%ADDRESS%>[address] [facility] [address]<%END%> PHYS DOC NOTES<%PHYDOC%><%END%> PROVIDER INFORMATION <%PROVROLETBL%><%END%>VITALS INFORMATION [...] 06/13/2012 4:00 PM Nurse PBB Level 4 (99-28) - 28337 Evaluation and Management Completed 06/13/2012 4:00 PM Diana Garcia MD 06/13/2012 3:54 PM Office Visit Level 5 Est - 10631 Evaluation and Management Completed 06/13/2012 3:54 PM [...] Printed Lidoderm , Topical, Every 24 hours Maxalt-RELEASE AND TECHNICAL RECORDS CLERK 10 mg oral tablet, disintegrating 10 mg, 1 Tab, Oral, Every 24 hours , Takes as needed for Migraine. Niaspan ER 1000 mg oral tablet, extended release 1 Tab, Oral, At bedtime [place] 10 mg-325 mg oral tablet 1 Tab, [...] up: <%FOLLOWUPTABLE%>With: Address: When: Diana Garcia [address] [address] [address] [place] [address] Business ([employer] 10/06/2012 13:00:00 Comments: <%END%>DIAGNOSIS<%DIAGNOSIS%>Chronic mid back pain; Cervical myofascial pain syndrome; Intractable Chronic Migraine without Aura with Status Migrainosus ; Muscle spasms of neck; Neuropathic pain<%END%> 06/14/2012 [facility] Amb Nurs Intake Event Amb Nurs Intake Event 06/13/2012 [facility] Office/ Clinic Notes Office/Clinic Notes [address] [address] [address] [place] [phone] MBMHFIH: WINIFRED CHRISTIAN R #: [id number] #:[id number]: None StatedREFERRING PHYSICIAN: Self ReferralDOB: 1975DATE SEEN: [...] times a dayLidoderm (lidocaine topical), Every 24 hoursMaxalt-RELEASE AND TECHNICAL RECORDS CLERK 10 mg oral tablet, disintegrating ( rizatriptan), [...] KINDProcedure HistoryHysterectomy - vaginal * tonsillectomyHernia repair [id number] BackInck Surgery z3Nwycel HistoryAlcohol Use: CurrentAlcohol Type: WineAlcohol Frequency: Other: occ.Caffeine Use: CurrentCaffeine Type: SodaCaffeine Frequency: Other: occ.Current Tobacco Usage : DeniesRecreational Drug Use: DeniesPhysical ExaminationTEMP BP Pulse RR MAP O2 Sat 36.7120/[id number] Pressure Location: Right arm Oxygen Therapy: Room [...] / 03/24/2012 14:09DT:03/22/2012 14:37 / 03/29/2012 12: 02TED#:[id number] / [id number] [Electronically Signed on 03.29.2012 02:21 PM] Diana Garcia MD </br> 03/21/2012 [ Electronically Signed on 03.29.2012 02:21 PM] Diana Garcia MD [facility] Ambulatory Depart Summary Ambulatory Depart Summary <%UDTHART_CLINIC_ HEADER_UDT%>[facility] [address] [place] [phone] <%END%> PERSON INFORMATION Name <%NAME%>WINIFRED CHRISTIAN<%END%> Age <%AGE%> 37 Years<%END%> <%%>1975<%END%> Sex <%GENDER%>Female<%END%> Language <%LANGUAGE%>Bulgarian<%END%> PCP <%PCP%>None, Stated<%END%> Marital Status <%MARITALSTAT%><%END%> Phone <%PHONE%> <%END%> Time Zone <%TIMEZONE%><%END%> MRN <%ALIASPMRN%>[id number]<%END%> Visit Id <%ALIASEVISITID%><%END%> Acct# <%ALIASEFIN NBR%>[id number]<%END%> Visit Reason <%RFV%>2 MONTH FOLLOW UP<%END%> Specialty <%SPECIALTY%><%END%> Enc Type <%ENCNTRTYPE%>[facility]<%END%> Med Service <%MEDSERVICE%>OUTPT-Outpatient/Hospital<%END%> Referred by <%REFERREDBY%><%END%> Track Group <%TRACKGROUP%>Clinic Discharge Process<%END%> Discharge <%DISCHDTTM%><%END%> Tracking Id <%TRACKINGID%><%END%> Checkout <%CHECKOUTDTTM%><%END%> Checkin <%CHECKINDTTM%><%END%> Acuity <%ACUITY%><%END%> Dispo Type <%DISDISP%><%END%> Arrival <%ARRIVALDTTM%>03/14/2012 1:45 PM<%END%> Reg Status <%REGSTATUS%><%END%> LOS <%LOSTRACK%><%END%> Address: <%ADDRESS%>[address] [facility] [address]<%END%> PHYS DOC NOTES<%PHYDOC%><%END%> PROVIDER INFORMATION <%PROVROLETBL%><%END%>VITALS INFORMATION <%UDTHART_DEPART_CLIN_VITALS%>Height: 5ft 1.8in Weight: 203.93 lbs Temp: 98.1 F Heart Rate: 80 Respiratory: 18 O2 Sat: BP: 120/98 <%END%>LOCATION INFORMATION <%LOCTBL%>Arrival Nurse Unit Room Bed <%END%>ORDERS INFORMATION <%ORDNRESTBL%>Start Time Order Type Status Stop Time Provider 03/14/2012 3:17 PM Nurse PBB Level 3 (18-48) - 21494 Evaluation and Management Completed 03/14/2012 3:17 PM [...] Refills Lidoderm , Topical, Every 24 hours Maxalt-RELEASE AND TECHNICAL RECORDS CLERK 10 mg oral tablet, disintegrating 10 mg, 1 Tab, Oral, Every 24 hours , Takes as needed for Migraine. Niaspan ER 1000 mg oral tablet, extended release 1 Tab, Oral, At bedtime [place] 10 mg-325 mg oral tablet 1 Tab, Oral, Every 4 hours, as needed, for pain , 2 Refills, Maximum of 6 daily Premarin 0.9 mg oral tablet 1 Tab, Oral, Daily Singulair 10 mg oral tablet 1 Tab, Oral, Every evening<%END%>DISCHARGE INFORMATION Discharge Disposition: <%DISDISP%><%END%> Discharge Location: <% DISLOC%><%END%>PATIENT EDUCATION INFORMATION Instructions: <%DISINSTRUCT%> <%END%> Follow up: <%FOLLOWUPTABLE%>With: Address: When: Diana Garcia [address] [place] [address] Business (1) 06/22/2012 13:15:00 Comments: <%END%>DIAGNOSIS<%DIAGNOSIS%>Muscle spasms of neck; Intractable Chronic Migraine without Aura with Status Migrainosus; Back pain; Neuropathic pain<%END% > 03/14/2012 [facility] Amb Nurs Intake Event Amb Nurs Intake Event 03/14/2012 [facility] Ambulatory Depart Summary Ambulatory Depart Summary <%UDTHART_CLINIC_HEADER_UDT%>[facility] [address] [place] [address], [address] [place] [address] <%END%> PERSON INFORMATION Name <%NAME%>WINIFRED CHRISTIAN<%END%> Age <%AGE%> 36 Years<%END%> <%%>1975<%END%> Sex <%GENDER%>Female<%END%> Language <%LANGUAGE%>Bulgarian<%END%> PCP <%PCP%>None, Stated<%END%> Marital Status <%MARITALSTAT%><%END%> Phone <%PHONE%> <%END%> Time Zone <%TIMEZONE%><%END%> MRN <%ALIASPMRN%>[id number]<%END%> Visit Id <%ALIASEVISITID%><%END%> Acct# <%ALIASEFIN NBR%>[id number]<%END%> Visit Reason <%RFV%>INJECTIONS<%END%> Specialty <%SPECIALTY%><%END%> Enc Type <%ENCNTRTYPE%>[facility]<%END%> Med Service <%MEDSERVICE%>OUTPT-Outpatient/Hospital<%END%> Referred by <%REFERREDBY%><%END%> Track Group <%TRACKGROUP%>Clinic Discharge Process<%END%> Discharge <%DISCHDTTM%><%END%> Tracking Id <%TRACKINGID%><%END%> Checkout <%CHECKOUTDTTM%><%END%> Checkin <%CHECKINDTTM%><%END%> Acuity <%ACUITY%><%END%> Dispo Type <%DISDISP%><%END%> Arrival <%ARRIVALDTTM%>01/14/2012 1:42 PM<%END%> Reg Status <%REGSTATUS%><%END%> LOS <%LOSTRACK%><%END%> Address: <%ADDRESS%>[address] [facility] [address]<%END%> PHYS DOC NOTES<%PHYDOC%><%END%> PROVIDER INFORMATION <%PROVROLETBL%><%END%>VITALS INFORMATION [...] hours, 1 tab po 4 x daily. Maxalt-RELEASE AND TECHNICAL RECORDS CLERK 10 mg oral tablet, disintegrating 10 mg, 1 Tab, Oral, Every 24 hours , Takes as needed for Migraine. Niaspan ER 1000 mg oral tablet, extended release 1 Tab, Oral, At bedtime [place] 10 mg-325 mg oral tablet 1 Tab, Oral, Every 4 hours, as needed, for pain , 2 Refills, Maximum of 6 daily OxyContin 10 mg oral tablet, extended release 10 mg, 1 Tab, Oral, Every 12 hours, Paper Script sent with patient, medication was filled at [facility] in [place], [place]. Premarin 0.9 mg oral tablet 1 [...] Cervical myofascial pain syndrome; Back pain<%END%> 01/14/2012 [facility] Prescription Pickup Prescription Pickup 01/14/2012 [facility] Amb Nurs Intake Event Amb Nurs Intake Event 01/14/2012 [facility] Office/Clinic Notes Office/Clinic Notes [address], [address]. [place] [phone] EPRXTDD: WINIFRED CHRISTIAN R #: [id number] #:[id number]: None StatedREFERRING PHYSICIAN: Self ReferralDOB : 1975DATE [...] hours, Comment: 1 tab po 4 x daily.Maxalt-RELEASE AND TECHNICAL RECORDS CLERK 10 mg oral tablet, disintegrating (rizatriptan), 10 [...] sent with patient, [facility] [place], [place].Premarin 0.9 mg oral tablet (conjugated estrogens), [...] KIND Procedure HistoryHysterectomy - vaginal *tonsillectomyHernia repair n0Iidee BackNeck Surgery t5Rpzrut HistoryAlcohol Use: CurrentAlcohol Type: WineAlcohol Frequency: Other: occ.Caffeine Use: CurrentCaffeine Type: SodaCaffeine Frequency: Other: occ.Current Tobacco Usage: DeniesRecreational Drug Use: DeniesPhysical ExaminationTEMP BP Pulse RR MAP O2 Sat 36.6112/ 074361809.00Blood Pressure Location: Left arm Oxygen Therapy: Room air Weight Height BMI BSA 92.5 kg (203.93 lbs)157.0 cm37.52.0085 x2Izgjr: Standing digital Patient is an obese 36-year-old [...] sent with patient, medication was filled at [facility] in [place], [place].Soma 350 mg oral tablet, 350 mg=1 [...] her stretching and strengthening program. TR:CLINECDD:01/14/2012 15:16DT:01/17/2012 12:40TED#:[id number] [Electronically Signed on 01.31.2012 09:35 AM] Diana Garcia MD </br> 01/14/2012 [ Electronically Signed on 01.31.2012 09:35 AM] Diana Garcia MD [facility] Amb Nurs Intake Event Amb Nurs Intake Event 11/23/2011 [facility] Office/Clinic Notes Office/Clinic Notes [address], [facility] [address]. [place] [phone] Fax: IATIENT: WINIFRED CHRISTIAN [facility] #: [id number] #:[id number]: None StatedREFERRING PHYSICIAN: Self ReferralDOB: 1975DATE SEEN: [...] hours, Comment: 1 tab po 4 x daily.Maxalt-RELEASE AND TECHNICAL RECORDS CLERK 10 mg oral tablet, disintegrating (rizatriptan), 10 [...] sent with patient, medication was filled at [facility] in [place], [place].Premarin 0.9 mg oral tablet (conjugated estrogens), [...] KINDProcedure HistoryHysterectomy - vaginal * tonsillectomyHernia repair c9Tovjy BackNeck Surgery r7Bcymkb HistoryAlcohol Use: CurrentAlcohol Type: WineAlcohol Frequency: Other: [...] Request1. Patient was refilled on her Duragesic, [place], Soma, and gabapentin. She has one refill [...] the Botox treatment this time. TR:CLINECDD:2011 16:10DT:11/22/2011 16:25TED#:[id number] [Electronically Signed on 11.23.2011 11:40 AM] Diana Garcia MD </br> 11/19/2011 [ Electronically Signed on 11.23.2011 11:40 AM] Diana Garcia MD [facility] Ambulatory Depart Summary Ambulatory Depart Summary <%UDTHART_CLINIC_ HEADER_UDT%>[facility] [address] [place] [address], [address] [phone] <%END%> PERSON INFORMATION Name <%NAME%>WINIFRED CHRISTIAN<%END%> Age <%AGE%> 36 Years<%END%> <%%>1975<%END%> Sex <%GENDER%>Female<%END%> Language <%LANGUAGE%>Bulgarian<%END%> PCP <%PCP%>None, Stated<%END%> Marital Status <%MARITALSTAT%><%END%> Phone <%PHONE%> <%END%> Time Zone <%TIMEZONE%><%END%> MRN <%ALIASPMRN%>[id number]<%END%> Visit Id <%ALIASEVISITID%><%END%> Acct# <%ALIASEFIN NBR%>[id number]<%END%> Visit Reason <%RFV%>FOLLOW UP<%END%> Specialty <%SPECIALTY%><%END%> Enc Type <%ENCNTRTYPE%>[facility]<%END%> Med Service <%MEDSERVICE%>OUTPT-Outpatient/Hospital<%END%> Referred by <%REFERREDBY%><%END%> Track Group <%TRACKGROUP%>Clinic Discharge Process<%END%> Discharge <%DISCHDTTM%><%END%> Tracking Id <%TRACKINGID%><%END%> Checkout <%CHECKOUTDTTM%><%END%> Checkin <%CHECKINDTTM%><%END%> Acuity <%ACUITY%><%END%> Dispo Type <%DISDISP%><%END%> Arrival <%ARRIVALDTTM%>11/19/2011 3:18 PM<%END%> Reg Status <%REGSTATUS%><%END%> LOS <%LOSTRACK%><%END%> Address: <%ADDRESS%>[address] [facility] [address]<%END%> PHYS DOC NOTES<%PHYDOC%><%END%> PROVIDER INFORMATION <%PROVROLETBL%><%END%>VITALS INFORMATION [...] Oral, 3 times a day, Routed to: [facility] [address] Lidoderm , Topical, Every 24 hours Lortab 10/500 oral tablet 1 Tab, Oral, Every 6 hours, 1 tab po 4 x daily. Maxalt-RELEASE AND TECHNICAL RECORDS CLERK 10 mg oral tablet, disintegrating 10 mg, 1 Tab, Oral, Every 24 hours , Takes as needed for Migraine. Niaspan ER 1000 mg oral tablet, extended release 1 Tab, Oral, At bedtime [place] 10 mg-325 mg oral tablet 1 Tab, Oral, Every 4 hours, as needed, for pain , 2 Refills, Maximum of 6 daily, Printed OxyContin 10 mg oral tablet, extended release 10 mg, 1 Tab, Oral, Every 12 hours, Paper Script sent with patient, medication was filled at [facility] in [place], [place]. Premarin 0.9 mg oral tablet 1 [...] Migraine without Aura with Status Migrainosus<%END%> 11/19/2011 [facility] Procedure Reports Procedure Reports [address], [address]. [place] [phone] SYFUGHX: WINIFRED CHRISTIAN RMR #: [id number] #: [id number]: 1975DATE SEEN: 09/20/2011OTOX INJECTION PROCEDURE Identification of patient by nurse and physicianThe patient was identified by me as requested by Dr. Diana Garcia. Consent for procedureVital SignsPhysical ExaminationTEMP BP Pulse RR MAP O2 Sat 36.6138/9463950462.67 Blood Pressure Location: Left arm Oxygen Therapy: [...] Procedure note dictated by Prabha Randolph M.D. TR:[id number]:09/20/2011 15: 52DT:09/21/2011 21:51TED#:[id number] [Electronically Signed on 09.22.2011 07:25 am] Zulma Randolph MD </br> 09/20/2011 [ Electronically Signed on 09.22.2011 07:25 am] Zulma Randolph MD [facility] Ambulatory Depart Summary Ambulatory Depart Summary <%UDTHART_CLINIC_ HEADER_UDT%>[facility] [address] [place] [address], [address] [place] [address] <%END%> PERSON INFORMATION Name <%NAME%>WINIFRED CHRISTIAN<%END%> Age <%AGE%> 36 Years<%END%> <%%>1975<%END%> Sex <%GENDER%>Female<%END%> Language <%LANGUAGE%>Bulgarian<%END%> PCP <%PCP%>None, Stated<%END%> Marital Status <%MARITALSTAT%><%END%> Phone <%PHONE%> <%END%> Time Zone <%TIMEZONE%><%END%> MRN <%ALIASPMRN%>[id number]<%END%> Visit Id <%ALIASEVISITID%><%END%> Acct# <%ALIASEFIN NBR%>[id number]<%END%> Visit Reason <%RFV%>FOLLOW UP AFTER TRIGGER POINT<%END%> Specialty <%SPECIALTY%><%END%> Enc Type <%ENCNTRTYPE%>[facility]<%END%> Med Service <%MEDSERVICE%>OUTPT-Outpatient/Hospital<%END%> Referred by <%REFERREDBY%><%END%> Track Group <%TRACKGROUP%>Clinic Discharge Process<%END%> Discharge <%DISCHDTTM%><%END%> Tracking Id <%TRACKINGID%><%END%> Checkout <%CHECKOUTDTTM%><%END%> Checkin <%CHECKINDTTM%><%END%> Acuity <%ACUITY%><%END%> Dispo Type <%DISDISP%><%END%> Arrival <%ARRIVALDTTM%>09/20/2011 2:15 PM<%END%> Reg Status <%REGSTATUS%><%END%> LOS <%LOSTRACK%><%END%> Address: <%ADDRESS%>[address] [facility] [address]<%END%> PHYS DOC NOTES<%PHYDOC%><%END%> PROVIDER INFORMATION <%PROVROLETBL%><%END%>VITALS INFORMATION [...] 1 Tab, Every 6 hours, 0 Refills Maxalt-RELEASE AND TECHNICAL RECORDS CLERK 10 mg oral tablet, disintegrating 10 mg, [...] Follow up: <%FOLLOWUPTABLE%>With: Address: When: Diana Garcia [facility] 1, [address] [facility], [place] [address] [facility] (1) 11/19/2011 14:30:00 Comments: <%END%>DIAGNOSIS<%DIAGNOSIS%>Intractable Chronic Migraine without Aura with Status Migrainosus; Cervical myofascial pain syndrome<%END%> 09/20/2011 [facility] Amb Nurs Intake Event Amb Nurs Intake Event 09/20/2011 [facility] Office/ Clinic Notes Office/Clinic Notes [address], [address]. [place] [phone] CFELJGM: WINIFRED CHRISTIAN RMR #: [id number] #: [id number]: 1975DATE SEEN: 09/20/2011Chief ComplaintPatient is here for [...] hours, Comment: 1 tab po 4 x daily.Maxalt-RELEASE AND TECHNICAL RECORDS CLERK 10 mg oral tablet, disintegrating (rizatriptan), 10 [...] sent with patient, medication was filled at [facility] in [place], [place].Premarin 0.9 mg oral tablet (conjugated estrogens), [...] KIND Procedure HistoryHysterectomy - vaginal *tonsillectomyHernia repair s0Rzhlx BackNeck Surgery x8Eqwtxs HistoryAlcohol Use: CurrentAlcohol Type: WineAlcohol Frequency: Other: occ.Caffeine Use: CurrentCaffeine Type: SodaCaffeine Frequency: Other: occ.Current Tobacco Usage: DeniesRecreational Drug Use: DeniesPhysical ExaminationTEMP BP Pulse RR MAP O2 Sat 36.6138/ 8806569429.67Blood Pressure Location: Left arm Oxygen Therapy: Room [...] hours.TR:CLINECDD:09/20/2011 16:36 / 09/20/2011 16:38DT:09/22/2011 09:08 09/22/2011 09:32TED#:[id number] / [id number] [Electronically Signed on 09.23.2011 06:46 am] Diana Garcia MD </br> 09/20/2011 [ Electronically Signed on 09.23.2011 06:46 am] Diana Garcia MD [facility] Office/Clinic Notes Office/Clinic Notes Corrected copy[address] [place] [phone] QINAETV: WINIFRED CHRISTIAN R #: [id number] #:[id number]: 04/1975DATE SEEN: 08/31/2011Chief ComplaintNeck pain, back pain, [...] is scheduled to see a surgeon in [place] on September 06 for a consultation for [...] hours, Comment: 1 tab po 4 x daily.Maxalt-RELEASE AND TECHNICAL RECORDS CLERK 10 mg oral tablet, disintegrating (rizatriptan), 10 [...] well. Procedure HistoryHysterectomy - vaginal *tonsillectomyHernia repair u5Phchf BackNeck Surgery s6Dqkkib HistoryCurrent Tobacco Usage: DeniesEducation: CollegePatient denies any use of alcohol or street drugs. Patient does have an educational history of college. She does live with her . She does report difficulties in her ADL's. Living Situation: Home with spouse Physical ExaminationTEMP BP Pulse RR MAP O2 Sat 36.9124/06970873.67Blood Pressure Location: Right arm Weight Height BMI BSA 91.900 kg (202.60 lbs) 157.0 cm37.32.0020 w5Fjfgn: Standing digital Patient's pain scale is 4 [...] have plans to see a neurosurgeon in [place], [place], on September 06 for a consultation [...] this evening.TR: Tiffany: 09/08/2011 13:18:00DR: DE: JOB#: [id number] cc:Bryn Escamilla M.D., COLLIN Tillman, ph: TR:CLINECDD:08/31/2011 16:05DT:09/01/2011 09:02CR: 09/09/2011 16:14 msmTED#:[id number] [Electronically Signed on 09.13.2011 06:48 am] Diana Garcia MD </br> 08/31/2011 [ Electronically Signed on 09.13.2011 06:48 am] Diana Garcia MD [facility] Ambulatory Depart Summary Ambulatory Depart Summary <%UDTHART_CLINIC_ HEADER_UDT%>[facility]IC[facility] [address] [place] [address], [address] [address] <%END%> PERSON INFORMATION Name <%NAME%>WINIFRED CHRISTIAN Jhonny<%END%> Age <%AGE%> 36 Years<%END%> <%%>1975<%END%> Sex <%GENDER%>Female<%END%> Language <%LANGUAGE%>Bulgarian<%END%> PCP <%PCP%>None, Stated<%END%> Marital Status <%MARITALSTAT%><%END%> Phone <%PHONE%> <%END%> Time Zone <%TIMEZONE%><%END%> MRN <%ALIASPMRN%>[id number]<%END%> Visit Id <%ALIASEVISITID%><%END%> Acct# <%ALIASEFIN NBR%>[id number]<%END%> Visit Reason <%RFV%>EVAL NECK PAIN AND HEADACHES<%END%> Specialty <%SPECIALTY%><%END%> Enc Type <%ENCNTRTYPE%>[facility]<%END%> Med Service <%MEDSERVICE%>OUTPT-Outpatient/Hospital<%END%> Referred by <%REFERREDBY%><%END%> Track Group <%TRACKGROUP%>Clinic Discharge Process<%END%> Discharge <%DISCHDTTM%><%END%> Tracking Id <%TRACKINGID%><%END%> Checkout <%CHECKOUTDTTM%><%END%> Checkin <%CHECKINDTTM%><%END%> Acuity <%ACUITY%><%END%> Dispo Type <%DISDISP%><%END%> Arrival <%ARRIVALDTTM%>08/31/2011 1:41 PM<%END%> Reg Status <%REGSTATUS%><%END%> LOS <%LOSTRACK%><%END%> Address: <%ADDRESS%>[address] [facility] [address]<%END%> PHYS DOC NOTES<%PHYDOC%><%END%> PROVIDER INFORMATION <%PROVROLETBL%><%END%>VITALS INFORMATION [...] 1 Tab, Every 6 hours, 0 Refills Maxalt-RELEASE AND TECHNICAL RECORDS CLERK 10 mg oral tablet, disintegrating 10 mg, [...] up: <%FOLLOWUPTABLE%>With: Address: When: Diana Garcia [address] [place] [phone] [facility] ([facility] 09/20/2011 14:30:00 Comments: <%END%>DIAGNOSIS<%DIAGNOSIS%>Migraine; Pain in Back; Neck pain<%END%> 08/31/2011 [facility] Amb Nurs Intake w Hx Event Amb Nurs Intake w Hx Event 08/31/2011 [facility] Level of Functioning [facility] Level of Functioning [facility] 08/31/2011 [facility] Vital Signs Encounters Location Location Details Encounter Type Encounter Number Reason For Visit Attending Provider ADM Date DC Date Status Source [facility] [id number] EVAL NECK PAIN AND HEADACHES DIANA GARCIA 2011 Active [facility] ( Outpatient) [id number] EVAL NECK PAIN AND HEADACHES DIANA GARCIA 08/31/2011 08/31/2011 Active [facility] [id number] FOLLOW UP AFTER TRIGGER POINT DIANA GARCIA Active [facility] ( Outpatient) [id number] FOLLOW UP AFTER TRIGGER POINT DIANA GARCIA 09/20/2011 09/20/2011 [facility] [address] [facility] [id number] FOLLOW UP Diana Garcia [facility] [id number] FOLLOW UP DIANA GARCIA 11/19/2011 [facility] [id number] FOLLOW UP DIANA GARCIA 11/19/2011 11/19/2011 Active [facility] [id number] INJECTIONS DIANA GARCIA 01/14/2012 Active [facility] [id number] INJECTIONS DIANA GARCIA 01/1301/14/2012 Active [facility] [id number] 2 MONTH FOLLOW UP DIANA GARCIA 03/14/2012 Active [facility] [id number] 2 MONTH FOLLOW UP DIANA GARCIA 201103/14/2012 Active [facility] [id number] Folllow Up DIANA GARCIA 06/13/2012 Active [facility] [id number] FOLLLOW UP DIANA GARCIA 06/13/2012 06/13/2012 Active [facility] [id number] Follow Up/Medication DIANA GARCIA 10/05/2012 Active [facility] [id number] FOLLOW UP/MEDICATION DIANA GARCIA 10/05/2012 Active [facility] [address] [place] [address] [id number] INJECTION Diana Garcia 2012 Active [facility] [id number] INJECTION DIANA GARCIA 201210/06/2012 Active [facility] [address] [facility] [id number] Follow Up / Botox Injection Scheduled Diana Garcia 10/27/2012 Active [facility] [id number] Follow Up / Botox Injection Scheduled DIANA GARCIA 12/29/2012 12/29/2012 [facility] [address] [place] [address] [id number] FOLLOW UP AFTER BOTOX 12-29-12 Diana Garcia 2013 2013 Active [facility] [id number] MED MANAGEMENT/ POSSIBLE INJ/AND BOTOX EVAL DIANA GARCIA 05/10/2013 Active [facility] [address] [facility] [id number] 1 MONTH MANAGEMENT Diana Garcia 06/07/2013 Active [facility] [address] [facility] [id number] 4 MONTH MED MANAGMENT Diana Garcia 06/14/2013 [facility] [address] [facility] [id number] FOLLOW UP Diana Garcia Active [facility] Care Procedures Plan of Care Social History Assessment and Plan Family History Value Date Source Advance Directives Order Name Results Value Date Source
[2016-10-16] MEDS ORDERED: cefTRIAXone 1 GM (ROCEPHIN) VIAL IM ONE (01:50)
[2016-10-16] MEDS ORDERED: LORazepam 1 MG (ATIVAN) TABLET PO ONE (01:50)
[2016-10-16] MEDS ORDERED: LIDOCAINE PF 1% (XYLOCAINE) 2 ML VIAL INJ ONE (01:52)
[2016-10-16] MEDS ORDERED: CEPH500T PO (01:56)
[2016-10-16 02:18] VITALS: BP 151/95
== END 2016-10-16 02:36 | disposition home or self-care (01) ==
LOC: ED 01:27
DX: I80.8 Phlebitis and thrombophlebitis of other sites (principal)
CPT/HCPCS: 96372; 99282; A9270; J0696; J2001; 99283

== ENCOUNTER 2016-10-31 06:43 | Emergency (ER) | payer MEDICARE, MEDICAID ==
[~2016-10-31] VITALS: Ht 157.5 cm; Wt 71.0 kg
[~2016-10-31 06:43] MED LIST changes: -LIDOCAINE PF 2% (XYLOCAINE) 5 ML VIAL INJ ONE; -LORazepam 2 MG/ML (ATIVAN) 1 ML VIAL IV ONE; -LORazepam 2 MG/ML (ATIVAN) 1 ML VIAL ONE; -MAGNESIUM SULFATE 1GM VIAL 2 GM, THIAMINE INJ 100 MG, MULTIVITAMIN INJ 10 ML in D5LR 1,... IV SCH; -PROPOFOL 10 MG/ML IV ONE; -ROCURONIUM 50 MG/5 ML (ZEMURON) VIAL IV ONE; -SODIUM CHLORIDE FLUSH 3 ML SYR IV ONE; -SUCCINYLCHOLINE 20 MG/ML 10 ML VIAL ONE
--- OUTSIDE RECORDS SUMMARY | 2016-10-31 06:52 | XMS REPORT | Continuity of Care Document ---
Author Author Brandie Diego Address Unknown Phone Unavailable Care Team Providers Care Hospitality Director Name Role Phone [employer] Unavailable Unavailable Problems [...] last 1 month. 2013 [facility] Buffalo 10 mg-325 mg oral tablet PO Active Max of 6 a day. Each refill must last 1 month. 2013 [facility] gabapentin 300 mg oral capsule PO Active GARCIA 2013 [facility] [place] 10 mg-325 mg oral tablet PO Discontinued [...] PO Discontinued GARCIA 10/05/2012 [facility] [place] 10 mg-325 mg oral tablet PO Completed Max of 6 daily GARCIA 10/05/2012 [facility] fentanyl 1200 mcg buccal film BUCC Discontinued 1 patch every three days 06/13/2012 [facility] [place] 10 mg-325 mg oral tablet PO Discontinued [...] untill 04/14/2012 GARCIA 03/14/2012 [facility] [place] 10 mg-325 mg oral tablet PO Completed Maximum of 6 daily GARCIA 03/14/2012 [facility] Duragesic-12 transdermal film, extended release TOP Discontinued GARCIA 03/14/2012 [facility] Soma 350 mg oral tablet PO Canceled INFORMATION 02/20/2012 [facility] Duragesic-12 transdermal film, extended release TOP Discontinued GARCIA 02/20/2012 [facility] [place] 10 mg-325 mg oral tablet PO Discontinued [...] TOP Discontinued GARCIA 11/19/2011 [facility] [place] 10 mg-325 mg oral tablet PO Discontinued [...] oral tablet, extended release Discontinued INFORMATION 09/02/2011 [facility] Maxalt-MOLD CUTTING MACHINE OPERATOR 10 mg oral tablet, disintegrating Documented 08/31/2011 [facility] Soma 350 mg oral tablet PO Completed 08/31/2011 [facility] Lortab 10/500 oral tablet Discontinued 08/31/2011 [facility] Lidoderm TOP Documented 08/31/2011 [facility] aspirin 81 mg oral enteric coated tablet Documented 08/31/2011 [facility] Singulair 10 mg oral tablet PO Documented 08/31/2011 [facility] Niaspan ER 1000 mg oral tablet, extended release PO Documented 08/31/2011 [facility] Premarin 0.9 mg oral tablet PO Documented 08/31/2011 [facility] Celexa 40 mg oral tablet PO Documented 08/31/2011 [facility] Abilify 10 mg oral tablet PO Documented 08/31/2011 [facility] PO [facility] Allergies, Adverse Reactions, Alerts Substance Category Reaction Severity Reaction type Status Date Reported Comments Source Seasonale Datatype(AL1.2)-Environment congestion Allergy ACTIVE 12/29/2012 [facility] Immunizations Immunization Date Given Site Status Last Updated Comments Source onabotulinumtoxinA 12/29/2012 Neck completed [facility] onabotulinumtoxinA 06/13/2012 Face completed [facility] tetanus toxoid 05/06/2012 Immunization, History completed MIGNERY [facility] onabotulinumtoxinA 01/14/2012 Neck completed [facility] onabotulinumtoxinA 09/20/2011 Face completed IDICULLA [facility] influenza virus vaccine 05/01/2011 Immunization, History completed [facility] tetanus toxoid 04/06/2009 Immunization, History completed [facility] Results Order Name Results Value Reference Range Date Interpretation Comments Source Office/Clinic Notes Office/Clinic Notes This nurse called [facility], spoke to Clary, clarification on Buffalo 10/325mg, 1 tab, po, q 4 hrs [...] above listing of medications was verified through [facility] when filled and if there are any refills left. Dr. Garcia is expected to return mid-December, at that time, if no futher complications , we would be glad to take over medications ,if needed. 09/28/2013 [facility] Office/Clinic Notes Office/Clinic Notes This nurse attempted to call Winifred regarding Dr. Garcia not able to write scipts at this time due to extended medical leave, no answer and not able to leave a message due to phone mail was full. 09/25/2013 [facility] Office/Clinic Notes Office/Clinic Notes This nurse called [facility] in [place], [place], spoke to Josh , per Dr. Piotr MD, phone order, read back and verified, Buffalo 10/325, 1 Tab, PO, every 4 hours, Max of 6 daily, Qty 180, x1 refill. 06/19/2013 [facility] Office/Clinic Notes Office/Clinic Notes This nurse called and spoke to Winifred, notifying her that Dr. Garcia approved her medication refills when due and requested what pharmacy needed to be called to. Winifred requested [facility] in [facility] at [phone]. This nurse then called [facility] in [facility], per Dr. Piotr MD , Soma 350mg, 1 Tab, PO, QID, Qty 120, x 3 refills. 06/08/2013 [facility] Office/Clinic Notes Office/Clinic Notes This nurse called Dr. Piotr MD, notifying her that Winifred was requesting refills on her medication, Soma, and would need Buffalo and Gabapentin filled on 06/20/13. Dr. Piotr MD, gave a phone order that it was ok to refill as before on her medications Soma, Buffalo and Gabapentin when they are due. This nurse showed understanding and was appreciative of information. 06/08/2013 [facility] Office/Clinic Notes Office/Clinic Notes Mailed logistic[employer] mileage reimbursement sheet to [address] [place] [address], [address], [place] [address] 05/15/2013 [facility] Office/Clinic Notes Office/Clinic Notes [facility] [address] [address] [address] [place] [address] PATIENT: WINIFRED CHRISTIAN MR #: [id number] PCP: None, Stated REFERRING PHYSICIAN: Self, Referral [...] neck and upper back. She also takes Buffalo 10/325, 1 tab every 4 hours as [...] day Lidoderm (lidocaine topical), Every 24 hours Maxalt-MOLD CUTTING MACHINE OPERATOR 10 mg oral tablet, disintegrating (rizatriptan), 10 mg, Every 24 hours, Comment: Takes as needed for Migraine. Niaspan ER 1000 mg oral tablet, extended release (niacin), 1 Tab, At bedtime Buffalo 10 mg-325 mg oral tablet (acetaminophen-hydrocodone), 1 [...] Thank you for your continued support. TR: [id number] JG#: [id number] [Electronically Signed on 05.14.2013 03:43 PM] Diana Garcia MD </br> 05/10/2013 [Electronically Signed on 05.14.2013 03:43 PM] Diana Garcia MD [facility] Office/Clinic Notes Office/Clinic Notes This nurse faxed Botox Hotline for approval 300 units for muscle spasticity, 728.85, CPT 93997, to be done in office setting, waiting for approval authorization. 05/10/2013 [facility] Office/Clinic Notes Office/Clinic Notes This nurse placed Logistic Log for gas mileage for Dr. Garcia to sign. 05/10/2013 [facility] Ambulatory Depart Summary Ambulatory Depart Summary [address] [address] [address] [place] [address] PERSON INFORMATION Name WINIFRED CHRISTIAN Age 38 Years 1975 12:00 AM Sex Female Language Citizen Of [place] PCP None, Stated Marital Status Legally Time Zone N [id number] Visit Id Visit Reason MED MANAGEMENT/ POSSIBLE INJ/AND BOTOX EVAL Specialty Enc Type [facility] Med Service OUTPT-Outpatient/Hospital Referred by Track Group Clinic Discharge Process Discharge Tracking Id Checkout Checkin Acuity Dispo Type Arrival 05/10/2013 1:01 PM Reg Status LOS Address: [address] [place] [address] [facility] DOC NOTES PROVIDER INFORMATION VITALS INFORMATION Height: [...] day Lidoderm , Topical, Every 24 hours Maxalt-MOLD CUTTING MACHINE OPERATOR 10 mg oral tablet, disintegrating 10 mg, Oral, Every 24 hours, Takes as needed for Migraine. Niaspan ER 1000 mg oral tablet, extended release 1 Tab, Oral, At bedtime Buffalo 10 mg-325 mg oral tablet 1 Tab, [...] Follow up: With: Address: When: Diana Garcia [address] [place] [address] [id number] [facility] (1) 06/07/2013 13:00:00 Comments: DIAGNOSIS Cervical myofascial pain syndrome; Chronic mid back pain; Intractable Chronic Migraine without Aura with Status Migrainosus 05/10/2013 [facility] Amb Nurs Intake Event Amb Nurs Intake Event 2012 [facility] Office/Clinic Notes Office/Clinic Notes This nurse faxed [facility] reimbursement form signed by Dr. Piotr MD, for Winifred Rod. 02/28/2013 [facility] Office/Clinic Notes Office/Clinic Notes [facility] [address] [place] [address] [address] [place] [address] PATIENT: WINIFRED CHRISTIAN MR #: [id number] PCP: None, Stated REFERRING PHYSICIAN: Self, Referral [...] day Lidoderm (lidocaine topical), Every 24 hours Maxalt-MOLD CUTTING MACHINE OPERATOR 10 mg oral tablet, disintegrating (rizatriptan), 10 [...] (346.73) Plan Medication changes this visit: [place] 10 mg-325 mg oral tablet, 1 Tab, [...] Thank you for your continued support. TR: [id number] JG#: [id number] [Electronically Signed on 02.16.2013 04:43 AM] Diana Garcia MD </br> 2013 [Electronically Signed on 02.16.2013 04:43 AM] Diana Garcia MD [facility] Ambulatory Depart Summary Ambulatory Depart Summary [facility] [address] [place] [phone] PERSON INFORMATION Name WINIFRED CHRISTIAN Age 38 Years 1975 Sex Female Language Citizen [place] PCP None, Stated Marital Status Legally Time Zone Visit Id Visit Reason FOLLOW UP AFTER BOTOX 12-29-12 Specialty Enc Type [facility] Med Service OUTPT-Outpatient/Hospital Referred by Track Group Clinic Discharge Process Discharge Tracking Id Checkout Checkin Acuity Dispo Type Arrival 2013 1:27 PM Reg Status LOS Address: [address] [place] [address] PHYS DOC NOTES PROVIDER INFORMATION VITALS INFORMATION [...] Printed Lidoderm , Topical, Every 24 hours Maxalt-MOLD CUTTING MACHINE OPERATOR 10 mg oral tablet, disintegrating 10 mg, Oral, Every 24 hours, Takes as needed for Migraine. Niaspan ER 1000 mg oral tablet, extended release 1 Tab, Oral, At bedtime Buffalo 10 mg-325 mg oral tablet 1 Tab, [...] Follow up: With: Address: When: Diana Garcia [address] [place] [address] [place] [address] Business (1) 06/14/2013 13:45:00 Comments: DIAGNOSIS 2013 [facility] Amb Nurs Intake Event Amb Nurs Intake Event 2012 [facility] Amb Nurs Intake w Hx Event Amb Nurs Intake w Hx Event 12/29/2012 [facility] Level of Functioning Grid-Clinic Level of Functioning Grid-Clinic 12/29/2012 [facility] Procedure Reports Procedure Reports [facility] [address] [place] [address] [place] [phone] PATIENT: WINIFRED CHRISTIAN MR #: [id number] PCP: None, Stated REFERRING PHYSICIAN: Self, Referral [...] for your continued support. TR: SONAM JG#: [id number] [Electronically Signed on 01.05.2013 04:03 PM] Diana Garcia MD </br> 12/29/2012 [Electronically Signed on 01.05.2013 04:03 PM] Diana Garcia MD [facility] Office/Clinic Notes Office/Clinic Notes [facility] [address] [facility] [address] [address] [address] [place] [address] PATIENT: WINIFRED CHRISTIAN MR #: [id number] PCP: None, Stated REFERRING PHYSICIAN: Self, Referral [...] day Lidoderm (lidocaine topical), Every 24 hours Maxalt-MOLD CUTTING MACHINE OPERATOR 10 mg oral tablet, disintegrating (rizatriptan), 10 mg, Every 24 hours, Comment: Takes as needed for Migraine. Niaspan ER 1000 mg oral tablet, extended release (niacin), 1 Tab, At bedtime Buffalo 10 mg-325 mg oral tablet (acetaminophen-hydrocodone), 1 [...] pain. Plan Medication changes this visit: Refill Buffalo 10 mg-325 mg oral tablet, 1 Tab, [...] for your continued support. TR: CLINEC JG#: [id number] [Electronically Signed on 10.24.2012 10:06 AM] Diana Garcia MD </br> 10/07/2012 [Electronically Signed on 10.24.2012 10:06 AM] Diana Garcia MD [facility] Procedure Reports Procedure Reports [address] [address] PATIENT: WINIFRED CHRISTIAN MR #: [id number] PCP: None, Stated REFERRING PHYSICIAN: Self, Referral [...] last night. She is driving back to [place], [place] , today and asks for medication [...] for your continued support. TR: SONAM JG#: [id number] [Electronically Signed on 10.13.2012 04:35 PM] Diana Garcia MD </br> 10/06/2012 [Electronically Signed on 10.13.2012 04:35 PM] Diana Garcia MD [facility] Amb Nurs Intake Event Amb Nurs Intake Event 2012 [facility] Office/Clinic Notes Office/Clinic Notes This nurse received and Dr. Garcia notified of Winifred needing to go to Emergency Room 3 times since last clinical visit, documentation provided. 10/06/2012 [facility] Ambulatory Depart Summary Ambulatory Depart Summary [address] [place] [phone] PERSON INFORMATION Name WINIFRED CHRISTIAN Age 37 Years 1975 Sex Female Language Citizen [place] PCP None, Stated Marital Status Legally Time Zone Visit Id Visit Reason Follow Up/Medication Specialty Enc Type [facility] Med Service OUTPT-Outpatient/Hospital Referred by Track Group Clinic Discharge Process Discharge Tracking Id Checkout Checkin Acuity Dispo Type Arrival 10/05/2012 1:21 PM Reg Status LOS Address: [address] [place] [address] PHYS DOC NOTES PROVIDER INFORMATION VITALS INFORMATION [...] Printed Lidoderm , Topical, Every 24 hours Maxalt-MOLD CUTTING MACHINE OPERATOR 10 mg oral tablet, disintegrating 10 mg, Oral, Every 24 hours, Takes as needed for Migraine. Niaspan ER 1000 mg oral tablet, extended release 1 Tab, Oral, At bedtime Buffalo 10 mg-325 mg oral tablet 1 Tab, [...] Follow up: With: Address: When: Diana Garcia [address] [place] [address] [facility] (1) 10/27/2012 15:00:00 Comments: DIAGNOSIS Muscle spasms of neck; Back pain; Cervical myofascial pain syndrome 10/05/2012 [facility] Amb Nurs Intake Event Amb Nurs Intake Event 2012 [facility] Office/Clinic Notes Office/Clinic Notes This nurse called [facility], spoke to Nicole, per Dr. Garcia, read back and verified, "Ok to refill this Buffalo early this time only." Nicole showed understanding and was appreciative of call. This nurse then called and left message on phone mail for Winifred, notifying her that Buffalo would be filled early this time only and that Dr. Garcia needed clinical documentation from Dr. Miner after seen. 08/04/2012 [facility] Office/Clinic Notes Office/Clinic Notes This nurse called in script for refill of Soma, had called Prior Authroization, it was ok'd and to have pharmacy re-send for refill, message left on phone mail of [facility] at [facility]. 07/14/2012 [facility] Office/Clinic Notes Office/Clinic Notes [facility] [address] [address] [address] [place] [address] PATIENT: WINIFRED CHRISTIAN MR #: [id number] PCP: None Stated REFERRING PHYSICIAN: Self Referral [...] day Lidoderm (lidocaine topical), Every 24 hours Maxalt-MOLD CUTTING MACHINE OPERATOR 10 mg oral tablet, disintegrating (rizatriptan), 10 mg, Every 24 hours, Comment: Takes as needed for Migraine. Niaspan ER 1000 mg oral tablet, extended release (niacin), 1 Tab, At bedtime Buffalo 10 mg-325 mg oral tablet (acetaminophen-hydrocodone), 1 [...] TEMP BP Pulse RR MAP O2 Sat 36.3126/[id number] Blood Pressure Location: Right arm Oxygen Therapy: [...] waste) Location: Muscles/Sites Injected A - Bilateral Supervisor Sound Technician - 10 units divided in 2 sites [...] 17:00 DE: 06/14/2012 04:51 CR: 06/20/2012 15:21 [facility] JOB#: [id number] [Electronically Signed on 06.29.2012 06:07 PM] Diana Garcia MD </br> 06/20/2012 [Electronically Signed on 06.29.2012 06:07 PM] Diana Garcia MD [facility] Ambulatory Depart Summary Ambulatory Depart Summary <%UDTHART_CLINIC_HEADER_UDT%>[address] [address] <%END%> PERSON INFORMATION Name <%NAME%>WINIFRED CHRISTIAN<%END%> Age <%AGE%> 37 Years<%END%> <%%>1975<%END%> Sex <%GENDER%>Female<%END%> Language <%LANGUAGE%>Citizen Of [place]<%END%> PCP <%PCP%>None, Stated<%END%> Marital Status <%MARITALSTAT%><%END%> Phone <%PHONE%> <%END%> Time Zone <%TIMEZONE%><%END%> MRN <%ALIASPMRN%>[id number]<%END%> Visit Id <%ALIASEVISITID%><%END%> Acct# <%ALIASEFIN NBR%>[id number]<%END%> Visit Reason <%RFV%>Folllow Up<%END%> Specialty <%SPECIALTY%><%END%> Enc Type <%ENCNTRTYPE%>[facility]<%END%> Med Service <%MEDSERVICE%>OUTPT-Outpatient/Hospital<%END%> Referred by <%REFERREDBY%><%END%> Track Group <%TRACKGROUP%>Clinic Discharge Process<%END%> Discharge <%DISCHDTTM%><%END%> Tracking Id <%TRACKINGID%><%END%> Checkout <%CHECKOUTDTTM%><%END%> Checkin <%CHECKINDTTM%><%END%> Acuity <%ACUITY%><%END%> Dispo Type <%DISDISP%><%END%> Arrival <%ARRIVALDTTM%>06/13/2012 1:33 PM<%END%> Reg Status <%REGSTATUS%><%END%> LOS <%LOSTRACK%><%END%> Address: <%ADDRESS%>[address] [facility] [place] [address]<%END%> PHYS DOC NOTES<%PHYDOC%><%END%> PROVIDER INFORMATION <%PROVROLETBL%><%END%>VITALS INFORMATION [...] 06/13/2012 4:00 PM Nurse PBB Level 4 (99-95) - 31076 Evaluation and Management Completed 06/13/2012 4:00 PM Diana Garcia MD 06/13/2012 3:54 PM Office Visit Level 5 Est - 95182 Evaluation and Management Completed 06/13/2012 3:54 PM [...] Printed Lidoderm , Topical, Every 24 hours Maxalt-MOLD CUTTING MACHINE OPERATOR 10 mg oral tablet, disintegrating 10 mg, 1 Tab, Oral, Every 24 hours , Takes as needed for Migraine. Niaspan ER 1000 mg oral tablet, extended release 1 Tab, Oral, At bedtime Buffalo 10 mg-325 mg oral tablet 1 Tab, [...] up: <%FOLLOWUPTABLE%>With: Address: When: Diana Garcia [address] [address] [address] [place] [address] Business ([employer] 10/06/2012 13:00:00 Comments: <%END%>DIAGNOSIS<%DIAGNOSIS%>Chronic mid back pain; Cervical myofascial pain syndrome; Intractable Chronic Migraine without Aura with Status Migrainosus ; Muscle spasms of neck; Neuropathic pain<%END%> 06/14/2012 [facility] Amb Nurs Intake Event Amb Nurs Intake Event 06/13/2012 [facility] Office/ Clinic Notes Office/Clinic Notes [address] [address] [address] [place] [phone] YQHRUQX: WINIFRED CHRISTIAN R #: [id number]: None StatedREFERRING PHYSICIAN: Self ReferralDOB: 1975DATE SEEN: [...] times a dayLidoderm (lidocaine topical), Every 24 hoursMaxalt-MOLD CUTTING MACHINE OPERATOR 10 mg oral tablet, disintegrating ( rizatriptan), [...] KINDProcedure HistoryHysterectomy - vaginal * tonsillectomyHernia repair [id number] BackMock Surgery [id number] HistoryAlcohol Use: CurrentAlcohol Type: WineAlcohol Frequency: Other: occ.Caffeine Use: CurrentCaffeine Type: SodaCaffeine Frequency: Other: occ.Current Tobacco Usage : DeniesRecreational Drug Use: DeniesPhysical ExaminationTEMP BP Pulse RR MAP O2 Sat 36.7120/314667789.33Blood Pressure Location: Right arm Oxygen Therapy: Room [...] / 03/24/2012 14:09DT:03/22/2012 14:37 / 03/29/2012 12: 02TED#:[id number] / [id number] [Electronically Signed on 03.29.2012 02:21 PM] Diana Garcia MD </br> 03/21/2012 [ Electronically Signed on 03.29.2012 02:21 PM] Diana Garcia MD [facility] Ambulatory Depart Summary Ambulatory Depart Summary <%UDTHART_CLINIC_ HEADER_UDT%>[facility] [address] [place] [phone] <%END%> PERSON INFORMATION Name <%NAME%>WINIFRED CHRISTIAN<%END%> Age <%AGE%> 37 Years<%END%> <%%>1975<%END%> Sex <%GENDER%>Female<%END%> Language <%LANGUAGE%>Citizen Of [place]<%END%> PCP <%PCP%>None, Stated<%END%> Marital Status <%MARITALSTAT%><%END%> Phone <%PHONE%> <%END%> Time Zone <%TIMEZONE%><%END%> MRN <%ALIASPMRN%>[id number]<%END%> Visit Id <%ALIASEVISITID%><%END%> Acct# <%ALIASEFIN NBR%>[id number]<%END%> Visit Reason <%RFV%>2 MONTH FOLLOW UP<%END%> Specialty <%SPECIALTY%><%END%> Enc Type <%ENCNTRTYPE%>[facility]<%END%> Med Service <%MEDSERVICE%>OUTPT-Outpatient/Hospital<%END%> Referred by <%REFERREDBY%><%END%> Track Group <%TRACKGROUP%>Clinic Discharge Process<%END%> Discharge <%DISCHDTTM%><%END%> Tracking Id <%TRACKINGID%><%END%> Checkout <%CHECKOUTDTTM%><%END%> Checkin <%CHECKINDTTM%><%END%> Acuity <%ACUITY%><%END%> Dispo Type <%DISDISP%><%END%> Arrival <%ARRIVALDTTM%>03/14/2012 1:45 PM<%END%> Reg Status <%REGSTATUS%><%END%> LOS <%LOSTRACK%><%END%> Address: <%ADDRESS%>[address] [facility] [place] [facility] [place] [address]<%END%> PHYS DOC NOTES<%PHYDOC%><%END%> PROVIDER INFORMATION <%PROVROLETBL%><%END%>VITALS INFORMATION <%UDTHART_DEPART_CLIN_VITALS%>Height: 5ft 1.8in Weight: 203.93 lbs Temp: 98.1 F Heart Rate: 80 Respiratory: 18 O2 Sat: BP: 120/98 <%END%>LOCATION INFORMATION <%LOCTBL%>Arrival Nurse Unit Room Bed <%END%>ORDERS INFORMATION <%ORDNRESTBL%>Start Time Order Type Status Stop Time Provider 03/14/2012 3:17 PM Nurse PBB Level 3 (95-15) - 96153 Evaluation and Management Completed 03/14/2012 3:17 PM [...] Refills Lidoderm , Topical, Every 24 hours Maxalt-MOLD CUTTING MACHINE OPERATOR 10 mg oral tablet, disintegrating 10 mg, 1 Tab, Oral, Every 24 hours , Takes as needed for Migraine. Niaspan ER 1000 mg oral tablet, extended release 1 Tab, Oral, At bedtime Buffalo 10 mg-325 mg oral tablet 1 Tab, Oral, Every 4 hours, as needed, for pain , 2 Refills, Maximum of 6 daily Premarin 0.9 mg oral tablet 1 Tab, Oral, Daily Singulair 10 mg oral tablet 1 Tab, Oral, Every evening<%END%>DISCHARGE INFORMATION Discharge Disposition: <%DISDISP%><%END%> Discharge Location: <% DISLOC%><%END%>PATIENT EDUCATION INFORMATION Instructions: <%DISINSTRUCT%> <%END%> Follow up: <%FOLLOWUPTABLE%>With: Address: When: Diana Garcia [address] [place] [address] Business (1) 06/22/2012 13:15:00 Comments: <%END%>DIAGNOSIS<%DIAGNOSIS%>Muscle spasms of neck; Intractable Chronic Migraine without Aura with Status Migrainosus; Back pain; Neuropathic pain<%END% > 03/14/2012 [facility] Amb Nurs Intake Event Amb Nurs Intake Event 03/14/2012 [facility] Ambulatory Depart Summary Ambulatory Depart Summary <%UDTHART_CLINIC_HEADER_UDT%>[facility] [address] [place] [address], [address] [place] [address] <%END%> PERSON INFORMATION Name <%NAME%>WINIFRED CHRISTIAN<%END%> Age <%AGE%> 36 Years<%END%> <%%>1975<%END%> Sex <%GENDER%>Female<%END%> Language <%LANGUAGE%>Citizen Of [place]<%END%> PCP <%PCP%>None, Stated<%END%> Marital Status <%MARITALSTAT%><%END%> Phone <%PHONE%> <%END%> Time Zone <%TIMEZONE%><%END%> MRN <%ALIASPMRN%>[id number]<%END%> Visit Id <%ALIASEVISITID%><%END%> Acct# <%ALIASEFIN NBR%>[id number]<%END%> Visit Reason <%RFV%>INJECTIONS<%END%> Specialty <%SPECIALTY%><%END%> Enc Type <%ENCNTRTYPE%>[facility]<%END%> Med Service <%MEDSERVICE%>OUTPT-Outpatient/Hospital<%END%> Referred by <%REFERREDBY%><%END%> Track Group <%TRACKGROUP%>Clinic Discharge Process<%END%> Discharge <%DISCHDTTM%><%END%> Tracking Id <%TRACKINGID%><%END%> Checkout <%CHECKOUTDTTM%><%END%> Checkin <%CHECKINDTTM%><%END%> Acuity <%ACUITY%><%END%> Dispo Type <%DISDISP%><%END%> Arrival <%ARRIVALDTTM%>01/14/2012 1:42 PM<%END%> Reg Status <%REGSTATUS%><%END%> LOS <%LOSTRACK%><%END%> Address: <%ADDRESS%>[address] [facility] [place] [facility] [place] [address]<%END%> PHYS DOC NOTES<%PHYDOC%><%END%> PROVIDER INFORMATION <%PROVROLETBL%><%END%>VITALS INFORMATION [...] hours, 1 tab po 4 x daily. Maxalt-MOLD CUTTING MACHINE OPERATOR 10 mg oral tablet, disintegrating 10 mg, 1 Tab, Oral, Every 24 hours , Takes as needed for Migraine. Niaspan ER 1000 mg oral tablet, extended release 1 Tab, Oral, At bedtime Buffalo 10 mg-325 mg oral tablet 1 Tab, Oral, Every 4 hours, as needed, for pain , 2 Refills, Maximum of 6 daily OxyContin 10 mg oral tablet, extended release 10 mg, 1 Tab, Oral, Every 12 hours, Paper Script sent with patient, medication was filled at [facility] in [place], [place]. Premarin 0.9 mg oral tablet 1 [...] Cervical myofascial pain syndrome; Back pain<%END%> 01/14/2012 [facility] Prescription Pickup Prescription Pickup 01/14/2012 [facility] Amb Nurs Intake Event Amb Nurs Intake Event 01/14/2012 [facility] Office/Clinic Notes Office/Clinic Notes [address], [address]. [place] [phone] PBRRLTU: WINIFRED CHRISTIAN R #: [id number]: None StatedREFERRING PHYSICIAN: Self ReferralDOB : 1975DATE [...] hours, Comment: 1 tab po 4 x daily.Maxalt-MOLD CUTTING MACHINE OPERATOR 10 mg oral tablet, disintegrating (rizatriptan), 10 [...] sent with patient, [facility] in [place], [place].Premarin 0.9 mg oral tablet (conjugated estrogens), [...] KIND Procedure HistoryHysterectomy - vaginal *tonsillectomyHernia repair m5Ofkft BackNeck Surgery r3Dmhvuz HistoryAlcohol Use: CurrentAlcohol Type: WineAlcohol Frequency: Other: occ.Caffeine Use: CurrentCaffeine Type: SodaCaffeine Frequency: Other: occ.Current Tobacco Usage: DeniesRecreational Drug Use: DeniesPhysical ExaminationTEMP BP Pulse RR MAP O2 Sat 36.6112/ 200632288.00Blood Pressure Location: Left arm Oxygen Therapy: Room air Weight Height BMI BSA 92.5 kg (203.93 lbs)157.0 cm37.52.0085 x3Hhpyn: Standing digital Patient is an obese 36-year-old [...] sent with patient, medication was filled at [facility] in [place], [place].Soma 350 mg oral tablet, 350 mg=1 [...] her stretching and strengthening program. TR:CLINECDD:01/14/2012 15:16DT:01/17/2012 12:40TED#:[id number] [Electronically Signed on 01.31.2012 09:35 AM] Diana Garcia MD </br> 01/14/2012 [ Electronically Signed on 01.31.2012 09:35 AM] Diana Garcia MD [facility] Amb Nurs Intake Event Amb Nurs Intake Event 11/23/2011 [facility] Office/Clinic Notes Office/Clinic Notes [address], [facility] [address]. [place] [phone] Fax: WATIENT: WINIFRED CHRISTIAN [facility] #: [id number] #:[id number]: None StatedREFERRING PHYSICIAN: Self ReferralDOB: 1975DATE SEEN: [...] hours, Comment: 1 tab po 4 x daily.Maxalt-MOLD CUTTING MACHINE OPERATOR 10 mg oral tablet, disintegrating (rizatriptan), 10 [...] sent with patient, medication was filled at [facility] in [place], [place].Premarin 0.9 mg oral tablet (conjugated estrogens), [...] KINDProcedure HistoryHysterectomy - vaginal * tonsillectomyHernia repair u7Twlnz BackNeck Surgery h8Vkayia HistoryAlcohol Use: CurrentAlcohol Type: WineAlcohol Frequency: Other: [...] Request1. Patient was refilled on her Duragesic, Buffalo, Soma, and gabapentin. She has one refill [...] the Botox treatment this time. TR:CLINECDD:2011 16:10DT:11/22/2011 16:25TED#:[id number] [Electronically Signed on 11.23.2011 11:40 AM] Diana Garcia MD </br> 11/19/2011 [ Electronically Signed on 11.23.2011 11:40 AM] Diana Garcia MD [facility] Ambulatory Depart Summary Ambulatory Depart Summary <%UDTHART_CLINIC_ HEADER_UDT%>[facility] [address] [place] [address], [address] [phone] <%END%> PERSON INFORMATION Name <%NAME%>WINIFRED CHRISTIAN<%END%> Age <%AGE%> 36 Years<%END%> <%%>1975<%END%> Sex <%GENDER%>Female<%END%> Language <%LANGUAGE%>Citizen Of [place]<%END%> PCP <%PCP%>None, Stated<%END%> Marital Status <%MARITALSTAT%><%END%> Phone <%PHONE%> <%END%> Time Zone <%TIMEZONE%><%END%> MRN <%ALIASPMRN%>[id number]<%END%> Visit Id <%ALIASEVISITID%><%END%> Acct# <%ALIASEFIN NBR%>[id number]<%END%> Visit Reason <%RFV%>FOLLOW UP<%END%> Specialty <%SPECIALTY%><%END%> Enc Type <%ENCNTRTYPE%>[facility]<%END%> Med Service <%MEDSERVICE%>OUTPT-Outpatient/Hospital<%END%> Referred by <%REFERREDBY%><%END%> Track Group <%TRACKGROUP%>Clinic Discharge Process<%END%> Discharge <%DISCHDTTM%><%END%> Tracking Id <%TRACKINGID%><%END%> Checkout <%CHECKOUTDTTM%><%END%> Checkin <%CHECKINDTTM%><%END%> Acuity <%ACUITY%><%END%> Dispo Type <%DISDISP%><%END%> Arrival <%ARRIVALDTTM%>11/19/2011 3:18 PM<%END%> Reg Status <%REGSTATUS%><%END%> LOS <%LOSTRACK%><%END%> Address: <%ADDRESS%>[address] [facility] [place] [place] [address]<%END%> PHYS DOC NOTES<%PHYDOC%><%END%> PROVIDER INFORMATION <%PROVROLETBL%><%END%>VITALS INFORMATION [...] Oral, 3 times a day, Routed to: [facility] [address] Lidoderm , Topical, Every 24 hours Lortab 10/500 oral tablet 1 Tab, Oral, Every 6 hours, 1 tab po 4 x daily. Maxalt-MOLD CUTTING MACHINE OPERATOR 10 mg oral tablet, disintegrating 10 mg, 1 Tab, Oral, Every 24 hours , Takes as needed for Migraine. Niaspan ER 1000 mg oral tablet, extended release 1 Tab, Oral, At bedtime Buffalo 10 mg-325 mg oral tablet 1 Tab, Oral, Every 4 hours, as needed, for pain , 2 Refills, Maximum of 6 daily, Printed OxyContin 10 mg oral tablet, extended release 10 mg, 1 Tab, Oral, Every 12 hours, Paper Script sent with patient, medication was filled at [facility] in [place], [place]. Premarin 0.9 mg oral tablet 1 [...] Migraine without Aura with Status Migrainosus<%END%> 11/19/2011 [facility] Procedure Reports Procedure Reports [address], [address]. [place] [phone] PCVUNAX: WINIFRED CHRISTIAN RMR #: [id number] #: [id number]: 1975DATE SEEN: 09/20/2011OTOX INJECTION PROCEDURE Identification of patient by nurse and physicianThe patient was identified by me as requested by Dr. Diana Garcia. Consent for procedureVital SignsPhysical ExaminationTEMP BP Pulse RR MAP O2 Sat 36.6138/[id number] Blood Pressure Location: Left arm Oxygen Therapy: [...] also given. 3. A followup with Dr. aGrcia in 6 weeks. Appointment made. 4. I was assisted by Dr. Garcia for the procedure and the procedure was done at her request. Procedure note dictated by Prabha Randolph M.D. TR:OR96506HR:09/20/2011 15: 52DT:09/21/2011 21:51TED#:[id number] [Electronically Signed on 09.22.2011 07:25 am] Zulma Randolph MD </br> 09/20/2011 [ Electronically Signed on 09.22.2011 07:25 am] Zulma Randolph MD [facility] Ambulatory Depart Summary Ambulatory Depart Summary <%UDTHART_CLINIC_ HEADER_UDT%>[facility] [address] [place] [address], [address] [place] [address] <%END%> PERSON INFORMATION Name <%NAME%>WINIFRED CHRISTIAN<%END%> Age <%AGE%> 36 Years<%END%> <%%>1975<%END%> Sex <%GENDER%>Female<%END%> Language <%LANGUAGE%>[place]izen [place]<%END%> PCP <%PCP%>None, Stated<%END%> Marital Status <%MARITALSTAT%><%END%> Phone <%PHONE%> <%END%> Time Zone <%TIMEZONE%><%END%> MRN <%ALIASPMRN%>[id number]<%END%> Visit Id <%ALIASEVISITID%><%END%> Acct# <%ALIASEFIN NBR%>[id number]<%END%> Visit Reason <%RFV%>FOLLOW UP AFTER TRIGGER POINT<%END%> Specialty <%SPECIALTY%><%END%> Enc Type <%ENCNTRTYPE%>[facility]<%END%> Med Service <%MEDSERVICE%>OUTPT-Outpatient/Hospital<%END%> Referred by <%REFERREDBY%><%END%> Track Group <%TRACKGROUP%>Clinic Discharge Process<%END%> Discharge <%DISCHDTTM%><%END%> Tracking Id <%TRACKINGID%><%END%> Checkout <%CHECKOUTDTTM%><%END%> Checkin <%CHECKINDTTM%><%END%> Acuity <%ACUITY%><%END%> Dispo Type <%DISDISP%><%END%> Arrival <%ARRIVALDTTM%>09/20/2011 2:15 PM<%END%> Reg Status <%REGSTATUS%><%END%> LOS <%LOSTRACK%><%END%> Address: <%ADDRESS%>[address] [facility] [place] [place] [address]<%END%> PHYS DOC NOTES<%PHYDOC%><%END%> PROVIDER INFORMATION <%PROVROLETBL%><%END%>VITALS INFORMATION [...] 1 Tab, Every 6 hours, 0 Refills Maxalt-MOLD CUTTING MACHINE OPERATOR 10 mg oral tablet, disintegrating 10 mg, [...] Follow up: <%FOLLOWUPTABLE%>With: Address: When: Diana Garcia [facility] 1, [address] [facility], [place] [address] [facility] (1) 11/19/2011 14:30:00 Comments: <%END%>DIAGNOSIS<%DIAGNOSIS%>Intractable Chronic Migraine without Aura with Status Migrainosus; Cervical myofascial pain syndrome<%END%> 09/20/2011 [facility] Amb Nurs Intake Event Amb Nurs Intake Event 09/20/2011 [facility] Office/ Clinic Notes Office/Clinic Notes [address], [address]. [place] [phone] ZFNLRDN: WINIFRED CHRISTIAN RMR #: [id number] #: [id number]: 1975DATE SEEN: 09/20/2011Chief ComplaintPatient is here for [...] hours, Comment: 1 tab po 4 x daily.Maxalt-MOLD CUTTING MACHINE OPERATOR 10 mg oral tablet, disintegrating (rizatriptan), 10 [...] sent with patient, medication was filled at [facility] in [place], [place].Premarin 0.9 mg oral tablet (conjugated estrogens), [...] KIND Procedure HistoryHysterectomy - vaginal *tonsillectomyHernia repair w9Dgkug BackNeck Surgery q4Hrqfuu HistoryAlcohol Use: CurrentAlcohol Type: WineAlcohol Frequency: Other: occ.Caffeine Use: CurrentCaffeine Type: SodaCaffeine Frequency: Other: occ.Current Tobacco Usage: DeniesRecreational Drug Use: DeniesPhysical ExaminationTEMP BP Pulse RR MAP O2 Sat 36.6138/ 5562981780.67Blood Pressure Location: Left arm Oxygen Therapy: Room [...] hours.TR:CLINECDD:09/20/2011 16:36 / 09/20/2011 16:38DT:09/22/2011 09:08 09/22/2011 09:32TED#:[id number] / [id number] [Electronically Signed on 09.23.2011 06:46 am] Diana Garcia MD </br> 09/20/2011 [ Electronically Signed on 09.23.2011 06:46 am] Diana Garcia MD [facility] Office/Clinic Notes Office/Clinic Notes Corrected copy[address] [place] [phone] RGKTCFV: WINIFRED CHRISTIAN R #: [id number] #:[id number]: 04/1975DATE SEEN: 08/31/2011Chief ComplaintNeck pain, back pain, [...] is scheduled to see a surgeon in [place] on September 06 for a consultation for [...] hours, Comment: 1 tab po 4 x daily.Maxalt-MOLD CUTTING MACHINE OPERATOR 10 mg oral tablet, disintegrating (rizatriptan), 10 [...] well. Procedure HistoryHysterectomy - vaginal *tonsillectomyHernia repair s2Fpvwz BackNeck Surgery l6Qgytbr HistoryCurrent Tobacco Usage: DeniesEducation: CollegePatient denies any use of alcohol or street drugs. Patient does have an educational history of college. She does live with her . She does report difficulties in her ADL's. Living Situation: Home with spouse Physical ExaminationTEMP BP Pulse RR MAP O2 Sat 36.9124/16151372.67Blood Pressure Location: Right arm Weight Height BMI BSA 91.900 kg (202.60 lbs) 157.0 cm37.32.0020 f7Gktsq: Standing digital Patient's pain scale is 4 [...] have plans to see a neurosurgeon in [place], [place], on September 06 for a consultation [...] this evening.TR: Tiffany: 09/08/2011 13:18:00DR: DE: JOB#: [id number] cc:Bryn Escamilla M.D., COLLIN Tillman, ph: TR:CLINECDD:08/31/2011 16:05DT:09/01/2011 09:02CR: 09/09/2011 16:14 msmTED#:[id number] [Electronically Signed on 09.13.2011 06:48 am] Diana Garcia MD </br> 08/31/2011 [ Electronically Signed on 09.13.2011 06:48 am] Diana Garcia MD [facility] Ambulatory Depart Summary Ambulatory Depart Summary <%UDTHART_CLINIC_ HEADER_UDT%>[facility] MEDICINE [address] [place] [address], [address] [address] <%END%> PERSON INFORMATION Name <%NAME%>WINIFRED CHRISTIAN Jhonny<%END%> Age <%AGE%> 36 Years<%END%> <%%>1975<%END%> Sex <%GENDER%>Female<%END%> Language <%LANGUAGE%>Citizen [place]<%END%> PCP <%PCP%>None, Stated<%END%> Marital Status <%MARITALSTAT%><%END%> Phone <%PHONE%> <%END%> Time Zone <%TIMEZONE%><%END%> MRN <%ALIASPMRN%>[id number]<%END%> Visit Id <%ALIASEVISITID%><%END%> Acct# <%ALIASEFIN NBR%>[id number]<%END%> Visit Reason <%RFV%>EVAL NECK PAIN AND HEADACHES<%END%> Specialty <%SPECIALTY%><%END%> Enc Type <%ENCNTRTYPE%>[facility]<%END%> Med Service <%MEDSERVICE%>OUTPT-Outpatient/Hospital<%END%> Referred by <%REFERREDBY%><%END%> Track Group <%TRACKGROUP%>Clinic Discharge Process<%END%> Discharge <%DISCHDTTM%><%END%> Tracking Id <%TRACKINGID%><%END%> Checkout <%CHECKOUTDTTM%><%END%> Checkin <%CHECKINDTTM%><%END%> Acuity <%ACUITY%><%END%> Dispo Type <%DISDISP%><%END%> Arrival <%ARRIVALDTTM%>08/31/2011 1:41 PM<%END%> Reg Status <%REGSTATUS%><%END%> LOS <%LOSTRACK%><%END%> Address: <%ADDRESS%>[address] [facility] [place] [address]<%END%> PHYS DOC NOTES<%PHYDOC%><%END%> PROVIDER INFORMATION <%PROVROLETBL%><%END%>VITALS INFORMATION [...] 1 Tab, Every 6 hours, 0 Refills Maxalt-MOLD CUTTING MACHINE OPERATOR 10 mg oral tablet, disintegrating 10 mg, [...] Follow up: <%FOLLOWUPTABLE%>With: Address: When: Diana Garcia [address] [place] [phone] [facility] ([facility] 09/20/2011 14:30:00 Comments: <%END%>DIAGNOSIS<%DIAGNOSIS%>Migraine; Pain in Back; Neck pain<%END%> 08/31/2011 [facility] Amb Nurs Intake w Hx Event Amb Nurs Intake w Hx Event 08/31/2011 [facility] Level of Functioning [facility] Level of Functioning [facility] 08/31/2011 [facility] Vital Signs Encounters Location Location Details Encounter Type Encounter Number Reason For Visit Attending Provider ADM Date DC Date Status Source [facility] [id number] EVAL NECK PAIN AND HEADACHES DIANA GARCIA 2011 Active [facility] ( Outpatient) [id number] EVAL NECK PAIN AND HEADACHES DIANA GARCIA 08/31/2011 08/31/2011 Active [facility] [id number] FOLLOW UP AFTER TRIGGER POINT DIANA GARCIA Active [facility] ( Outpatient) [id number] FOLLOW UP AFTER TRIGGER POINT DIANA GARCIA 09/20/2011 09/20/2011 [facility] [address] [facility] [id number] FOLLOW UP Diana Garcia Active [facility] [id number] FOLLOW UP DIANA GARCIA 11/19/2011 Active [facility] [id number] FOLLOW UP DIANA GARCIA 11/19/2011 11/19/2011 Active [facility] [id number] INJECTIONS DIANA GARCIA 01/14/2012 Active [facility] [id number] INJECTIONS DIANA GARCIA 01/1301/14/2012 Active [facility] [id number] 2 MONTH FOLLOW UP DIANA GARCIA 03/14/2012 Active [facility] [id number] 2 MONTH FOLLOW UP DIANA GARCIA 201103/14/2012 Active [facility] [id number] Folllow Up DIANA GARCIA 06/13/2012 Active [facility] [id number] FOLLLOW UP DIANA GARCIA 06/13/2012 06/13/2012 Active [facility] [id number] Follow Up/Medication DIANA GARCIA 10/05/2012 Active [facility] [id number] FOLLOW UP/MEDICATION DIANA GARCIA 10/05/2012 Active [facility] [address] [place] [address] [id number] INJECTION Diana Garcia 2012 [facility] [id number] INJECTION DIANA GARCIA 201210/06/2012 Active [facility] [address] [facility] [id number] Follow Up / Botox Injection Scheduled Diana Garcia 10/27/2012 Active [facility] [id number] Follow Up / Botox Injection Scheduled DIANA GARCIA 12/29/2012 12/29/2012 [facility] [address] [place] [address] [id number] FOLLOW UP AFTER BOTOX 12-29-12 Diana Garcia 2013 2013 Active [facility] [id number] MED MANAGEMENT/ POSSIBLE INJ/AND BOTOX EVAL DIANA GARCIA 05/10/2013 Active [facility] [address] [facility] [id number] 1 MONTH MANAGEMENT Diana Garcia 06/07/2013 Active [facility] [address] [facility] [id number] 4 MONTH MED MANAGMENT Diana Garcia 06/14/2013 [facility] [address] [facility] [id number] FOLLOW UP Diana Garcia Active [facility] Care Procedures Plan of Care Social History Assessment and Plan Family History Value Date Source Advance Directives Order Name Results Value Date Source
[2016-10-31] MEDS ORDERED: MELO-249 (07:04)
[2016-10-31] MEDS ORDERED: HCT25T (07:04)
[2016-10-31] MEDS ORDERED: IBUP800T26 (07:04)
[2016-10-31] MEDS ORDERED: ARIP10TA16 (07:04)
[2016-10-31] MEDS ORDERED: DULO60CA58 (07:04)
[2016-10-31] MEDS ORDERED: TIZA2TAB3 (07:04)
[2016-10-31] MEDS ORDERED: TOPI50TA86 (07:04)
[2016-10-31] MEDS ORDERED: VENL150C53 (07:04)
[2016-10-31] MEDS ORDERED: GABA800T2 (07:04)
[2016-10-31] MEDS ORDERED: SUMA4CAR (07:04)
[2016-10-31] MEDS ORDERED: ESTR1TAB24 (07:04)
[2016-10-31] MEDS ORDERED: HYDROcodone/APAP 5 MG/325 MG (NORCO) TAB PO ONE (07:25)
[2016-10-31] MEDS ORDERED: HYDR-3702 PO (07:34)
[2016-10-31] MEDS ORDERED: AMOX1TAB12 PO (07:34)
[2016-10-31] MEDS ORDERED: AMOXICILLIN/CLAVULANATE 875MG-125MG (AUGMENTIN) TABLET PO ONE (07:40)
[2016-10-31 08:22] VITALS: BP 128/87
[2016-11-02] MEDS ORDERED: BACL20TA PO (15:19)
== END 2016-10-31 08:20 | disposition home or self-care (01) ==
LOC: EDUNIT# 06:43 → ED 06:45
DX: R68.84 Jaw pain (principal); K02.9 Dental caries, unspecified
CPT/HCPCS: 99283; A9270